=== PATIENT | female | born 1970 | race Caucasian/White ===

== ENCOUNTER 2022-04-25 06:31 | Emergency (ER) | payer MEDICAID, OTHER ==
[~2022-04-25] VITALS: Ht 149.9 cm; Wt 90.0 kg
[2022-04-25 08:48] LABS: Basophils # (auto) 0 10 ^3/uL (0-0.2); Eosinophils # (auto) 0.1 10 ^3/uL (0-0.8); Monocytes # (auto) 0.5 10 ^3/uL (0-1.3)
[2022-04-25 08:50] LABS: Basophils % (auto) 0.7 % (0.0-2.0); Eosinophils % (auto) 2.3 % (0.0-7.0); Hematocrit 44.2 % (36.0-46.0); Lymphocytes # (auto) 0.8 10 ^3/uL (0.4-5.4); Lymphocytes % (auto) 12.8 % (10.0-50.0); Mean Corpuscular Hemoglobin 25.4 pg (28.0-32.0); Mean Corpuscular Hgb Conc. 31.8 g/dL (32.0-36.0); Mean Corpuscular Volume 80.1 fL (80.0-100.0); Monocytes % (auto) 7.3 % (0.0-12.0); Neutrophils # (auto) 4.8 10 ^3/uL (1.6-8.6); Neutrophils % (auto) 76.9 % (37.0-80.0); Red Blood Cells 5.51 10^6/uL (4.0-5.20); Red Cell Distribution Width 15.6 % (11.8-14.3); White Blood Cell 6.2 10^3/uL (4.4-10.8)
[2022-04-25 09:02] LABS: Albumin 3.5 g/dL (3.4-5.0); Calcium 9.4 mg/dL (8.5-10.1); Potassium 3.8 mmol/L (3.5-5.1)
[2022-04-25 09:06] LABS: BUN/Creatinine Ratio 10.5; Bilirubin, Total 0.6 mg/dL (0.2-1.0); Total Protein 8.4 g/dL (6.4-8.2)
[2022-04-25 12:38] LABS: Urine Bacteria NONE SEEN /hpf (None Seen); Urine Blood Negative /uL (Negative); Urine Specific Gravity 1.009 (1.001-1.035); Urine WBC 4 /hpf (0 - 5)
[2022-04-25] MEDS ORDERED: AZIT1POW PO (14:40)
[2022-04-25] MEDS ORDERED: METH4PAK PO (14:40)
[2022-04-25] MEDS ORDERED: ASCO500T11 PO (14:40)
[2022-04-25 14:45] VITALS: BP 177/83
[2022-04-25] MEDS ORDERED: methylPREDNISolone SOD SUCC 125 MG/2 ML VL IM ONE (14:45)
== END 2022-04-25 15:07 | disposition home or self-care (01) ==
LOC: ER 06:31
DX: U07.1 COVID-19 (principal); J18.9 Pneumonia, unspecified organism; R06.00 Dyspnea, unspecified
CPT/HCPCS: 36415; 71045; 80053; 81001; 83880; 84484; 85025; 87426; 93005; 96372; 99285; J2930

== ENCOUNTER 2023-10-16 08:42 | Emergency (ER) | payer MEDICAID ==
[~2023-10-16] VITALS: Ht 149.9 cm; Wt 70.7 kg
[~2023-10-16 08:42] MED LIST: ASCO500T11 PO; AZIT1POW PO; METH4PAK PO
[2023-10-16 09:46] VITALS: BP 118/59; PULSE 85; RESP 18; TEMP 99.3; O2SAT 98
[2023-10-16] MEDS ORDERED: cefTRIAXone SOD 1,000 MG VL IM ONE (10:00)
[2023-10-16] MEDS ORDERED: AZIT-81 PO (10:00)
[2023-10-16] MEDS ORDERED: METH4PAK PO (10:00)
[2023-10-16] MEDS ORDERED: LIDOCAINE 1% HCL (LOCAL ANESTH.) INJ 20ML MDV IJ ONE (10:00)
== END 2023-10-16 10:16 ==
LOC: ER 08:42
DX: U07.1 COVID-19 (principal); J03.90 Acute tonsillitis, unspecified; Z79.2 Long term (current) use of antibiotics; Z79.899 Other long term (current) drug therapy
CPT/HCPCS: 96372; 99283; J0696; J2001

== ENCOUNTER 2025-03-09 13:23 | Inpatient (IN) | payer MEDICAID ==
[~2025-03-09] VITALS: Ht 149.9 cm; Wt 72.0 kg
[~2025-03-09 13:23] MED LIST changes: +AZIT-185 PO
--- NOTE | 2025-03-09 13:49 | ED.PDOC ---
History of Present Illness HPI Comments 54-year-old female came to the ER complaining of shortness a breath which started about a week ago. She does have a history of breast cancer which was initially diagnosed in 2017. She had remission until last year which she flared up. She has been followed at [facility]. She is on home oxygen. Her satur ation did go down in the low 70s when she came to the ER. Continue to monitor. Time Seen by MD: 13:34 Primary Care Provider: NONE Reviewed Notes: Nurses Notes, Medications, Allergies Allergies: Coded Allergies: Cephalexin (Verified Allergy, Unknown, 03/09/25) Latex (Verified Allergy, Unknown, 03/09/25) Uncoded Allergies: HEAT (Allergy, Unknown, 03/09/25) SUNSHINE (Allergy, Unknown, 03/09/25) Home Meds Active Scripts Methylprednisolone (Medrol Dosepak) 4 Mg Nilesh, 4 MG PO UD, #21 TAB UAD Prov:SUZI RASHID 10/16/23 Azithromycin (ZITHROMAX TABLET) 250 Mg Tb, 250 MG PO DAILY, #6 TAB Prov:SUZI RASHID 10/16/23 Ascorbic Acid (VITAMIN C TABLET) 500 Mg Tb, 1 TAB PO BID, #60 TAB Prov:VANESSA BOUDREAUX MD 04/25/22 Methylprednisolone (Medrol Dosepak) 4 Mg Nilesh, 4 MG PO UD, #21 TAB UAD Prov:VANESSA BOUDREAUX MD 04/25/22 Azithromycin (Zithromax) 1 Gm Pow, 1 PACK PO ONCE, #1 PACK Prov:VANESSA BOUDREAUX MD 04/25/22 Information Source: Patient Mode of Arrival: Wheelchair Severity: Moderate Timing: Days Duration: Since onset Past Medical History PAST MEDICAL HISTORY: Cancer Surgical History: Denies all surgeries PROPERTY INSPECTOR History: No Pertinent PROPERTY INSPECTOR History Family History Family History: Reviewed,noncontributory to illness, Family hx of DM Social History Smoker: Non-Smoker Alcohol: Denies ETOH Use Drugs: Denies Drug Use Lives In: Home Constitutional: denies: chills, diaphoresis, fatigue, fever, malaise, sweats, weakness, others EENTM: denies: blurred vision, double vision, ear bleeding, ear discharge, ear drainage, ear pain, ear ringing, eye pain, eye redness, hearing loss, mouth pain, mouth swelling, nasal discharge, nose bleeding, nose congestion, nose pain, photophobia, tearing, throat pain, throat swelling, voice changes, others Respiratory: reports: shortness of breath; denies: cough, hemoptysis, orthopnea, SOB at rest, SOB with excertion, stridor, wheezing, others Cardiovascular: reports: chest pain; denies: dizzy spells, diaphoresis, Dyspnea on exertion, edema, irregular heart beat, left arm pain, lightheadedness, palpitations, PND, syncope, others Gastrointestinal: denies: abdomen distended, abdominal pain, blood streaked bowels, constipated, diarrhea, dysphagia, difficulty swallowing, hematemesis, melena, nausea, poor appetite, poor fluid intake, rectal bleeding, rectal pain, vomiting, others Genitourinary: denies: abnormal vagina bleeding, burning, dyspareunia, dysuria, flank pain, frequency, hematuria, incontinence, pain, , vagina discharge, urgency, others Neurological: denies: dizziness, fainting, headache, left sided numbness, left sided weakness, numbness, paresthesia, pre-existing deficit, right sided numbness, right sided weakness, seizure, speech problems, tingling, tremors, weakness, others Musculoskeletal: denies: back pain, gout, joint pain, joint swelling, muscle pain, muscle stiffness, neck pain, others Integumetry: denies: bruises, change in color, change in hair/nails, dryness, laceration, lesions, lumps, rash, wounds, others Allergic/Immunocompromised: denies: Difficulty Healing, Frequent Infections, Hives, Itching, others Hematologic/Lymphatic: denies: anemia, blood clots, easy bleeding, easy bruising, swollen glands, others Endocrine: denies: excessive hunger, excessive sweating, excessive thirst, excessive urination, flushing, intolerance to cold, intolerance to heat, unexplained weight gain, unexplained weight loss, others Psychiatric: denies: anxiety, bipolar disorder, depression, hopeless, panic disorder, schizophrenia, sleepless, suicidal, others Physical Exam General Appearance: Moderate Distress HEENT: Normal ENT Inspection, Pharynx Normal, TMs Normal Neck: Full Range of Motion, Non-Tender, Normal, Normal Inspection Respiratory: Chest Non-Tender, Lungs Clear, No Accessory Muscle Use, No Respiratory Distress, Normal Breath Sounds Cardiovascular: No Edema, No JVD, No Murmur, No Gallop, Normal Peripheral Pulses, Regular Rate/Rhythm Breast Exam: Deferred Gastrointestinal: No Organomegaly, Non Tender, No Pulsatile Mass, Normal Bowel Sounds, Soft Genitalia: Deferred Pelvic: Deferred Rectal: Deferred Extremities: No calf tenderness, Normal capillary refill, Normal inspection, Normal range of motion, Non-tender, No pedal edema Musculoskeletal : Apperance: Normal Neurologic: Alert, general expeditor II-XII nml as Tested, No Motor Deficits, Normal Affect, Normal Mood, No Sensory Deficits Cerebellar Function: NOT DONE Reflexes: NOT DONE Skin: Dry, Normal Color, Warm Peripheral Pulses: 3+ Radial (R), 3+ Radial (L) Lymphatic: No Adenopathy Was a procedure done? Was a procedure done?: No Differential Dx Considerations may include: Pneumonitis Electrolyte imbalance X-Ray, Labs, Meds, VS Vital Signs Date Time Temp Pulse Resp B/P (MAP) Pulse Ox O2 Delivery O2 Flow Rate FiO2 03/09/25 14:23 24 88 Room Air* 0 21 03/09/25 14:06 98.4 95 24 119/72 (88) 88 98.4 Lab Test 03/09/25 14:03 03/09/25 13:57 Range/Units Urine Color Light-yellow Yellow Urine Clarity Clear Clear Urine pH 6.0 5.0-9.0 Urine Specific [place] > 1.050 H 1.001-1.035 Urine Protein Trace H Negative Urine Ketones Negative Negative Urine Blood Trace H Negative /uL Urine Nitrite Negative Negative Urine Bilirubin Negative Negative Urine Urobilinogen Normal Negative mg/dL Urine Leukocyte Esterase 2+ Negative /uL Urine RBC 5 0 - 4 /hpf Urine Microscopic WBC 29 H 0-5 /HPF Urine Squamous Epithelial Cells Few <5 /hpf Urine Bacteria Few H None Seen /hpf Urine Glucose Normal Normal mg/dL White Blood Count 6.6 4.4-10.8 10^3/uL Red Blood Count 4.60 4.0-5.20 10^6/uL Hemoglobin 13.6 12.2-16.2 g/dL Hematocrit 41.0 36.0-46.0 % Mean Corpuscular Volume 89.3 80.0-100.0 fL Mean Corpuscular Hemoglobin 29.5 28.0-32.0 pg Mean Corpuscular Hemoglobin Concent 33.1 32.0-36.0 g/dL Red Cell Distribution Width 18.0 H 11.8-14.3 % Platelet Count 216 140-450 10^3/uL Mean Platelet Volume 8.1 6.9-10.8 fL Neutrophils (%) (Auto) 86.6 H 37.0-80.0 % Lymphocytes (%) (Auto) 4.4 L 10.0-50.0 % Monocytes (%) (Auto) 7.6 0.0-12.0 % Eosinophils (%) (Auto) 1.0 0.0-7.0 % Basophils (%) (Auto) 0.4 0.0-2.0 % Neutrophils # (Auto) 5.7 1.6-8.6 10 ^3/uL Lymphocytes # (Auto) 0.3 L 0.4-5.4 10 ^3/uL Monocytes # (Auto) 0.5 0-1.3 10 ^3/uL Eosinophils # (Auto) 0.1 0-0.8 10 ^3/uL Basophils # (Auto) 0 0-0.2 10 ^3/uL Nucleated Red Blood Cells 0.0 % D-Dimer, Quantitative 1.61 H 0.0-0.49 mg/L FEU Sodium Level 140 136-145 mmol/L Potassium Level 3.7 3.5-5.1 mmol/L Chloride Level 104 98-107 mmol/L Carbon Dioxide Level 28 20-31 mmol/L Anion Gap 8 5-15 Blood Urea Nitrogen 11 9-23 mg/dL Creatinine 0.71 0.550-1.02 mg/dL Glomerular Filtration Rate Calc 100 >90 mL/min BUN/Creatinine Ratio 15.5 10.0-20.0 Serum Glucose 99 74-106 mg/dL Calcium Level 9.7 8.7-10.4 mg/dL Troponin I High Sensitivity 11 </=34 ng/L B-Type Natriuretic Peptide 10.15 0-100 pg/mL Current Medications Medications (Trade) Dose Ordered Sig/Mitali Route Start Time Stop Time Status Last Admin Ceftriaxone Sodium 50 ml @ 100 mls/hr ONCE ONCE IV 03/09/25 15:00 03/09/25 15:29 DC 03/09/25 16:08 Patient alert. Placed on oxygen. Complaining of shortness a breath. Answering questions. Possible pneumonitis. EKG reviewed does not show any acute changes. Reviewed her history. Explained to the patient. Continue monitoring. D-dimer elevated. Cardiac marker within normal limits. Was given Lovenox. Was given Rocephin. Was given azithromycin. Time of 1ST Reevaluation: 13:48 Reevaluation 1ST: Unchanged Patient Education/Counseling: Diagnosis, Treatment, Prognosis Family Education/Counseling: No Family Present Departure 1 Departure Time of Disposition: 13:49 Impression: Primary Impression: Pneumonitis Additional Impressions: Acute respiratory distress Elevated d-dimer Disposition: ADMITTED INPATIENT Admit to: Med Surg Condition: Guarded Critical Care Note Critical Care Time?: Yes (90 min-critical care time only) Critical care comment: Placed on oxygen Stability Stability form required: No Heart Score Heart Score: Heart Score Response (Comments) Value History Slightly Suspicious 0 EKG Normal 0 Age 45-64 1 Risk Factors >3 or Hx ASHD 2 Troponin Normal limit 0 Total 3 LESLIE PEREZ MD Mar 09, 2025 13:49
[2025-03-09 14:07] LABS: Basophils # (auto) 0 10 ^3/uL (0-0.2); Basophils % (auto) 0.4 % (0.0-2.0); Eosinophils # (auto) 0.1 10 ^3/uL (0-0.8); Hemoglobin 13.6 g/dL (12.2-16.2); Lymphocytes # (auto) 0.3 10 ^3/uL (0.4-5.4); Lymphocytes % (auto) 4.4 % (10.0-50.0); Mean Corpuscular Hemoglobin 29.5 pg (28.0-32.0); Mean Corpuscular Hgb Conc. 33.1 g/dL (32.0-36.0); Mean Corpuscular Volume 89.3 fL (80.0-100.0); Monocytes # (auto) 0.5 10 ^3/uL (0-1.3); Monocytes % (auto) 7.6 % (0.0-12.0); Neutrophils # (auto) 5.7 10 ^3/uL (1.6-8.6); Neutrophils % (auto) 86.6 % (37.0-80.0); Platelet Count (auto) 216 10^3/uL (140-450); White Blood Cell 6.6 10^3/uL (4.4-10.8)
--- NOTE | 2025-03-09 14:13 | DVH ---
INDICATION: sob TECHNIQUE: Frontal view of the chest. COMPARISON: CHEST PORTABLE on DOS: 04/25/22 FINDINGS: Cardiomegaly.. The heart and mediastinal contours are grossly unremarkable. There is no evidence of pleural disease. Increased interstitial opacities.. The bony structures of the chest are intact wi thout fracture. IMPRESSION: Cardiomegaly with CHF.
[2025-03-09 14:15] LABS: Chloride 104 mmol/L (98-107); Potassium 3.7 mmol/L (3.5-5.1); Sodium 140 mmol/L (136-145)
[2025-03-09 14:16] LABS: Anion Gap 8 (5-15); Calcium 9.7 mg/dL (8.7-10.4); Carbon Dioxide 28 mmol/L (20-31)
[2025-03-09 14:21] LABS: BUN/Creatinine Ratio 15.5 (10.0-20.0); Blood Urea Nitrogen 11 mg/dL (9-23); Glucose 99 mg/dL (74-106)
[2025-03-09 14:38] LABS: Urine Bacteria FEW /hpf (None Seen); Urine Blood TRACE /uL (Negative); Urine Clarity Clear (Clear); Urine Color Light-Yellow (Yellow); Urine Protein, UAD TRACE (Negative); Urine Squamous Epithelial Cell FEW /hpf (<5); Urine Urobilinogen Normal (Negative); Urine WBC 29 /HPF (0-5)
[2025-03-09 14:39] LABS: Urine Specific Gravity > 1.050 (1.001-1.035)
[2025-03-09] MEDS: IOHEXOL 350 MG/ML 100ML IJ ONE (15:53)
--- NOTE | 2025-03-09 15:55 | DVH ---
EXAM: CT CT ANGIO CHEST CONTRAST HISTORY: pe COMPARISON: Chest x-ray from earlier same day. PET-CT dated 01/18/2025 was not made available on the PACS system for viewing at this time. Radiation Dose: Chest: CTDI volume is 8.88 mGy. Dose-length product is 533.2 mGy*cm TECHNIQUE: Helical CT images of the chest were performed with IV contrast using pulmonary CTA protoco l. Sagittal and coronal reformatted images and 3D MIP images were obtained. This CT exam was performe d using 1 or more of the following dose reduction techniques: Automated exposure control, adjustment of the mA and/or kv according to patient size, or the use of iterative reconstruction techniques. FINDINGS: No pulmonary arterial filling defects are identified. There are moderate right and small le ft pleural effusions, with associated bilateral lower lobe atelectasis, greater on the right. There a re interstitial infiltrates throughout both lungs. There is marked peribronchial thickening. No pneum othorax. There are likely ill-defined enlarged lymph nodes in the upper mediastinum and subcarinal re gion. There is a moderate to large pericardial effusion. The heart is enlarged. The central pulmonar y arteries are ectatic. No thoracic aortic aneurysm or dissection. The left vertebral artery arises d irectly from the aortic arch. Multiple gallstones are identified. There is [id number] thoracic degenerative disc disease. There is slight thoracic dextroscoliosis. Central disc herniation causes moderate spinal canal stenosis at the T7-T8 level. IMPRESSION: 1. No evidence of pulmonary embolism. 2. Cardiomegaly, bilateral pleural effusions, diffuse bilateral interstitial infiltrates, and peribro nchial thickening suggestive of CHF exacerbation. Additionally, peribronchial thickening can be seen with reactive airways disease. 3. Moderate to large pericardial effusion. 4. Pulmonary arterial hypertension. 5. Ill-defined mediastinal lymphadenopathy was described on previous PET-CT dated 01/18/2025, althoug h those images are not available for my viewing at this time. 6. Cholelithiasis. The gallbladder is not fully imaged here. 7. T7-T8 central disc herniation causes moderate spinal canal stenosis at that level. Recommend follo w-up outpatient noncontrast thoracic spine MRI for better characterization as there may be mass effec t on the thoracic spinal cord.
[2025-03-09] MEDS: ENOXAPARIN SOD 80 MG/0.8ML SYRINGE SC ONE (16:06)
[2025-03-09] MEDS: cefTRIAXone 1GM/50ML D5W 50 ML IV ONE (16:08)
[2025-03-09 16:40] VITALS: PULSE 94; RESP 15; O2SAT 94
[2025-03-09] MEDS: AZITHROMYCIN 500MG/ 250ML 250 ML IV ONE (17:25)
[2025-03-09 19:30] VITALS: PULSE 94; RESP 20; O2SAT 94
[2025-03-09] MEDS ORDERED: ACETAMINOPHEN 325 MG TAB PO PRN (22:15)
--- NOTE | 2025-03-09 22:30 | DVHHPRES ---
History of Present Illness Resident Creating Document: BEBTEO MARQUES RESIDENT History of Present Illness This is a 54-year-old female with past medical history of stage IV breast cancer HER2 positive (currently on chemotherapy in [facility]). Patient presented to the ED with chief complaint of shortness of breaths. The patient states that his shortness of breaths started one week and a half ago and states that is worse in supine position or laying down and improves with the patient is on sitting position or leaning forward. Patient states that she does not use oxyge n at home. The patient denies chest pain, fever/chills, abdominal tenderness, lower extremity swelling or pain or any other associated symptoms at this time. Upon admission, patient was requiring 4 L of oxygen through nasal cannula. Initial chest x-ray was showing cardiomegaly with mild congestion or scarring tissue. A CT angio of the chest was performed showing no evidence of pulmonary embolism but was showing bilateral pleural effusion that was worse in the right side with diffuse bilateral interstitial infiltrates and peribronchial thickening. There was also moderate to large pericardial effusion. We will order a chest ultrasound to quantify fluid in the right lung base determine the need of right-sided thoracentesis. We will consult interventional radiologist for possible right-sided thoracentesis and pericardiocentesis. We will admit the patient for further assessment and management. Past medical history: Stage IV breast cancer HER2 positive. The patient states that was initially diagnosed in 2006 with stage III breast cancer, at that time she received six rounds of chemotherapy, surgery and radiation for one month. S he was in remission until June of 2022 where she was diagnosed again with stage IV breast cancer and has been on chemotherapy since then. Two thousand twenty-three apparently patient had metastasis and received brain radiation. Patient still on chemotherapy at this time which we will be prolonged lung live. No additional past medical history per patient. Past surgical history: Left-sided lumpectomy with removal of seven lymph nodes. Social history: Denies smoking, alcohol or drug intake. lives with her family Past Surgical History: Other (Left lumpectomy and removal of seven lymph nodes) Family History: None Smoke: No ALCOHOL: none Drugs: None Lives: with Family Domestic Violence: Neg Review of Systems Constitutional: No: Fever, Chills, Sweats, Weakness, Malaise, Other Eyes: No: Pain, Vision change, Conjunctivae inflammation, Eyelid inflammation, Other, Redness ENT: No: Ear pain, Ear discharge, Nose pain, Nose discharge, Nose congestion, Mouth pain, Mouth swelling, Throat pain, Throat swelling, Other Respiratory: Shortness of breath, SOB with excertion; No: Cough, Dry, Wheezing, Hemoptysis, Pleuritic Pain, Sputum, Wheezing, Other Cardiovascular: Orthopnea; No: Chest Pain, Palpitations, Paroxysmal Noc. Dysp nicole, Edema, Lt Headedness, Other Gastrointestinal: No: Nausea, Vomiting, Abdominal Pain, Diarrhea, Constipation, Melena, Hematochezia, Other Genitourinary: No Dysuria, No Frequency, No Incontinence, No Hematuria, No Retention, No Other Musculoskeletal: No: other, neck pain, shoulder pain, arm pain, back pain, hand pain, leg pain, foot pain Skin: No: Rash, Lesions, Jaundice, Bruising, Other Neurological: No: Weakness, Numbness, Incoordination, Change in speech, Confusion, Seizures, Other Allergies: Coded Allergies: Cephalexin (Verified Allergy, Unknown, 03/09/25) Latex (Verified Allergy, Unknown, 03/09/25) Uncoded Allergies: HEAT (Allergy, Unknown, 03/09/25) SUNSHINE (Allergy, Unknown, 03/09/25) Medications Current Medications Medications Dose Ordered Sig/Mitali Route Start Time Stop Time Status Last Admin Dose Admin Acetaminophen 650 mg Q6HP PRN PO 03/09/25 22:15 UNV Enoxaparin Sodium 40 mg DAILY SC 03/10/25 10:00 UNV Exam Vital Signs Vital Signs Date Time Temp Pulse Resp B/P (MAP) Pulse Ox O2 Delivery O2 Flow Rate FiO2 03/09/25 20:00 86 20 134/84 (101) 94 03/09/25 16:40 Nasal Cannula* 2 28 03/09/25 14:06 98.4 98.4 General Appearance: Alert, Oriented X3, Cooperative, mild distress HEENT: Atraumatic, PERRLA, EOMI, Mucous membr. moist/pink Respiratory: Normal air movement, Other (Patient is currently requiring 4 L of oxygen through nasal cannula. There are bilateral lung crackles on both castellano with decreased breath sounds in the right lung base.) Cardiovascular: Regular rate, Normal S1, Normal S2, No murmurs Abdominal: Normal bowel sounds, Soft, No tenderness, No hepatospenomegaly Extremities: No clubbing, No cyanosis, No edema, Normal pulses, No tenderness/swelling Skin: No rashes, No breakdown, No significant lesion Neuro: Normal gait, Normal speech, Strength at 5/5 X4 ext, Normal tone, Sensation intact, Cranial nerves 3-12 NL, Reflexes 2+ Psych/Mental Status: Mental status NL, Mood NL Labs/Xrays Labs Test 03/09/25 14:03 03/09/25 13:57 Range/Units Urine Color Light-yellow Yellow Urine Clarity Clear Clear Urine pH 6.0 5.0-9.0 Urine Specific [place] > 1.050 H 1.001-1.035 Urine Protein Trace H Negative Urine Ketones Negative Negative Urine Blood Trace H Negative /uL Urine Nitrite Negative Negative Urine Bilirubin Negative Negative Urine Urobilinogen Normal Negative mg/dL Urine Leukocyte Esterase 2+ Negative /uL Urine RBC 5 0 - 4 /hpf Urine Microscopic WBC 29 H 0-5 /HPF Urine Squamous Epithelial Cells Few <5 /hpf Urine Bacteria Few H None Seen /hpf Urine Glucose Normal Normal mg/dL White Blood Count 6.6 4.4-10.8 10^3/uL Red Blood Count 4.60 4.0-5.20 10^6/uL Hemoglobin 13.6 12.2-16.2 g/dL Hematocrit 41.0 36.0-46.0 % Mean Corpuscular Volume 89.3 80.0-100.0 fL Mean Corpuscular Hemoglobin 29.5 28.0-32.0 pg Mean Corpuscular Hemoglobin Concent 33.1 32.0-36.0 g/dL Red Cell Distribution Width 18.0 H 11.8-14.3 % Platelet Count 216 140-450 10^3/uL Mean Platelet Volume 8.1 6.9-10.8 fL Neutrophils (%) (Auto) 86.6 H 37.0-80.0 % Lymphocytes (%) (Auto) 4.4 L 10.0-50.0 % Monocytes (%) (Auto) 7.6 0.0-12.0 % Eosinophils (%) (Auto) 1.0 0.0-7.0 % Basophils (%) (Auto) 0.4 0.0-2.0 % Neutrophils # (Auto) 5.7 1.6-8.6 10 ^3/uL Lymphocytes # (Auto) 0.3 L 0.4-5.4 10 ^3/uL Monocytes # (Auto) 0.5 0-1.3 10 ^3/uL Eosinophils # (Auto) 0.1 0-0.8 10 ^3/uL Basophils # (Auto) 0 0-0.2 10 ^3/uL Nucleated Red Blood Cells 0.0 % D-Dimer, Quantitative 1.61 H 0.0-0.49 mg/L FEU Sodium Level 140 136-145 mmol/L Potassium Level 3.7 3.5-5.1 mmol/L Chloride Level 104 98-107 mmol/L Carbon Dioxide Level 28 20-31 mmol/L Anion Gap 8 5-15 Blood Urea Nitrogen 11 9-23 mg/dL Creatinine 0.71 0.550-1.02 mg/dL Glomerular Filtration Rate Calc 100 >90 mL/min BUN/Creatinine Ratio 15.5 10.0-20.0 Serum Glucose 99 74-106 mg/dL Calcium Level 9.7 8.7-10.4 mg/dL Troponin I High Sensitivity 11 </=34 ng/L B-Type Natriuretic Peptide 10.15 0-100 pg/mL Assessment/Plan Assessment/Plan Assessment/plan Acute hypoxic respiratory failure likely due to right-sided pleural effusion and pericardial effusion Right-sided pleural effusion likely due to malignancy Acute pericardial effusion likely due to malignancy Possible acute multifocal pneumonia Acute urinary tract infection History of breast cancer diagnosed in 2017, currently on chemotherapy ([facility]) Plan -initial chest x-ray showed cardiomegaly with congestion/possible scarring tissue -CT angio of the chest showed no evidence of pulmonary embolism but did show bilateral pleural effusion worse in the right side. There was also diffuse bilateral interstitial infiltrates and peribronchial thickening. There was also moderate to large pericardial effusion. -patient is currently requiring 4 L of oxygen through nasal cannula. Shortness of breath is worse lying down, improved in sitting position and leaning forward. -continue azithromycin and ceftriaxone for possible bilateral interstitial infiltrates. This imaging findings could also be due to scarring tissue. -start furosemide 40 mg IV daily -strict in's and out -ordered chest ultrasound to quantify right-sided pleural effusion and determine the need of right-sided thoracentesis. -ordered echocardiogram -consulted interventional radiologist for right-sided thoracentesis and possible pericardiocentesis. Goals of care discussed with the patient at bedside for >35min, FULL CODE Plan discussed with Dr. Whaley Plan discussed with: Patient My Orders Orders - BEBETO MARQUES Procedure Category Date Status Time Admit ADMIT 03/09/25 Transmitted 22:03 Code Status CODE 03/09/25 Transmitted 22:03 Vital Signs WANG 03/09/25 In Process 22:03 Review Orders With WANG 03/09/25 In Process Adm. 22:03 Encourage Activity As WANG 03/09/25 In Process Tolerate 22:03 Npo (Nothing By DIET 03/10/25 Transmitted Mouth) Diet Breakfast Acetaminophen Tablet PHA 03/09/25 Logged (Tylenol Tablet) 22:15 Notify Of Changes WANG 03/09/25 In Process From Base 22:03 Advance Directive WANG 03/09/25 In Process 22:03 Echo 2d Mode Cardiac US 03/09/25 Logged DOP 22:03 Basic Metabolic Panel LAB 03/10/25 Verified 04:00 Complete Blood Count LAB 03/10/25 Verified 04:00 Lipid Panel LAB 03/09/25 Logged 22:03 Urine Bacterial VASU 03/09/25 In Process Culture 22:03 Patient Condition ORDERS 03/09/25 Transmitted 22:03 Allergies WANG 03/09/25 In Process 22:03 Drug Screen LAB 03/09/25 In Process 22:03 Hemoglobin A1c LAB 03/09/25 Logged 22:03 Enoxaparin Sodium PHA 03/10/25 Logged (Lovenox) 10:00 Chest Ultrasound US 03/09/25 Logged 22:09 Azithromycin Tablet PHA 03/10/25 Verified (Zithromax Tablet) 10:00 Ceftriaxone Ivpb PHA 03/10/25 Verified Rocephin 10:00 Albuterol Medneb PHA 03/09/25 Verified (Ventolin Medneb) 22:15 Ipratropium Medneb PHA 03/09/25 Verified (Atrovent Medneb) 22:15 Furosemide Injection PHA 03/10/25 Verified (Lasix Injection) 10:00 Strict I & O WANG 03/09/25 Verified 22:10 * Radiologist Consult CONS 03/09/25 Verified 22:10 Date of Service: Mar 09, 2025 Billing Provider: BEBETO MARQUES Common Visit Codes: 75084-[id number] INP/OBS CARE (HIGH) Secondary Visit Codes: 82914-GGFWXLRI CARE PLAN 30 MINUTES BEBETO MARQUES RESIDENT Mar 09, 2025 22:30
--- NOTE | 2025-03-09 22:38 | DVH ---
Bilateral Chest Sonogram Date: 03/09/2025 10:13 PM Clinical history: QUANTIFY PLEURAL EFFUSION Findings/impression: Right-sided pleural effusion is identified. Left lung demonstrates no pleural e ffusion.
[2025-03-09] MEDS: IPRATROPIUM BROM 0.5 MG/2.5ML INH SOL NEB ONE (22:41)
[2025-03-09] MEDS: ALBUTEROL SULF 2.5 MG/0.5ML(0.5%) NEB SOLN NEB ONE (22:41)
[2025-03-09 22:48] LABS: LDL Cholesterol 76 mg/dL (< 100); Triglycerides 64 mg/dL (< 150)
[2025-03-09 22:50] LABS: Cholesterol 135 mg/dL (< 200); HDL Cholesterol 50 mg/dL (40-59)
[2025-03-09 22:57] LABS: Amphetamine Screen, Urine Neg (NEGATIVE); Barbiturate Scree,Urine Neg (NEGATIVE); Benzodiazephine Screen, Urine Neg (NEGATIVE); Cocaine Screen, Urine Neg (NEGATIVE); Opiate Scree,Urine Neg (NEGATIVE)
[2025-03-09 22:58] LABS: Cannabinoid Screen, Urine Neg (NEGATIVE); Phencyclidine Screen, Urine Neg (NEGATIVE)
[2025-03-10] VITALS (9 sets, daily range): BP systolic 110–138; BP diastolic 53–84; PULSE 86–99; RESP 16–18; TEMP 97.2–97.9; O2SAT 91–98
[2025-03-10 07:36] LABS: Basophils # (auto) 0 10 ^3/uL (0-0.2); Basophils % (auto) 0.4 % (0.0-2.0); Eosinophils # (auto) 0.1 10 ^3/uL (0-0.8); Eosinophils % (auto) 0.9 % (0.0-7.0); Hematocrit 39.5 % (36.0-46.0); Lymphocytes # (auto) 0.2 10 ^3/uL (0.4-5.4); Lymphocytes % (auto) 3.1 % (10.0-50.0); Mean Corpuscular Hemoglobin 29.4 pg (28.0-32.0); Mean Corpuscular Hgb Conc. 32.9 g/dL (32.0-36.0); Mean Corpuscular Volume 89.3 fL (80.0-100.0); Monocytes # (auto) 0.6 10 ^3/uL (0-1.3); Monocytes % (auto) 9.4 % (0.0-12.0); Neutrophils # (auto) 5.1 10 ^3/uL (1.6-8.6); Neutrophils % (auto) 86.2 % (37.0-80.0); Nucleated Red Blood Cells % 0.2 %; Platelet Count (auto) 195 10^3/uL (140-450); Red Blood Cells 4.42 10^6/uL (4.0-5.20); Red Cell Distribution Width 17.5 % (11.8-14.3)
[2025-03-10 07:54] LABS: Anion Gap 8 (5-15); Carbon Dioxide 26 mmol/L (20-31); Potassium 3.6 mmol/L (3.5-5.1); Sodium 142 mmol/L (136-145)
[2025-03-10 07:55] LABS: Calcium 9.9 mg/dL (8.7-10.4)
[2025-03-10 07:57] LABS: Chloride 108 mmol/L (98-107)
[2025-03-10 07:59] LABS: Glucose 76 mg/dL (74-106)
[2025-03-10 08:00] LABS: BUN/Creatinine Ratio 13.7 (10.0-20.0); Blood Urea Nitrogen 7 mg/dL (9-23)
[2025-03-10] MEDS: AZITHROMYCIN 250 MG TAB PO SCH (10:00)
--- NOTE | 2025-03-10 10:06 | DVH ---
PROCEDURE: Ultrasound-guided thoracentesis Procedural Personnel Attending physician(s): Kiko Yap Fellow physician(s): None Resident physician(s): None A dvanced practice provider(s): None Pre-procedure diagnosis: Dyspnea Post-procedure diagnosis: Same Indication: Diagnostic and therapeutic Additional clinical history: None Complications: No immediate complications. IMPRESSION: Ultrasound-guided thoracentesis with drainage of 400 mL of serous fluid. Plan: Resume care by clinical team. Fluid analysis pending. PROCEDURE SUMMARY: - Ultrasound-guided thoracentesis - Additional procedure(s): None PROCEDURE DETAILS: Pre-procedure Consent: Informed consent for the procedure including risks, benefits and alternatives was obtained and time-out was performed prior to the procedure. Preparation: The site was prepared an d draped using maximal sterile barrier technique including cutaneous antisepsis. Anesthesia/sedation level of anesthesia/sedation: No sedation Anesthesia/sedation administered by: Not applicable Total intra-service sedation time (minutes): Not applicable Limited thoracic ultrasound Limited thoracic ultrasound was performed. Left hemithorax findings: Not investigated Right hemithorax findings: Small pleural effusion Thoracentesis Local anesthesia was administered. A safe window for thoracentesis was identified with ultrasound. Th e pleural space was accessed and fluid return confirmed position. The fluid was drained. The catheter was removed and a sterile dressing was applied. Catheter size (Fr):5 Catheter valve: Yes Fluid appearance: serous Volume drained (mL): 400 Post-drainage ultrasound: No visible effusion Additional Details Additional description of procedure: None Registry event: V/3/f Device used: None Equipment details: None Specimens removed: Aspirated fluid was sent for analysis. Estimated blood loss (mL): Less than 10 Standardized report: [email or web address] Attestation Signer name: Kiko Yap I attest that I was present for the entire procedure. I reviewed the stored images and agree with the report as written.
--- NOTE | 2025-03-10 10:17 | ECG ---
[facility] Test Date: 2025-03-10 Test Time: 10:16:03 Pat Name: KRISTIN KING Department: Respiratoy Room: 0217T B Gender: F Engineering Program Manager: RAINA : 1970 Requested By: ROSE CASTORENA Order Number: [id number] Reading MD: Renny Tucker Measurements Intervals [place] Rate: 89 P: 15 ID: 160 QRS: -41 QRSD: 96 T: 19 QT: 365 QTc: 445 Interpretive Statements Sinus rhythm Inferior infarct, old Consider anterior infarct Electronically Signed On 03-10-2025 12:40:40 PDT by Renny Tucker Please click the below link to view image of tracing.
--- NOTE | 2025-03-10 10:19 | DVH ---
XY CHEST PORTABLE, HISTORY: POST THORACENTESIS COMPARISON: XY CHEST PORTABLE on DOS: 03/09/25, CHEST PORTABLE on DOS: 04/25/22 XY CHEST PORTABLE on DOS: 03/09/25, CHEST PORTABLE on DOS: 04/25/22 TECHNICAL DATA: 1 view of the chest was obtained. FINDINGS: Lines and tubes: None Cardiomediastinal silhouette: prominent Pulmonary vasculature: prominent Lung expansion: low Lung airspace: Patchy bibasilar. Lung interstitium: normal Pleura: Trace bilateral effusion. Pneumothorax: no Bones: Unremarkable Other: no IMPRESSION: No pneumothorax visualized post thoracentesis. Hypoexpanded lungs with pulmonary vascular congestion and bibasilar atelactasis.
--- NOTE | 2025-03-10 10:22 | DVHINCON2 ---
Date Seen: Mar 10, 2025 Referring Physician MD Brenda Reason for Consultation Pericardial effusion History of Present Illness This is a 54-year-old female patient who presents to the emergency room with chief complaint of worsening shortness of breath for one and a half weeks prior to emergency room arrival. The patient reports that yesterday she was being seen at an imaging center for a CT scan and was unable to lie flat. Personnel at the imaging facility noticed that the patient had increased work of breathing and that her lips were becoming discolored. She was prompted to come to the emergency room for further evaluation. CT imaging during this admission found a moderate to large pericardial effusion, bilateral pleural effusions, and cardiomegaly. Cardiology has been consulted at this point to further evaluate the moderate to large pericardial effusion. No twelve lead electrocardiogram was performed in the emergency room or during this admission. No echocardiogram done in the emergency room. The patient denies any chest pain or palpitations. 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 The patient reports that she was initially diagnosed with stage III (HER 2+) breast cancer in 2016 in which she underwent chemotherapy and was in remission in 2018. She reports her cancer came back in 2021 at stage IV and has been undergoing chemotherapy treatment at [facility] since then. Past Medical History Past medical history reviewed. No other significant than mentioned above. Past Surgical History Breast lumpectomy in 2022 Lymph node removal x 7 in 2022 Family History: Arthritis G8 MOTHER Cardiovascular disease G8 MOTHER Diabetes mellitus G8 FATHER G8 BROTHER Hypertension G8 MOTHER Family History Family history reviewed. Social History Denies the use of tobacco, alcohol or illicit drugs. Allergies: Coded Allergies: Cephalexin (Verified Allergy, Unknown, 03/09/25) Latex (Verified Allergy, Unknown, 03/09/25) Uncoded Allergies: HEAT (Allergy, Unknown, 03/09/25) SUNSHINE (Allergy, Unknown, 03/09/25) Home Meds Active Scripts Methylprednisolone (Medrol Dosepak) 4 Mg Nilesh, 4 MG PO UD, #21 TAB UAD Prov:SUZI RASHID 10/16/23 Azithromycin (ZITHROMAX TABLET) 250 Mg Tb, 250 MG PO DAILY, #6 TAB Prov:RACHIDSUZI TRUMAN 10/16/23 Ascorbic Acid (VITAMIN C TABLET) 500 Mg Tb, 1 TAB PO BID, #60 TAB Prov:VANESSA BOUDREAUX MD 04/25/22 Methylprednisolone (Medrol Dosepak) 4 Mg Nilesh, 4 MG PO UD, #21 TAB UAD Prov:VANESSA BOUDREAUX MD 04/25/22 Azithromycin (Zithromax) 1 Gm Pow, 1 PACK PO ONCE, #1 PACK Prov:VANESSA BOUDREAUX MD 04/25/22 Home Meds Home medications reviewed. Current Medications Current Medications Medications (Trade) Dose Ordered Sig/Mitali Route PRN Reason Start Time Stop Time Status Last Admin Acetaminophen (Tylenol Tablet) 650 mg Q6HP PRN PO PAIN SCALE 1-3 OR TEMP>100.4 03/09/25 22:15 Enoxaparin Sodium (Lovenox) 40 mg DAILY SC 03/10/25 10:00 Azithromycin (Zithromax Tablet) 250 mg DAILY PO 03/10/25 10:00 Ceftriaxone Sodium 50 ml @ 100 mls/hr DAILY IV 03/10/25 10:00 Furosemide (Lasix Injection) 40 mg DAILY IV 03/10/25 10:00 Review of Systems Constitutional: No symptom reported Ears, Nose, & Throat: No symptom reported Eyes: No symptom reported Neurological: No symptoms reported Pulmonary/Respiratory: Shortness of breath Cardiovascular: No symptom reported Gastrointestinal: No symptom reported Genitourinary: No symptom reported Musculoskeletal: No symptom reported Skin: No symptom reported Psychiatric: No symptom reported Endocrine: No symptom reported Hematologic/Lymphatic: No symptom reported Vital Signs Vital Signs Date Time Temp Pulse Resp B/P (MAP) Pulse Ox O2 Delivery O2 Flow Rate FiO2 03/10/25 09:00 97.4 89 17 110/53 (72) 91 97.4 03/10/25 00:05 Nasal Cannula* 4 36 Physical Exam General Appearance: Cooperative. Obese Pulmonary/Respiratory: Diminished throughout Cardiovascular/Chest: Regular rate and rhythm. Peripheral Pulses: 2+ Radial (R). 2+ Radial (L). 2+ Pedal (R). 2+ Pedal (L) Abdominal Exam: Normal bowel sounds. Ankle Exam: Negative ankle edema Lower extremities: Negative lower extremity edema Neuro/Mental Status: A/OX4, coherent. Thoughts/Psych: Normal thought pattern. Appropriate mood and affect. Good judgment and insight. Appearance: No acute distress. Skin Exam: Normal inspection. Normal color. Warm and dry. Labs/Diagnostic Data Labs Test 03/10/25 05:37 03/09/25 14:03 03/09/25 13:57 Range/Units White Blood Count 6.0 4.4-10.8 10^3/uL Red Blood Count 4.42 4.0-5.20 10^6/uL Hemoglobin 13.0 12.2-16.2 g/dL Hematocrit 39.5 36.0-46.0 % Mean Corpuscular Volume 89.3 80.0-100.0 fL Mean Corpuscular Hemoglobin 29.4 28.0-32.0 pg Mean Corpuscular Hemoglobin Concent 32.9 32.0-36.0 g/dL Red Cell Distribution Width 17.5 H 11.8-14.3 % Platelet Count 195 140-450 10^3/uL Mean Platelet Volume 8.7 6.9-10.8 fL Neutrophils (%) (Auto) 86.2 H 37.0-80.0 % Lymphocytes (%) (Auto) 3.1 L 10.0-50.0 % Monocytes (%) (Auto) 9.4 0.0-12.0 % Eosinophils (%) (Auto) 0.9 0.0-7.0 % Basophils (%) (Auto) 0.4 0.0-2.0 % Neutrophils # (Auto) 5.1 1.6-8.6 10 ^3/uL Lymphocytes # (Auto) 0.2 L 0.4-5.4 10 ^3/uL Monocytes # (Auto) 0.6 0-1.3 10 ^3/uL Eosinophils # (Auto) 0.1 0-0.8 10 ^3/uL Basophils # (Auto) 0 0-0.2 10 ^3/uL Nucleated Red Blood Cells 0.2 % Sodium Level 142 136-145 mmol/L Potassium Level 3.6 3.5-5.1 mmol/L Chloride Level 108 H 98-107 mmol/L Carbon Dioxide Level 26 20-31 mmol/L Anion Gap 8 5-15 Blood Urea Nitrogen 7 L 9-23 mg/dL Creatinine 0.51 L 0.550-1.02 mg/dL Glomerular Filtration Rate Calc 110 >90 mL/min BUN/Creatinine Ratio 13.7 10.0-20.0 Serum Glucose 76 74-106 mg/dL Calcium Level 9.9 8.7-10.4 mg/dL Urine Color Light-yellow Yellow Urine Clarity Clear Clear Urine pH 6.0 5.0-9.0 Urine Specific [place] > 1.050 H 1.001-1.035 Urine Protein Trace H Negative Urine Ketones Negative Negative Urine Blood Trace H Negative /uL Urine Nitrite Negative Negative Urine Bilirubin Negative Negative Urine Urobilinogen Normal Negative mg/dL Urine Leukocyte Esterase 2+ Negative /uL Urine RBC 5 0 - 4 /hpf Urine Microscopic WBC 29 H 0-5 /HPF Urine Squamous Epithelial Cells Few <5 /hpf Urine Bacteria Few H None Seen /hpf Urine Glucose Normal Normal mg/dL Urine Opiates Screen Neg NEGATIVE Urine Fentanyl Screen Neg NEGATIVE Urine Barbiturates Screen Neg NEGATIVE Urine Phencyclidine Screen Neg NEGATIVE Urine Amphetamines Screen Neg NEGATIVE Urine Benzodiazepines Screen Neg NEGATIVE Urine Cocaine Screen Neg NEGATIVE Urine Cannabinoids Screen Neg NEGATIVE D-Dimer, Quantitative 1.61 H 0.0-0.49 mg/L FEU Hemoglobin A1c 5.2 <5.7 % A1C Troponin I High Sensitivity 11 </=34 ng/L B-Type Natriuretic Peptide 10.15 0-100 pg/mL Triglycerides Level 64 < 150 mg/dL Cholesterol Level 135 < 200 mg/dL LDL Cholesterol 76 < 100 mg/dL HDL Cholesterol 50 40-59 mg/dL Assessment Pericardial effusion, rule out cardiac tamponade Acute hypoxic respiratory failure Right-sided pleural effusion History of stage IV breast cancer (HER 2+) Obesity Plan/Recommendation We will continue with the following plan/recommendations (Dr. Beltran): Case discussed with . A chest CT revealed a moderate to large pericardial effusion. We will proceed with obtaining a STAT echocardiogram to evaluate pericardial effusion. Clinically, the patient does not present with any signs of tamponade at the time of assessment. Continue to closely monitor vital signs and hemodynamic stability. Upgrade the patient to telemetry monitoring. Thank you for allowing us to care for this patient. Please call with any questions or concerns. Critical care time spent: 44 minutes This medical document was created using an electronic medical record system with voice recognition software and computerized dictation system. Although this document has been carefully reviewed, there might still be some phonetic and typographical errors. Occasional wrong-word or ``sound-alike substitutions may have occurred due to the inherent limitations of voice recognition software. These areas are purely typographical due to imperfections of the software programs and do not reflect any compromise in the patient's medical care. Vane long read the chart carefully and recognize, using context, where these substitutions have occurred. Plan discussed with: Patient NYHA Physical activity limitations: NA Date of Service: Mar 10, 2025 Billing Provider: SILVIO JIMÉNEZ Cardiology Common Codes: 86102-JNMLOVT INP/OBS CARE (High) Cardiology Consultation Codes: [id number] CONSULT <45MIN SILVIO JIMÉNEZ Mar 10, 2025 10:22
[2025-03-10] MEDS: FUROSEMIDE 40 MG/4 ML VIAL IV SCH (10:30)
[2025-03-10] MEDS: cefTRIAXone 1GM/50ML D5W 50 ML IV SCH (10:31)
[2025-03-10] MEDS: ENOXAPARIN SOD 40 MG/0.4 ML SYRINGE SC SCH (10:54)
[2025-03-10 12:58] LABS: Body Fluid Red Blood Cells 1886 CUMM (0-2000); Body Fluid White Blood Cells 1307 CUMM (0-200)
--- NOTE | 2025-03-10 13:30 | DVHPNRES ---
Progress Note Date Seen: Mar 10, 2025 Resident Creating Document: ROSE AGUILAR RESIDENT Has the PT tested + for MRSA If YES, has PT been informed?: No Medical Necessity Reason Pt with a Central, PICC or Fol: No Subjective Review of Systems This is a 54-year-old female with past medical history of stage IV breast cancer HER2 positive (currently on chemotherapy in [facility]). Patient presented to the ED with chief complaint of shortness of breaths. The patient states that his shortness of breaths started one week and a half ago and states that is worse in supine position or laying down and improves with the patient is on sitting position or leaning forward. Patient states that she does not use oxygen at home. The patient denies chest pain, fever/chills, abdominal tenderness, lower extremity swelling or pain or any other associated symptoms at this time. Upon admission, patient was requiring 4 L of oxygen through nasal cannula. Initial chest x-ray was showing cardiomegaly with mild congestion or scarring tissue. A CT angio of the chest was performed showing no evidence of pulmonary embolism but was showing bilateral pleural effusion that was worse in the right side with diffuse bilateral interstitial infiltrates and peribronchial thickening. There was also moderate to large pericardial effusion. We will order a chest ultrasound to quantify fluid in the right lung base determine the need of right-sided thoracentesis. We will consult interventional radiologist for possible right-sided thoracentesis and pericardiocentesis. We will admit the patient for further assessment and management. Past medical history: Stage IV breast cancer HER2 positive. The patient states that was initially diagnosed in 2006 with stage III breast cancer, at that time she received six rounds of chemotherapy, surgery and radiation for one month. She was in remission until June of 2022 where she was diagnosed again with stage IV breast cancer and has been on chemotherapy since then. Two thousand twenty-three apparently patient had metastasis and received brain radiation. Patient still on chemotherapy at this time which we will be prolonged lung live. No additional past medical history per patient. Past surgical history: Left-sided lumpectomy with removal of seven lymph nodes. Social history: Denies smoking, alcohol or drug intake. lives with her family Past Surgical History: Other (Left lumpectomy and removal of seven lymph nodes) Family History: None Smoke: No ALCOHOL: none Drugs: None Lives: with Family Domestic Violence: Neg 03/10/2025: patient had right pleural effusion, thoracentesis was done, 400 cc drained, pericardial effusion is mild in the ECHO, patient is hemodynamically stable, no need of drainage for now, continue IV treatment for possible pneumonia, case discussed with the patient, also possible lung and pleural mets, prognosis poor Objective vital signs Vital Sign Date Time Temp Pulse Resp B/P (MAP) Pulse Ox O2 Delivery O2 Flow Rate FiO2 03/10/25 10:30 116/83 03/10/25 09:00 97.4 89 17 91 97.4 03/10/25 08:00 Nasal Cannula* 4 36 Total Intake and Output 03/09/25 03/09/25 03/10/25 15:00 23:00 07:00 Intake Total 1000 ml Balance 1000 ml medications Current Medications Medications Dose Ordered Sig/Mitali Route Start Time Stop Time Status Last Admin Dose Admin Acetaminophen 650 mg Q6HP PRN PO 03/09/25 22:15 Enoxaparin Sodium 40 mg DAILY SC 03/10/25 10:00 03/10/25 10:54 40 MG Azithromycin 250 mg DAILY PO 03/10/25 10:00 Ceftriaxone Sodium 50 ml @ 100 mls/hr DAILY IV 03/10/25 10:00 03/10/25 10:31 100 MLS/HR Furosemide 40 mg DAILY IV 03/10/25 10:00 03/10/25 10:30 40 MG Examination General Appearance: Alert, Oriented X3, Cooperative, mild distress HEENT: Atraumatic, PERRLA, EOMI, Mucous membr. moist/pink Respiratory: Patient is currently requiring 4 L of oxygen through nasal cannula. There are bilateral lung crackles on both castellano Cardiovascular: Regular rate, Normal S1, Normal S2, No murmurs Abdominal: Normal bowel sounds, Soft, No tenderness, No hepatospenomegaly Extremities: No clubbing, No cyanosis, No edema, Normal pulses, No tenderness/swelling Skin: No rashes, No breakdown, No significant lesion Neuro: Normal gait, Normal speech, Strength at 5/5 X4 ext, Normal tone, Sensation intact, Cranial nerves 3-12 NL, Reflexes 2+ Psych/Mental Status: Mental status NL, Mood NL laboratory and microbiology Laboratory Tests 03/10/25 05:37 Test 03/10/25 05:37 Range/Units Serum Glucose 76 74-106 mg/dL Microbiology Date/Time Source Procedure Growth Status 03/10/25 10:20 Pleural Fluid Received Problem List/Assessment/Plan Problem List/Assessment/Plan #Acute hypoxic respiratory failure likely due to right-sided pleural effusion and pericardial effusion #Right-sided pleural effusion likely due to malignancy #Acute pericardial effusion likely due to malignancy #Possible acute multifocal pneumonia #Acute urinary tract infection #History of breast cancer diagnosed in 2017, currently on chemotherapy ([facility]) Plan -initial chest x-ray showed cardiomegaly with congestion/possible scarring tissue -CT angio of the chest showed no evidence of pulmonary embolism but did show bilateral pleural effusion worse in the right side. There was also diffuse bilateral interstitial infiltrates and peribronchial thickening. There was also moderate to large pericardial effusion. -breathing pattern improved after thoracentesis -continue azithromycin and ceftriaxone for possible bilateral interstitial infiltrates. This imaging findings could also be due to scarring tissue. - furosemide 40 mg IV daily -strict in's and out -thoracentesis: 400 cc drained -pending official echocardiogram report Goals of care discussed with the patient at bedside for >35min, FULL CODE Plan discussed with Dr. Montero 03/10/2025: patient had right pleural effusion, thoracentesis was done, 400 cc drained, pericardial effusion is mild in the ECHO, patient is hemodynamically stable, no need of drainage for now, continue IV treatment for possible pneumonia, case discussed with the patient, also possible lung and pleural mets, prognosis poor Plan discussed with: Patient, Other My Orders My Orders Orders - ROSE AGUILAR Procedure Category Date Status Time Electrocardigram EKG 03/10/25 Resulted 07:01 Respiratory Culture VASU 03/10/25 Uncollected W/ Gs 12:23 Communication Order ORDERS 03/10/25 Transmitted 12:23 Date of Service: Mar 10, 2025 Billing Provider: KYLEIGH MONTERO MD Common Visit Codes: [id number] INP/OBS CARE(HIGH) ROSE AGUILAR RESIDENT Mar 10, 2025 13:30 KYLEIGH OMNTERO MD Mar 10, 2025 20:15
--- NOTE | 2025-03-10 20:26 | DVHSR ---
APPROVED REPORT EXAM: Two-dimensional and M-mode echocardiogram with Doppler and color Doppler. Blood Pressure: 121/79 mmHg INDICATION Pericardial Effusion RISK FACTORS Height: 4'11", Weight: 165 DIMENSIONS LVDd4.7 (3.8-5.7cm)LA (2D)2.9 (1.9-4.0cm)Aortic Root2.9 (2.0-3.7cm) LVDs2.4 (2.5-4.0cm)LA (MM) (1.9-4.0cm)Aortic Cusp Exc1.7 (1.5-2.0cm) EF (%) 79.0 (55-70%)Rt. Atrium3.1 (1.9-4.0cm)Asc. Aorta2.9 cm IVSd1.0 (0.7-1.1cm)RV (D)3.1 (1.8-2.4cm) PWd0.9 (0.7-1.1cm) Mitral Valve MitralMitral Stenosis E wave0.63m/sMV Mean GR.mmHg A wave0.65m/sMV Peak GR.mmHg E/A ratio1.02D MVAcm2 DECEL [id number] 1/2 Timems Aortic Valve Aortic ValveAortic Stenosis V11.30m/Leyla Mean GR.4mmHg V21.42m/Leyla Peak GR.8mmHg LVOT Diameter1.9 (1.8-2.4cm)Doppler AVA2.59cm2 Pulmonic Valve V20.96m/s Tricuspid Valve TR Velocity2.12m/s [id number] Other Information Quality : Technically LimitedRhythm : Technically limited study due to body habitus. Conclusion LV EF IS 75% MILD LVH AND MILD LV DIASTOLIC DYSFUNCTION MILD ANTERIOR PERICARDIAL EFFUSION,ABOUT 05 CM MODERATE DEGREE PERICARDIAL EFFUSION ON ANTERIOR LATERAL SIDE OF LV,ABOUT 1.5 CM NO EVIDENCE OF PERICARDIAL EFFUSION NO LARGE PERICARDIAL EFFUSION NORMAL VALVES NORMAL RV FUNCTION
[2025-03-11] VITALS (8 sets, daily range): BP systolic 102–123; BP diastolic 65–79; PULSE 65–107; RESP 17–20; TEMP 96–97.7; O2SAT 90–94
--- NOTE | 2025-03-11 | DVHINCON2 ---
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 Patient reports that yesterday she was being seen at an imaging center for a CT scan and was unable to lie flat. Personnel at the imaging facility noticed that the patient had increased work of breathing and that her lips were becoming discolored. Patient was prompted to come to the emergency room for further evaluation. CT imaging during this admission found a moderate to large pericardial effusion, bilateral pleural effusions, and cardiomegaly. Cardiology has been consulted at this point to further evaluate the moderate to large pericardial effusion. No twelve lead electrocardiogram was performed in the emergency room or during this admission. No echocardiogram done in the emergency room. The patient denies any chest pain or palpitations. The patient reports that she was initially diagnosed with stage III (HER 2+) breast cancer in 2017 in which she underwent chemotherapy and was in remission in 2019. She reports her cancer came back in 2021 at stage IV and has been undergoing chemotherapy treatment at [facility] since then. Chest x-ray shows cardiomegaly with CHF. Past Medical History Past medical history reviewed. No other significant than mentioned above. Past Surgical History Breast lumpectomy in 2022 Lymph node removal x 7 in 2022 Family History: Arthritis G8 MOTHER Cardiovascular disease G8 MOTHER Diabetes mellitus G8 FATHER G8 BROTHER Hypertension G8 MOTHER Allergies: Coded Allergies: Cephalexin (Verified Allergy, Unknown, 03/09/25) Latex (Verified Allergy, Unknown, 03/09/25) Uncoded Allergies: HEAT (Allergy, Unknown, 03/09/25) SUNSHINE (Allergy, Unknown, 03/09/25) Home Meds Active Scripts Methylprednisolone (Medrol Dosepak) 4 Mg Nilesh, 4 MG PO UD, #21 TAB UAD Prov:SUZI RASHID 10/16/23 Azithromycin (ZITHROMAX TABLET) 250 Mg Tb, 250 MG PO DAILY, #6 TAB Prov:SUZI RASHID 10/16/23 Ascorbic Acid (VITAMIN C TABLET) 500 Mg Tb, 1 TAB PO BID, #60 TAB Prov:VANESSA BOUDREAUX MD 04/25/22 Methylprednisolone (Medrol Dosepak) 4 Mg Nilesh, 4 MG PO UD, #21 TAB UAD Prov:VANESSA BOUDREAUX MD 04/25/22 Azithromycin (Zithromax) 1 Gm Pow, 1 PACK PO ONCE, #1 PACK Prov:VANESSA BOUDREAUX MD 04/25/22 Current Medications Current Medications Medications (Trade) Dose Ordered Sig/Mitali Route PRN Reason Start Time Stop Time Status Last Admin Acetaminophen (Tylenol Tablet) 650 mg Q6HP PRN PO PAIN SCALE 1-3 OR TEMP>100.4 03/09/25 22:15 Enoxaparin Sodium (Lovenox) 40 mg DAILY SC 03/10/25 10:00 03/10/25 10:54 Azithromycin (Zithromax Tablet) 250 mg DAILY PO 03/10/25 10:00 Ceftriaxone Sodium 50 ml @ 100 mls/hr DAILY IV 03/10/25 10:00 03/10/25 10:31 Furosemide (Lasix Injection) 40 mg DAILY IV 03/10/25 10:00 03/10/25 10:30 Review of Systems Constitutional: No symptom reported Ears, Nose, & Throat: No symptom reported Eyes: No symptom reported Neurological: No symptoms reported Pulmonary/Respiratory: Shortness of breath Cardiovascular: No symptom reported Gastrointestinal: No symptom reported Genitourinary: No symptom reported Musculoskeletal: No symptom reported Skin: No symptom reported Psychiatric: No symptom reported Endocrine: No symptom reported Hematologic/Lymphatic: No symptom reported Vital Signs Vital Signs Date Time Temp Pulse Resp B/P (MAP) Pulse Ox O2 Delivery O2 Flow Rate FiO2 03/10/25 16:46 97.9 99 17 124/82 (96) 91 97.9 03/10/25 08:00 Nasal Cannula* 4 36 Physical Exam GENERAL: Alert and oriented x 3. No acute distress. Obese. EYES: PERRL, EOMI. Anicteric. HENT: Moist mucous membranes. LUNGS: Diminished breath sounds. CARDIOVASCULAR: Regular rate and rhythm. ABDOMEN: Soft, nontender and nondistended. EXTREMITIES: No edema. NEUROLOGIC: No focal neurological deficits. SKIN: Warm, dry. Labs/Diagnostic Data Labs Test 03/10/25 10:20 03/10/25 05:37 03/09/25 14:03 03/09/25 13:57 Range/Units Body Fluid Source Pleural fluid Body Fluid pH 8.0 Body Fluid WBC (Manual) 1307 H 0-200 CUMM Body Fluid RBC (Manual) 1886 0-2000 CUMM Body Fluid Mononuclear Cells 95 % Body Fluid Polymorphonuclear Cells 5 0-25 % White Blood Count 6.0 4.4-10.8 10^3/uL Red Blood Count 4.42 4.0-5.20 10^6/uL Hemoglobin 13.0 12.2-16.2 g/dL Hematocrit 39.5 36.0-46.0 % Mean Corpuscular Volume 89.3 80.0-100.0 fL Mean Corpuscular Hemoglobin 29.4 28.0-32.0 pg Mean Corpuscular Hemoglobin Concent 32.9 32.0-36.0 g/dL Red Cell Distribution Width 17.5 H 11.8-14.3 % Platelet Count 195 140-450 10^3/uL Mean Platelet Volume 8.7 6.9-10.8 fL Neutrophils (%) (Auto) 86.2 H 37.0-80.0 % Lymphocytes (%) (Auto) 3.1 L 10.0-50.0 % Monocytes (%) (Auto) 9.4 0.0-12.0 % Eosinophils (%) (Auto) 0.9 0.0-7.0 % Basophils (%) (Auto) 0.4 0.0-2.0 % Neutrophils # (Auto) 5.1 1.6-8.6 10 ^3/uL Lymphocytes # (Auto) 0.2 L 0.4-5.4 10 ^3/uL Monocytes # (Auto) 0.6 0-1.3 10 ^3/uL Eosinophils # (Auto) 0.1 0-0.8 10 ^3/uL Basophils # (Auto) 0 0-0.2 10 ^3/uL Nucleated Red Blood Cells 0.2 % Sodium Level 142 136-145 mmol/L Potassium Level 3.6 3.5-5.1 mmol/L Chloride Level 108 H 98-107 mmol/L Carbon Dioxide Level 26 20-31 mmol/L Anion Gap 8 5-15 Blood Urea Nitrogen 7 L 9-23 mg/dL Creatinine 0.51 L 0.550-1.02 mg/dL Glomerular Filtration Rate Calc 110 >90 mL/min BUN/Creatinine Ratio 13.7 10.0-20.0 Serum Glucose 76 74-106 mg/dL Calcium Level 9.9 8.7-10.4 mg/dL Urine Color Light-yellow Yellow Urine Clarity Clear Clear Urine pH 6.0 5.0-9.0 Urine Specific [place] > 1.050 H 1.001-1.035 Urine Protein Trace H Negative Urine Ketones Negative Negative Urine Blood Trace H Negative /uL Urine Nitrite Negative Negative Urine Bilirubin Negative Negative Urine Urobilinogen Normal Negative mg/dL Urine Leukocyte Esterase 2+ Negative /uL Urine RBC 5 0 - 4 /hpf Urine Microscopic WBC 29 H 0-5 /HPF Urine Squamous Epithelial Cells Few <5 /hpf Urine Bacteria Few H None Seen /hpf Urine Glucose Normal Normal mg/dL Urine Opiates Screen Neg NEGATIVE Urine Fentanyl Screen Neg NEGATIVE Urine Barbiturates Screen Neg NEGATIVE Urine Phencyclidine Screen Neg NEGATIVE Urine Amphetamines Screen Neg NEGATIVE Urine Benzodiazepines Screen Neg NEGATIVE Urine Cocaine Screen Neg NEGATIVE Urine Cannabinoids Screen Neg NEGATIVE D-Dimer, Quantitative 1.61 H 0.0-0.49 mg/L FEU Hemoglobin A1c 5.2 <5.7 % A1C Troponin I High Sensitivity 11 </=34 ng/L B-Type Natriuretic Peptide 10.15 0-100 pg/mL Triglycerides Level 64 < 150 mg/dL Cholesterol Level 135 < 200 mg/dL LDL Cholesterol 76 < 100 mg/dL HDL Cholesterol 50 40-59 mg/dL Microbiology Date/Time Source Procedure Growth Status 03/10/25 10:20 Pleural Fluid Received Assessment Pericardial effusion, rule out cardiac tamponade. Acute hypoxic respiratory failure. Right-sided pleural effusion. History of stage IV breast cancer (HER 2+). Obesity. Plan/Recommendation I agree with your ongoing assessment and care of plan. Patient has been seen by Patricia Gorman NP on my behalf, her and I discussed the plan with the patient. A chest CT revealed a moderate to large pericardial effusion. We will proceed with obtaining a STAT echocardiogram to evaluate pericardial effusion. Clinically, the patient does not present with any signs of tamponade at the time of assessment. Continue to closely monitor vital signs and hemodynamic stability. Upgrade the patient to telemetry monitoring. Additional plan as per the hospital course. Plan discussed with: Patient NYHA Physical activity limitations: NA Date of Service: Mar 11, 2025 Billing Provider: DWAYNE LINCOLN MD Cardiology Common Codes: [id number] INP/OBS CARE (High) Cardiology Consultation Codes: [id number] CONSULT <45MIN DWAYNE LINCOLN MD Mar 10, 2025 20:42
[2025-03-11 13:07] LABS: Protein, Body Fluid 2.8 g/dL (.)
--- NOTE | 2025-03-11 14:20 | DVHPN2 ---
Reviewed: Care Plan, H&P, Labs, Medications, Previous Orders, Radiology Changes from previous H/P or p: No Changes Eyes: No Pain, No Vision change, No Conjunctivae inflammation, No Eyelid inflammation, No Other, No Redness ENT: No Ear pain, No Ear discharge, No Nose pain, No Nose discharge, No Nose congestion, No Mouth pain, No Mouth swelling, No Throat pain, No Throat swelling, No Other Cardiovascular: No Chest Pain, No Palpitations; Orthopnea; No Paroxysmal Noc. Dyspnea, No Edema, No Lt Headedness, No Other Respiratory: No Cough, No Dry; Shortness of breath, SOB with excertion; No Wheezing, No Hemoptysis, No Pleuritic Pain, No Sputum, No Other Gastrointestinal: No Nausea, No Vomiting, No Abdominal Pain, No Diarrhea, No Constipation, No Melena, No Hematochezia, No Other Genitourinary: No Dysuria, No Frequency, No Incontinence, No Hematuria, No Retention, No Other Musculoskeletal: No other, No neck pain, No shoulder pain, No arm pain, No back pain, No hand pain, No leg pain, No foot pain Skin: No Rash, No Lesions, No Jaundice, No Bruising, No Other Objective Vitals Vital Signs Date Time Temp Pulse Resp B/P (MAP) Pulse Ox O2 Delivery O2 Flow Rate FiO2 03/11/25 12:48 96.6 101 18 117/79 (92) 94 96.6 03/10/25 20:00 Nasal Cannula* 4 36 Intake/Output Intake and Output 03/11/25 07:00 Intake Total 250 ml Output Total 1200 ml Balance -950 ml Intake Oral 200 ml IV Total 50 ml Output Urine Total 1200 ml # Voids 1 # Bowel Movements 2 Medications Current Medications Medications Dose Ordered Sig/Mitali Route Start Time Stop Time Status Last Admin Dose Admin Acetaminophen 650 mg Q6HP PRN PO 03/09/25 22:15 Enoxaparin Sodium 40 mg DAILY SC 03/10/25 10:00 03/11/25 09:53 40 MG Azithromycin 250 mg DAILY PO 03/10/25 10:00 03/11/25 09:52 250 MG Ceftriaxone Sodium 50 ml @ 100 mls/hr DAILY IV 03/10/25 10:00 03/11/25 09:52 100 MLS/HR Furosemide 40 mg DAILY IV 03/10/25 10:00 03/11/25 09:53 40 MG Laboratory Results Laboratory Tests 03/10/25 05:37 Urinalysis Test 03/09/25 14:03 Urine Color Light-yellow (Yellow) Urine Clarity Clear (Clear) Urine pH 6.0 (5.0-9.0) Urine Specific [place] > 1.050 (1.001-1.035) Urine Protein Trace (Negative) H Urine Ketones Negative (Negative) Urine Blood Trace /uL (Negative) H Urine Nitrite Negative (Negative) Urine Bilirubin Negative (Negative) Urine Urobilinogen Normal mg/dL (Negative) Urine Leukocyte Esterase 2+ /uL (Negative) Urine RBC 5 /hpf (0 - 4) Urine Microscopic WBC 29 /HPF (0-5) H Urine Squamous Epithelial Cells Few /hpf (<5) Urine Bacteria Few /hpf (None Seen) H Urine Glucose Normal mg/dL (Normal) Microbiology Microbiology Date/Time Source Procedure Growth Status 03/10/25 10:20 Pleural Fluid Gram Stain Pending Resulted 03/10/25 10:20 Pleural Fluid Body Fluid Culture - Preliminary Resulted 03/09/25 14:03 Voided Urine Urine Culture - Preliminary Resulted Labs and/or images reviewed: Labs reviewed by me, Image(s) reviewed by me Assessment/Plan Assessment/Plan Covering for resident physician #Acute hypoxic respiratory failure likely due to right-sided pleural effusion and pericardial effusion: Cardiology consult appreciated #Right-sided pleural effusion likely due to malignancy #Acute pericardial effusion likely due to malignancy #Possible acute multifocal pneumonia: Rocephin azithromycin #Acute urinary tract infection #History of breast cancer diagnosed in 2017, currently on chemotherapy ([facility]) Plan discussed with: Patient Date of Service: Mar 11, 2025 Billing Provider: ZACH GARCIA MD Common Visit Codes: [id number] INP/OBS CARE(HIGH) ZACH GARCIA MD Mar 11, 2025 14:20
[2025-03-12] VITALS (12 sets, daily range): BP systolic 113–137; BP diastolic 70–87; PULSE 81–104; RESP 15–20; TEMP 97.6–98.2; O2SAT 90–97
--- NOTE | 2025-03-12 00:24 | DVHPN2 ---
Progress Note - Dictate Date Seen: Mar 11, 2025 Has the PT tested + for MRSA If YES, has PT been informed?: No Medical Necessity Reason Pt with a Central, PICC or Fol: No Subjective Patient was seen and evaluated in follow up. Patient is complaining of generalized pain. Echocardiogram shows an EF of 75%, mild anterior pericardial effusion, moderate degree pericardial effusion n anterior lateral side of LV. Prelim urine culture growing approximately 60,000 CFU/mL Mixed Gram Positive Gloria >3 [place] Types. Telemetry reviewed. vital signs Vital Sign Date Time Temp Pulse Resp B/P (MAP) Pulse Ox O2 Delivery O2 Flow Rate FiO2 03/11/25 16:56 96.8 91 18 120/75 (90) 92 96.8 03/11/25 08:00 Nasal Cannula* 4 36 Total Intake and Output 03/10/25 03/10/25 03/11/25 15:00 23:00 07:00 Intake Total 50 ml 0 ml 200 ml Output Total 1200 ml Balance 50 ml -1200 ml 200 ml medications Current Medications Medications Dose Ordered Sig/Mitali Route Start Time Stop Time Status Last Admin Dose Admin Acetaminophen 650 mg Q6HP PRN PO 03/09/25 22:15 Enoxaparin Sodium 40 mg DAILY SC 03/10/25 10:00 03/11/25 09:53 40 MG Azithromycin 250 mg DAILY PO 03/10/25 10:00 03/11/25 09:52 250 MG Ceftriaxone Sodium 50 ml @ 100 mls/hr DAILY IV 03/10/25 10:00 03/11/25 09:52 100 MLS/HR Furosemide 40 mg DAILY IV 03/10/25 10:00 03/11/25 09:53 40 MG objective GENERAL: Alert and oriented x 3. No acute distress. Obese. EYES: PERRL, EOMI. Anicteric. HENT: Moist mucous membranes. LUNGS: Diminished breath sounds. CARDIOVASCULAR: Regular rate and rhythm. ABDOMEN: Soft, nontender and nondistended. EXTREMITIES: No edema. NEUROLOGIC: No focal neurological deficits. SKIN: Warm, dry. laboratory and microbiology Laboratory Tests 03/10/25 05:37 Test 03/10/25 05:37 Range/Units Serum Glucose 76 74-106 mg/dL Problem List Pericardial effusion, rule out cardiac tamponade. Acute hypoxic respiratory failure. Right-sided pleural effusion. History of stage IV breast cancer (HER 2+). Obesity. Assessment/Plan Continued all current supportive medical care. IV antibiotics as ordered. DVT prophylactics. Diuretics with Lasix. Additional plan as per the hospital course. Plan discussed with: Patient DWAYNE LINCOLN MD Mar 11, 2025 21:36
[2025-03-12 08:58] LABS: Base Excess 4.8 mmol/L (-2.0-3.0)
--- NOTE | 2025-03-12 10:40 | DVH ---
CLINICAL INFORMATION: 54 years old, Female; THORACENTESIS FOLLOW UP. TECHNIQUE: Single AP portable chest radiograph was obtained. COMPARISON: XY CHEST PORTABLE on DOS: 03/10/25, XY CHEST PORTABLE on DOS: 03/09/25, CHEST PORTABLE on DOS : 04/25/22 FINDINGS: No pneumothorax visualized. Small residual right pleural effusion with overlying atelectasis and/or c onsolidation visualized status post thoracentesis. Unchanged small left pleural effusion with overlyi ng atelectasis and consolidation. No other significant interval change. IMPRESSION: 1. No pneumothorax visualized status post thoracentesis. 2. Additional findings as described above.
--- NOTE | 2025-03-12 11:50 | DVHPNRES ---
Progress Note Date Seen: Mar 12, 2025 Resident Creating Document: ROSE AGUILAR RESIDENT Has the PT tested + for MRSA If YES, has PT been informed?: No Medical Necessity Reason Pt with a Central, PICC or Fol: No Subjective Review of Systems This is a 54-year-old female with past medical history of stage IV breast cancer HER2 positive (currently on chemotherapy in [facility]). Patient presented to the ED with chief complaint of shortness of breaths. The patient states that his shortness of breaths started one week and a half ago and states that is worse in supine position or laying down and improves with the patient is on sitting position or leaning forward. Patient states that she does not use oxygen at home. The patient denies chest pain, fever/chills, abdominal tenderness, lower extremity swelling or pain or any other associated symptoms at this time. Upon admission, patient was requiring 4 L of oxygen through nasal cannula. Initial chest x-ray was showing cardiomegaly with mild congestion or scarring tissue. A CT angio of the chest was performed showing no evidence of pulmonary embolism but was showing bilateral pleural effusion that was worse in the right side with diffuse bilateral interstitial infiltrates and peribronchial thickening. There was also moderate to large pericardial effusion. We will order a chest ultrasound to quantify fluid in the right lung base determine the need of right-sided thoracentesis. We will consult interventional radiologist for possible right-sided thoracentesis and pericardiocentesis. We will admit the patient for further assessment and management. Past medical history: Stage IV breast cancer HER2 positive. The patient states that was initially diagnosed in 2006 with stage III breast cancer, at that time she received six rounds of chemotherapy, surgery and radiation for one month. She was in remission until June of 2022 where she was diagnosed again with stage IV breast cancer and has been on chemotherapy since then. Two thousand twenty-three apparently patient had metastasis and received brain radiation. Patient still on chemotherapy at this time which we will be prolonged lung live. No additional past medical history per patient. Past surgical history: Left-sided lumpectomy with removal of seven lymph nodes. Social history: Denies smoking, alcohol or drug intake. lives with her family Past Surgical History: Other (Left lumpectomy and removal of seven lymph nodes) Family History: None Smoke: No ALCOHOL: none Drugs: None Lives: with Family Domestic Violence: Neg 03/10/2025: patient had right pleural effusion, thoracentesis was done, 400 cc drained, pericardial effusion is mild in the ECHO, patient is hemodynamically stable, no need of drainage for now, continue IV treatment for possible pneumonia, case discussed with the patient, also possible lung and pleural mets, prognosis poor 03/12/2025: patient still requires O2: ABG po2 47, order for home o2 placed, new chest US rule out pleural effusion, breathing treatments and lasix were adjusted, to try to downgrade o2 requirements to 2-3 LT Objective vital signs Vital Sign Date Time Temp Pulse Resp B/P (MAP) Pulse Ox O2 Delivery O2 Flow Rate FiO2 03/12/25 10:16 137/80 03/12/25 09:00 97.6 102 18 90 97.6 03/12/25 08:00 Nasal Cannula* 4 36 Total Intake and Output 03/11/25 03/11/25 03/12/25 15:00 23:00 07:00 Intake Total 50 ml 1320 ml 750 ml Output Total 1550 ml 200 ml Balance 50 ml -230 ml 550 ml medications Current Medications Medications Dose Ordered Sig/Mitali Route Start Time Stop Time Status Last Admin Dose Admin Acetaminophen 650 mg Q6HP PRN PO 03/09/25 22:15 Enoxaparin Sodium 40 mg DAILY SC 03/10/25 10:00 03/12/25 10:17 40 MG Azithromycin 250 mg DAILY PO 03/10/25 10:00 03/12/25 10:16 250 MG Ceftriaxone Sodium 50 ml @ 100 mls/hr DAILY IV 03/10/25 10:00 03/12/25 10:16 100 MLS/HR Furosemide 40 mg DAILY IV 03/10/25 10:00 03/12/25 10:16 40 MG Examination General Appearance: Alert, Oriented X3, Cooperative, mild distress HEENT: Atraumatic, PERRLA, EOMI, Mucous membr. moist/pink Respiratory: Patient is currently requiring 4 L of oxygen through nasal cannula. There are bilateral lung crackles on both cast[place] Cardiovascular: Regular rate, Normal S1, Normal S2, No murmurs Abdominal: Normal bowel sounds, Soft, No tenderness, No hepatospenomegaly Extremities: No clubbing, No cyanosis, No edema, Normal pulses, No tenderness/swelling Skin: No rashes, No breakdown, No significant lesion Neuro: Normal gait, Normal speech, Strength at 5/5 X4 ext, Normal tone, Sensation intact, Cranial nerves 3-12 NL, Reflexes 2+ Psych/Mental Status: Mental status NL, Mood NL laboratory and microbiology Laboratory Tests 03/10/25 05:37 Test 03/10/25 05:37 Range/Units Serum Glucose 76 74-106 mg/dL Microbiology Date/Time Source Procedure Growth Status 03/10/25 10:20 Pleural Fluid Gram Stain - Final Resulted 03/10/25 10:20 Pleural Fluid Body Fluid Culture - Preliminary Resulted 03/09/25 14:03 Voided Urine Urine Culture - Final Complete Problem List/Assessment/Plan Problem List/Assessment/Plan #Acute hypoxic respiratory failure likely due to right-sided pleural effusion and pericardial effusion #Right-sided pleural effusion likely due to malignancy #Acute pericardial effusion likely due to malignancy #Possible acute multifocal pneumonia #Acute urinary tract infection #History of breast cancer diagnosed in 2016, currently on chemotherapy ([facility]) Plan -initial chest x-ray showed cardiomegaly with congestion/possible scarring tissue -CT angio of the chest showed no evidence of pulmonary embolism but did show bilateral pleural effusion worse in the right side. There was also diffuse bilateral interstitial infiltrates and peribronchial thickening. There was also moderate to large pericardial effusion. -breathing pattern improved after thoracentesis -continue azithromycin and ceftriaxone for possible bilateral interstitial infiltrates. This imaging findings could also be due to scarring tissue. - furosemide 40 mg IV BID -breathing treatments q8h -order for home 2 placed -strict in's and out -thoracentesis: 400 cc drained - echocardiogram report: MILD ANTERIOR PERICARDIAL EFFUSION,ABOUT 05 CM MODERATE DEGREE PERICARDIAL EFFUSION ON ANTERIOR LATERAL SIDE OF LV,ABOUT 1.5 CM -Cardiology still on board for f/u, no need of drainage for now Goals of care discussed with the patient at bedside for >35min, FULL CODE Plan discussed with Dr. Rice Plan discussed with: Patient, Other My Orders My Orders Orders - ROSE AGUILAR RESIDENT Procedure Category Date Status Time Chest Ultrasound US 03/12/25 Taken 08:21 Abg W/ Co-Ox RT 03/12/25 Logged 08:21 * Entry Level Assistant Manager CONS 03/12/25 Transmitted Consult *Consult CONS 03/12/25 Transmitted / 11:39 Date of Service: Mar 12, 2025 Billing Provider: WALLY RICE MD Common Visit Codes: [id number] INP/OBS CARE(HIGH) ROSE AGUILAR RESIDENT Mar 12, 2025 11:50 WALLY RICE MD Mar 13, 2025 22:36
--- NOTE | 2025-03-12 11:55 | DVH ---
Bilateral Chest Sonogram Date: 03/12/2025 09:05 AM Clinical history: left side pleural efussion Technique: Limited ultrasound of the right and left chest were obtained. Finding/Impression: There is a small right pleural effusion. No left pleural effusion.
[2025-03-12] MEDS: ALBUTEROL SULF 2.5 MG/0.5ML(0.5%) NEB SOLN NEB SCH (14:22)
[2025-03-12] MEDS: FUROSEMIDE 40 MG/4 ML VIAL IV SCH (15:25)
[2025-03-12] MEDS: IPRATROPIUM BROM 0.5 MG/2.5ML INH SOL NEB PRN (22:34)
--- NOTE | 2025-03-12 23:26 | DVHPN2 ---
Progress Note - Dictate Date Seen: Mar 12, 2025 Has the PT tested + for MRSA If YES, has PT been informed?: No Medical Necessity Reason Pt with a Central, PICC or Fol: No Subjective Patient was seen and evaluated in follow up. No overnight events. Patient is complaining of generalized pain. Chest x-ray shows no pneumothorax visualized status post thoracentesis. Chest US demonstrated a small right pleural effusion. No left pleural effusion. Telemetry reviewed. vital signs Vital Sign Date Time Temp Pulse Resp B/P (MAP) Pulse Ox O2 Delivery O2 Flow Rate FiO2 03/12/25 10:16 137/80 03/12/25 09:00 97.6 102 18 90 97.6 03/12/25 08:00 Nasal Cannula* 4 36 Total Intake and Output 03/11/25 03/11/25 03/12/25 15:00 23:00 07:00 Intake Total 50 ml 1320 ml 750 ml Output Total 1550 ml 200 ml Balance 50 ml -230 ml 550 ml medications Current Medications Medications Dose Ordered Sig/Mitali Route Start Time Stop Time Status Last Admin Dose Admin Acetaminophen 650 mg Q6HP PRN PO 03/09/25 22:15 Enoxaparin Sodium 40 mg DAILY SC 03/10/25 10:00 03/12/25 10:17 40 MG Azithromycin 250 mg DAILY PO 03/10/25 10:00 03/12/25 10:16 250 MG Ceftriaxone Sodium 50 ml @ 100 mls/hr DAILY IV 03/10/25 10:00 03/12/25 10:16 100 MLS/HR Furosemide 40 mg BID IV 03/12/25 15:00 Albuterol 2.5 mg Q8HR NEB 03/12/25 14:00 Ipratropium [place] 0.5 mg Q8HPRN PRN NEB 03/12/25 14:00 objective GENERAL: Alert and oriented x 3. No acute distress. Obese. EYES: PERRL, EOMI. Anicteric. HENT: Moist mucous membranes. LUNGS: Diminished breath sounds. CARDIOVASCULAR: Regular rate and rhythm. ABDOMEN: Soft, nontender and nondistended. EXTREMITIES: No edema. NEUROLOGIC: No focal neurological deficits. SKIN: Warm, dry. laboratory and microbiology Laboratory Tests 03/10/25 05:37 Test 03/10/25 05:37 Range/Units Serum Glucose 76 74-106 mg/dL Problem List Pericardial effusion, rule out cardiac tamponade. Acute hypoxic respiratory failure. Right-sided pleural effusion. History of stage IV breast cancer (HER 2+). Obesity. Assessment/Plan Continued all current supportive medical care. IV antibiotics as ordered. DVT prophylactics. Diuretics with Lasix. Additional plan as per the hospital course. Plan discussed with: Patient DWAYNE LINCOLN MD Mar 12, 2025 13:10
[2025-03-13] VITALS (11 sets, daily range): BP systolic 108–121; BP diastolic 50–78; PULSE 91–114; RESP 17–18; TEMP 36.9; O2SAT 91–94
[2025-03-13 07:45] LABS: Basophils # (auto) 0 10 ^3/uL (0-0.2); Basophils % (auto) 0.5 % (0.0-2.0); Eosinophils # (auto) 0.1 10 ^3/uL (0-0.8); Eosinophils % (auto) 1.6 % (0.0-7.0); Hematocrit 43.2 % (36.0-46.0); Hemoglobin 14.5 g/dL (12.2-16.2); Lymphocytes # (auto) 0.3 10 ^3/uL (0.4-5.4); Lymphocytes % (auto) 6.2 % (10.0-50.0); Mean Corpuscular Hemoglobin 29.7 pg (28.0-32.0); Mean Corpuscular Hgb Conc. 33.7 g/dL (32.0-36.0); Mean Corpuscular Volume 88.2 fL (80.0-100.0); Monocytes # (auto) 0.7 10 ^3/uL (0-1.3); Monocytes % (auto) 14.2 % (0.0-12.0); Neutrophils # (auto) 3.9 10 ^3/uL (1.6-8.6); Neutrophils % (auto) 77.5 % (37.0-80.0); Nucleated Red Blood Cells % 0.3 %; Platelet Count (auto) 254 10^3/uL (140-450); Red Blood Cells 4.89 10^6/uL (4.0-5.20)
[2025-03-13 08:09] LABS: Anion Gap 11 (5-15); BUN/Creatinine Ratio 15.1 (10.0-20.0); Blood Urea Nitrogen 11 mg/dL (9-23); Calcium 9.9 mg/dL (8.7-10.4); Carbon Dioxide 30 mmol/L (20-31); Glucose 78 mg/dL (74-106); Sodium 138 mmol/L (136-145); Total Protein 6.9 g/dL (5.7-8.2)
[2025-03-13 08:10] LABS: Albumin 4.2 g/dL (3.2-4.8); Bilirubin, Total 0.8 mg/dL (0.2-1.0)
[2025-03-13 08:14] LABS: Alanine Aminotransferase 48 U/L (7-40); Alkaline Phosphatase 267 U/L (46-116); Aspartate Aminotransferase 78 U/L (13-40); Chloride 97 mmol/L (98-107)
[2025-03-13] MEDS: MAGIC MOUTHWASH 55 ML SUSP MT SCH (11:18)
[2025-03-13] MEDS: POTASSIUM CHLORIDE 40 MEQ, LIDOCAINE 1% (LOCAL ANESTH.) 4 ML in SODIUM CHL 0.9% 250 ML IV ONE (11:19)
--- NOTE | 2025-03-13 12:32 | DVHPNRES ---
Progress Note Has the PT tested + for MRSA If YES, has PT been informed?: No Medical Necessity Reason Pt with a Central, PICC or Fol: No Objective vital signs Vital Sign Date Time Temp Pulse Resp B/P (MAP) Pulse Ox O2 Delivery O2 Flow Rate FiO2 03/13/25 10:00 92 Nasal Cannula 4.0 03/13/25 10:00 36 03/13/25 10:00 121/78 03/13/25 09:00 97.5 109 18 97.5 Total Intake and Output 03/12/25 03/12/25 03/13/25 15:00 23:00 07:00 Intake Total 50 ml 1590 ml 450 ml Output Total 1700 ml 850 ml Balance 50 ml -110 ml -400 ml medications Current Medications Medications Dose Ordered Sig/Mitali Route Start Time Stop Time Status Last Admin Dose Admin Acetaminophen 650 mg Q6HP PRN PO 03/09/25 22:15 Enoxaparin Sodium 40 mg DAILY SC 03/10/25 10:00 03/13/25 10:37 40 MG Azithromycin 250 mg DAILY PO 03/10/25 10:00 03/13/25 10:37 250 MG Ceftriaxone Sodium 50 ml @ 100 mls/hr DAILY IV 03/10/25 10:00 03/13/25 10:36 100 MLS/HR Furosemide 40 mg BID IV 03/12/25 15:00 03/13/25 10:00 40 MG Albuterol 2.5 mg Q8HR NEB 03/12/25 14:00 03/13/25 05:46 2.5 MG Ipratropium [place] 0.5 mg Q8HPRN PRN NEB 03/12/25 14:00 03/12/25 22:34 0.5 MG Al Hydrox/Mg Hydrox/Simethicone 5 ml QID MT 03/13/25 08:15 03/13/25 11:18 5 ML laboratory and microbiology Laboratory Tests 03/13/25 05:55 Test 03/13/25 05:55 Range/Units Serum Glucose 78 74-106 mg/dL Microbiology Date/Time Source Procedure Growth Status 03/10/25 10:20 Pleural Fluid Gram Stain - Final Resulted 03/10/25 10:20 Pleural Fluid Body Fluid Culture - Preliminary Resulted 03/09/25 14:03 Voided Urine Urine Culture - Final Complete Problem List/Assessment/Plan Problem List/Assessment/Plan #Acute hypoxic respiratory failure likely due to right-sided pleural effusion and pericardial effusion #Right-sided pleural effusion likely due to malignancy #Acute pericardial effusion likely due to malignancy #Possible acute multifocal pneumonia #Acute urinary tract infection #History of breast cancer diagnosed in 2017, currently on chemotherapy ([facility]) Plan -initial chest x-ray showed cardiomegaly with congestion/possible scarring tissue -CT angio of the chest showed no evidence of pulmonary embolism but did show bilateral pleural effusion worse in the right side. There was also diffuse bilateral interstitial infiltrates and peribronchial thickening. There was also moderate to large pericardial effusion. -breathing pattern improved after thoracentesis -continue azithromycin and ceftriaxone for possible bilateral interstitial infiltrates. This imaging findings could also be due to scarring tissue. - furosemide 40 mg IV BID -breathing treatments q8h -order for home 2 placed -strict in's and out -thoracentesis: 400 cc drained - echocardiogram report: MILD ANTERIOR PERICARDIAL EFFUSION,ABOUT 05 CM MODERATE DEGREE PERICARDIAL EFFUSION ON ANTERIOR LATERAL SIDE OF LV,ABOUT 1.5 CM -Cardiology still on board for f/u, no need of drainage for now Goals of care discussed with the patient at bedside for >35min, FULL CODE Plan discussed with Dr. Rice My Orders My Orders Orders - ROSE AGUILAR RESIDENT Procedure Category Date Status Time Furosemide Injection PHA 03/12/25 In Process (Lasix Injection) 15:00 Albuterol Medneb PHA 03/12/25 In Process (Ventolin Medneb) 14:00 Ipratropium Medneb PHA 03/12/25 In Process (Atrovent Medneb) 14:00 Magic Mouthwash PHA 03/13/25 In Process Suspension (Majic 08:15 Potassium Chloride PHA 03/13/25 In Process (Potassium Chloride). 09:15 Dietary Evaluation Review Comments: 1) Encourage optimal PO intake. Current PO intake meets increased protein needs 2) Refer to outpatient RD for weight management 3) Follow-up with oncology 4) Continue to monitor I&O, labs, and skin integrity Expected Outcomes/Goals: 1) appetite and labs to improve 2) f/u in 3-5 days ROSE AGUILAR RESIDENT Mar 13, 2025 12:31
[2025-03-13] MEDS ORDERED: [UNRECOGNIZED DRUG - CODE] (14:40)
[2025-03-13] MEDS ORDERED: LEVO750T40 PO (14:40)
[2025-03-13] MEDS ORDERED: ACET-1079 PO (14:40)
--- NOTE | 2025-03-13 17:05 | DVHDSRES ---
Discharge Summary Date of Admission Resident Creating Document: ROSE AGUILAR RESIDENT Mar 09, 2025 at 22:03 Date of Discharge: Mar 13, 2025 Admitting Diagnosis #Acute hypoxic respiratory failure likely due to right-sided pleural effusion and pericardial effusion Labs/Diagnostic Data: Laboratory Results Test 03/13/25 14:01 03/13/25 05:55 03/12/25 08:45 03/10/25 10:20 POC Glucose 160 mg/dl (70-106) White Blood Count 5.0 10^3/uL (4.4-10.8) Red Blood Count 4.89 10^6/uL (4.0-5.20) Hemoglobin 14.5 g/dL (12.2-16.2) Hematocrit 43.2 % (36.0-46.0) Mean Corpuscular Volume 88.2 fL (80.0-100.0) Mean Corpuscular Hemoglobin 29.7 pg (28.0-32.0) Mean Corpuscular Hemoglobin Concent 33.7 g/dL (32.0-36.0) Red Cell Distribution Width 18.0 % (11.8-14.3) Platelet Count 254 10^3/uL (140-450) Mean Platelet Volume 8.1 fL (6.9-10.8) Neutrophils (%) (Auto) 77.5 % (37.0-80.0) Lymphocytes (%) (Auto) 6.2 % (10.0-50.0) Monocytes (%) (Auto) 14.2 % (0.0-12.0) Eosinophils (%) (Auto) 1.6 % (0.0-7.0) Basophils (%) (Auto) 0.5 % (0.0-2.0) Neutrophils # (Auto) 3.9 10 ^3/uL (1.6-8.6) Lymphocytes # (Auto) 0.3 10 ^3/uL (0.4-5.4) Monocytes # (Auto) 0.7 10 ^3/uL (0-1.3) Eosinophils # (Auto) 0.1 10 ^3/uL (0-0.8) Basophils # (Auto) 0 10 ^3/uL (0-0.2) Nucleated Red Blood Cells 0.3 % Sodium Level 138 mmol/L (136-145) Potassium Level 3.0 mmol/L (3.5-5.1) Chloride Level 97 mmol/L (98-107) Carbon Dioxide Level 30 mmol/L (20-31) Anion Gap 11 (5-15) Blood Urea Nitrogen 11 mg/dL (9-23) Creatinine 0.73 mg/dL (0.550-1.02) Glomerular Filtration Rate Calc 97 mL/min (>90) BUN/Creatinine Ratio 15.1 (10.0-20.0) Serum Glucose 78 mg/dL (74-106) Calcium Level 9.9 mg/dL (8.7-10.4) Total Bilirubin 0.8 mg/dL (0.2-1.0) Aspartate Amino Transferase (AST) 78 U/L (13-40) Alanine Aminotransferase (ALT) 48 U/L (7-40) Alkaline Phosphatase 267 U/L (46-116) Total Protein 6.9 g/dL (5.7-8.2) Albumin 4.2 g/dL (3.2-4.8) Blood Gas Specimen Type Arterial Blood Gas Sample Site Right radial Blood Gas Patient Temperature 37.0 Arterial Blood Date Drawn [id number] Arterial Blood pH 7.513 (7.350-7.450) Arterial Blood Partial Pressure CO2 35.1 mmHg (32.0-45.0) Arterial Blood Partial Pressure O2 47.3 mmHg (83.0-108.0) Arterial Blood HCO3 27.6 mmol/L (21.0-28.0) Arterial Blood Oxygen Saturation 85.5 % (94.0-98.0) Arterial Blood Base Excess 4.8 mmol/L (-2.0-3.0) Arterial Blood Oxyhemoglobin 84.1 % (94.0-98.0) Arterial Blood Carboxyhemoglobin 1.4 % (0.5-1.5) Arterial Blood Methemoglobin 0.2 % (0.0-1.5) Joe Test Modified Blood Gas Total Hemoglobin 15.10 g/dL (12.0-16.0) Blood Gas Modality Room air FiO2 % 21.0 Blood Gas Critical Value Read Back Yes Blood Gas Notified Whom guerrero Lezama md Blood Gas Notified Time [id number] Blood Gas Notified By Airam guerra rrt Body Fluid Source Pleural fluid Body Fluid pH 8.0 Body Fluid WBC (Manual) 1307 CUMM (0-200) Body Fluid RBC (Manual) 1886 CUMM (0-2000) Body Fluid Mononuclear Cells 95 % Body Fluid Polymorphonuclear Cells 5 % (0-25) Body Fluid Glucose 88 mg/dL (.) Body Fluid Total Protein 2.8 g/dL (.) Body Fluid Lactate Dehydrogenase 219 IU/L (.) Test 03/09/25 14:03 03/09/25 13:57 Urine Color Light-yellow (Yellow) Urine Clarity Clear (Clear) Urine pH 6.0 (5.0-9.0) Urine Specific [place] > 1.050 (1.001-1.035) Urine Protein Trace (Negative) Urine Ketones Negative (Negative) Urine Blood Trace /uL (Negative) Urine Nitrite Negative (Negative) Urine Bilirubin Negative (Negative) Urine Urobilinogen Normal mg/dL (Negative) Urine Leukocyte Esterase 2+ /uL (Negative) Urine RBC 5 /hpf (0 - 4) Urine Microscopic WBC 29 /HPF (0-5) Urine Squamous Epithelial Cells Few /hpf (<5) Urine Bacteria Few /hpf (None Seen) Urine Glucose Normal mg/dL (Normal) Urine Opiates Screen Neg (NEGATIVE) Urine Fentanyl Screen Neg (NEGATIVE) Urine Barbiturates Screen Neg (NEGATIVE) Urine Phencyclidine Screen Neg (NEGATIVE) Urine Amphetamines Screen Neg (NEGATIVE) Urine Benzodiazepines Screen Neg (NEGATIVE) Urine Cocaine Screen Neg (NEGATIVE) Urine Cannabinoids Screen Neg (NEGATIVE) D-Dimer, Quantitative 1.61 mg/L FEU (0.0-0.49) Hemoglobin A1c 5.2 % A1C (<5.7) Troponin I High Sensitivity 11 ng/L (</=34) B-Type Natriuretic Peptide 10.15 pg/mL (0-100) Triglycerides Level 64 mg/dL (< 150) Cholesterol Level 135 mg/dL (< 200) LDL Cholesterol 76 mg/dL (< 100) HDL Cholesterol 50 mg/dL (40-59) Other Laboratory Tests 03/13/25 05:55 Brief Hx & Hospital Course: A 62-year-old female with a history of stage IV HER2+ breast cancer (on chemotherapy at [facility]) was admitted with shortness of breath ongoing for one and a half weeks, worse when supine, better when upright. She denied fever, chills, cough, or sputum production. CT chest showed bilateral interstitial infiltrates, peribronchial thickening, moderate to large right-sided pleural effusion, and moderate pericardial effusion. Thoracentesis was performed with 400 cc fluid removed. No evidence of PE was found. Echocardiogram confirmed mild anterior pericardial effusion (~0.5 cm) and moderate pericardial effusion (~1.5 cm) anterior-lateral to the LV. Cardiology recommended conservative management with no drainage at this time. During hospitalization, patient was treated empirically for pneumonia with ceftriaxone and azithromycin, and furosemide was administered for diuresis. Breathing improved post-thoracentesis. O2 requirement was adjusted to nasal cannula at 23 L/min, patient was DC with home O2. ABG showed pO2 47 initially. UTI was also suspected and treated. Patient remained hemodynamically stable, continued chemotherapy as outpatient, and had [id number] discussion at bedside (patient remains full code). Discharge Medications: Levofloxacin 750 mg PO daily Nasal spray Continue chemotherapy sessions Case discussed with Dr Francis Full code Operations or Procedures PROCEDURE: Ultrasound-guided thoracentesis Procedural Personnel Attending physician(s): Kiko Yap Fellow physician(s): None Resident physician(s): None A dvanced practice provider(s): None Pre-procedure diagnosis: Dyspnea Post-procedure diagnosis: Same Indication: Diagnostic and therapeutic Additional clinical history: None Complications: No immediate complications. IMPRESSION: Ultrasound-guided thoracentesis with drainage of 400 mL of serous fluid. Plan: Resume care by clinical team. Fluid analysis pending. PROCEDURE SUMMARY: - Ultrasound-guided thoracentesis - Additional procedure(s): None PROCEDURE DETAILS: Pre-procedure Consent: Informed consent for the procedure including risks, benefits and alternatives was obtained and time-out was performed prior to the procedure. Preparation: The site was prepared and draped using maximal sterile barrier technique including cutaneous antisepsis. Anesthesia/sedation level of anesthesia/sedation: No sedation Anesthesia/sedation administered by: Not applicable Total intra-service sedation time (minutes): Not applicable Limited thoracic ultrasound Limited thoracic ultrasound was performed. Left hemithorax findings: Not investigated Right hemithorax findings: Small pleural effusion Thoracentesis Local anesthesia was administered. A safe window for thoracentesis was identified with ultrasound. The pleural space was accessed and fluid return confirmed position. The fluid was drained. The catheter was removed and a sterile dressing was applied. Catheter size (Fr):5 Catheter valve: Yes Fluid appearance: serous Volume drained (mL): 400 Post-drainage ultrasound: No visible effusion Additional Details Additional description of procedure: None Registry event: V/3/f Device used: None Equipment details: None Specimens removed: Aspirated fluid was sent for analysis. Estimated blood loss (mL): Less than 10 Standardized report: [email or web address] Attestation Signer name: Kiko Yap I attest that I was present for the entire procedure. I reviewed the stored images and agree with the report as written. Condition at Discharge: Stable Final Diagnosis/Problems List #Acute hypoxic respiratory failure likely due to right-sided pleural effusion and pericardial effusion #Right-sided pleural effusion likely due to malignancy #Acute pericardial effusion likely due to malignancy #Possible acute multifocal pneumonia #pneumonia gram+/gram- #Acute urinary tract infection #History of breast cancer diagnosed in 2017, currently on chemotherapy ([facility]) Discharge Disposition: Home Discharge Instruct/Medications Diet: Cardiac 2g Na,low cholest Activity: Light activity Follow Up/Referral: please fu in [facility] for results of cytology, please fu with [facility] Medications: see prescription Discharge Statement: "Patient was advised to return to the ER or call 911 if any headaches, dizziness, shortness of breath, chest pain, abdominal pain, bleeding, fevers, or worsening of medical condition. Patient was counseled about treatment plan, medications, possible side effects, patientverbalized understanding. All questions were answered to the best of my ability. This discharge took greater then 30 minutes in planning, reviewing documentation, counseling the patient, and discussing with other team members." ASSESSMENT ASSESSMENT Assessment pneumonia acute respiratory failure possible lung mets Date of Service: Mar 13, 2025 Billing Provider: KYLEIGH FRANCIS MD Common Visit Codes: 81438-POI/OBS DISCH DAY >30min ROES AGUILAR RESIDENT Mar 13, 2025 17:05 KYLEIGH FRANCIS MD Mar 16, 2025 11:52
--- NOTE | 2025-03-14 00:26 | DVHPN2 ---
Progress Note - Dictate Date Seen: Mar 13, 2025 Has the PT tested + for MRSA If YES, has PT been informed?: No Medical Necessity Reason Pt with a Central, PICC or Fol: No Subjective Patient was seen and evaluated in follow up. Patient has no new complaints at this time. Patient denies any cardiac symptoms. Patient is cardiac stable for discharge. Telemetry reviewed. vital signs Vital Sign Date Time Temp Pulse Resp B/P (MAP) Pulse Ox O2 Delivery O2 Flow Rate FiO2 03/13/25 15:10 36.9 03/13/25 13:21 105 18 94 03/13/25 13:10 Nasal Cannula 2.0 03/13/25 13:10 28 03/13/25 13:00 121/70 (87) Total Intake and Output 03/13/25 03/13/25 03/14/25 15:00 23:00 07:00 Intake Total 50 ml Balance 50 ml objective GENERAL: Alert and oriented x 3. No acute distress. Obese. EYES: PERRL, EOMI. Anicteric. HENT: Moist mucous membranes. LUNGS: Diminished breath sounds. CARDIOVASCULAR: Regular rate and rhythm. ABDOMEN: Soft, nontender and nondistended. EXTREMITIES: No edema. NEUROLOGIC: No focal neurological deficits. SKIN: Warm, dry. laboratory and microbiology Laboratory Tests 03/13/25 05:55 Test 03/13/25 05:55 Range/Units Serum Glucose 78 74-106 mg/dL Problem List Pericardial effusion, rule out cardiac tamponade. Acute hypoxic respiratory failure. Right-sided pleural effusion. History of stage IV breast cancer (HER 2+). Obesity. Assessment/Plan Continued all current supportive medical care. IV antibiotics as ordered. DVT prophylactics. Diuretics with Lasix. Additional plan as per the hospital course. Dietary Evaluation Review Comments: 1) Encourage optimal PO intake. Current PO intake meets increased protein needs 2) Refer to outpatient RD for weight management 3) Follow-up with oncology 4) Continue to monitor I&O, labs, and skin integrity Expected Outcomes/Goals: 1) appetite and labs to improve 2) f/u in 3-5 days Plan discussed with: Patient DWAYNE LINCOLN MD Mar 14, 2025 00:26
== END 2025-03-13 16:45 | disposition home or self-care (01) | DRG 136 ==
LOC: ER 13:23 → OVERFLOW 22:03 → CENTRAL 23:41 → TELE-CENTR 03-10 10:03
PROVIDERS: ADMIT Student in an Organized Health Care Education/Training Program; ATTEND Emergency Medicine
PROC: 0W993ZZ Drainage of Right Pleural Cavity, Percutaneous Approach (ICD-10-PCS; principal; 2025-03-10)
DX: C78.01 Secondary malignant neoplasm of right lung (principal); J96.01 Acute respiratory failure with hypoxia; J15.69 Pneumonia due to other Gram-negative bacteria; I30.9 Acute pericarditis, unspecified; J15.9 Unspecified bacterial pneumonia; I50.9 Heart failure, unspecified; J91.0 Malignant pleural effusion; C50.912 Malignant neoplasm of unspecified site of left female breast; Z68.33 Body mass index [BMI] 33.0-33.9, adult; E66.9 Obesity, unspecified; N39.0 Urinary tract infection, site not specified; J98.4 Other disorders of lung; Z88.8 Allergy status to other drugs, medicaments and biological substances; Z92.3 Personal history of irradiation; Z83.3 Family history of diabetes mellitus; Z82.49 Family history of ischemic heart disease and other diseases of the circulatory system; Z17.31 Human epidermal growth factor receptor 2 positive status; Z82.61 Family history of arthritis
CPT/HCPCS: 32555; 36415; 36600; 71045; 71275; 76604; 76942; 80048; 80053; 80061; 80307; 81001; 82805; 82962; 83036; 83880; 83986; 84484; 85025; 85379; 87086; 87205; 89051; 93005; 93306; 94640; 96365; 99291; 99292; G0378; J2003

== ENCOUNTER 2025-04-08 19:13 | Inpatient (IN) | payer OTHER, MEDICAID ==
[~2025-04-08] VITALS: Ht 149.9 cm; Wt 83.2 kg
[2025-04-08] MEDS: VANCOMYCIN 1GM/200ML PM 200 ML IV ONE (00:26)
[~2025-04-08 19:13] MED LIST changes: +ACET-1079 PO; -ASCO500T11 PO; -AZIT-185 PO; -AZIT1POW PO; +LEVO750T40 PO; -METH4PAK PO; +[UNRECOGNIZED DRUG - CODE]
--- NOTE | 2025-04-08 19:26 | ECG ---
[facility] Test Date: 2025-04-08 Test Time: 19:24:31 Pat Name: KRISTIN KING Department: ED Room: Gender: F Rewriter: EBER : 1970 Requested By: FLORI MERCEDES Order Number: [id number] Reading MD: Measurements Intervals Council Rate: 139 P: 0 [place]: 0 QRS: 184 QRSD: 102 T: 14 QT: 298 QTc: 453 Interpretive Statements Junctional tachycardia Right axis deviation Low voltage, precordial leads Baseline wander in lead(s) I,III,aVL Please click the below link to view image of tracing.
[2025-04-08] MEDS: NITROGLYCERIN 2% OINT 1GM PKG TD ONE (19:30)
--- NOTE | 2025-04-08 19:34 | ED.PDOC ---
SOB-HPI HPI Comments 54 year old female history of stage IV breast cancer with lung mets, pleural and pericardial effusions brought in by EMS from home complaining of shortness of breath that started today while she was undergoing a CT scan. Patient states she could not lie flat for the scan. Patient also notes worsening leg edema over the past week, orthopnea and dyspnea on exertion. Patient is on 2 L nasal cannula oxygen at baseline, and was found by EMS to be hypoxic on 2 L. She is currently saturating 94% on 5 L nasal cannula. She denies fever, cough or chest pain. Patient was discharged from our facility March 13 with diagnoses of #Acute hypoxic respiratory failure likely due to right-sided pleural effusion and pericardial effusion, #Right-sided pleural effusion likely due to malignancy, #Acute pericardial effusion likely due to malignancy, #Possible acute multifocal pneumonia, #pneumonia gram+/gram-, #Acute urinary tract infection, #History of breast cancer diagnosed in 2017, currently on chemotherapy ([facility]). Patient underwent thoracentesis. Cardiology recommended conservative management of the pericardial effusion. Chief Complaint: Shortness of Breath Time Seen by MD: 19:31 Primary Care Provider: ZACK Bernal notes: Delivery Truck Driver Notes Information Source: Patient, Emergency Med Personnel Mode of Arrival: EMS Severity: Moderate Timing: Hours Duration: Since onset Context: At Rest, With Light Exertion History of: Other (Breast cancer) Prehospital treatment: Oxygen Associated Signs and Symptoms: Leg Swelling Past Medical History PAST MEDICAL HISTORY: Cancer (Stage IV breast cancer with lung metastases, pleural and pericardial effusions), UTI'S Surgical History (Other): Thoracentesis MUSEUM HOST/HOSTESS History: No Pertinent MUSEUM HOST/HOSTESS History Family History Family History: Reviewed,noncontributory to illness, Family hx of DM Social History Smoker: Non-Smoker Alcohol: Denies ETOH Use Drugs: Denies Drug Use Lives In: Home Constitutional: reports: weakness; denies: chills, diaphoresis, fatigue, fever, malaise, sweats, others EENTM: denies: blurred vision, double vision, ear bleeding, ear discharge, ear drainage, ear pain, ear ringing, eye pain, eye redness, hearing loss, mouth pain, mouth swelling, nasal discharge, nose bleeding, nose congestion, nose pain, photophobia, tearing, throat pain, throat swelling, voice changes, others Respiratory: reports: orthopnea, SOB at rest, shortness of breath, SOB with excertion; denies: cough, hemoptysis, stridor, wheezing, others Cardiovascular: reports: edema; denies: chest pain, dizzy spells, diaphoresis, Dyspnea on exertion, irregular heart beat, left arm pain, lightheadedness, palpitations, PND, syncope, others Gastrointestinal: denies: abdomen distended, abdominal pain, blood streaked bowels, constipated, diarrhea, dysphagia, difficulty swallowing, hematemesis, melena, nausea, poor appetite, poor fluid intake, rectal bleeding, rectal pain, vomiting, others Genitourinary: denies: abnormal vagina bleeding, burning, dyspareunia, dysuria, flank pain, frequency, hematuria, incontinence, pain, , vagina discharge, urgency, others Neurological: denies: dizziness, fainting, headache, left sided numbness, left sided weakness, numbness, paresthesia, pre-existing deficit, right sided numbness, right sided weakness, seizure, speech problems, tingling, tremors, weakness, others Musculoskeletal: denies: back pain, gout, joint pain, joint swelling, muscle pain, muscle stiffness, neck pain, others Integumetry: denies: bruises, change in color, change in hair/nails, dryness, laceration, lesions, lumps, rash, wounds, others Allergic/Immunocompromised: denies: Difficulty Healing, Frequent Infections, Hives, Itching, others Hematologic/Lymphatic: denies: anemia, blood clots, easy bleeding, easy bruisin g, swollen glands, others Endocrine: denies: excessive hunger, excessive sweating, excessive thirst, excessive urination, flushing, intolerance to cold, intolerance to heat, unexplained weight gain, unexplained weight loss, others Psychiatric: denies: anxiety, bipolar disorder, depression, hopeless, panic disorder, schizophrenia, sleepless, suicidal, others Physical Exam General Appearance: No Apparent Distress HEENT: Other (Pupils and face symmetric. Moist mucous membranes.) Neck: Full Range of Motion, Normal Inspection Respiratory: Decreased Breath Sounds, No Accessory Muscle Use, Other (Tachypneic, mild respiratory distress, speaks full sentences) Cardiovascular: No JVD, Tachycardia Breast Exam: Deferred Gastrointestinal: Non Tender, Soft Genitalia: Deferred Pelvic: Deferred Rectal: Deferred Extremities: Leg edema, Normal range of motion, Pedal edema Neurologic: Alert (Oriented x4), Normal Affect, Normal Mood Cerebellar Function: NOT DONE Reflexes: NOT DONE Skin: Dry, Pallor, Warm Lymphatic: NOT DONE EKG EKG : Comments Wide complex tachycardia, rate 139, normal QRS and QTC intervals, right axis deviation, nonspecific T change Was a procedure done? Was a procedure done?: Yes Sedation Sedation?: No Central Line Recorder of insertion practice: Environmental Sustainability Manager Occupation of wind technician: Attending Physician Indication: Hypotension Room prepared for procedure: Yes Environmental Sustainability Manager performed hand hygien: Yes Maximal sterile barrier precau: Sterile gown, Sterlie gloves, Large sterlie drape Skin Preparation: Providine iodine Skin preparation completely dr: Yes Insertion site: Right, Internal jugular Central line catheter type: [id number] dialysis Number of lumens: 3 Central line exchanged over a: Yes Antiseptic ointment applied to: No Post Assessment: Chest X-Ray, Proper placement Informed consent obtained: Yes Risks/benefits/alt described: Yes Intubation Indication: Respiratory Insufficiency Prep: Preoxygenation Pretreated with: Sedation Medicated with: Succinylcholine, Other (Etomidate) Intubation Approach: Orotracheal Intubation size: cm (8.0, 24cm at the lip) Informed consent obtained: Yes Risks/benefits/alt described: Yes Differential Dx Differential Diagnosis: Asthma, Bronchitis, CHF, COPD, Pneumonia, Respiratory Distress, URI, Other (Worsening pleural and/or pericardial effusions, among others) X-Ray, Labs, Meds, VS Vital Signs Date Time Temp Pulse Resp B/P (MAP) Pulse Ox O2 Delivery O2 Flow Rate FiO2 04/08/25 20:45 138/83 04/08/25 20:16 32 90 Simple Mask* 10 99 04/08/25 19:35 99.2 136 26 140/105 (117) 94 99.2 04/08/25 19:30 38 95 Nasal Cannula* 4 36 04/08/25 19:24 139 Lab Test 04/08/25 21:38 04/08/25 21:12 04/08/25 20:15 04/08/25 19:42 Range/Units White Blood Count 14.1 H 4.4-10.8 10^3/uL Red Blood Count 5.66 H 4.0-5.20 10^6/uL Hemoglobin 16.8 H 12.2-16.2 g/dL Hematocrit 51.0 H 36.0-46.0 % Mean Corpuscular Volume 90.1 80.0-100.0 fL Mean Corpuscular Hemoglobin 29.8 28.0-32.0 pg Mean Corpuscular Hemoglobin Concent 33.1 32.0-36.0 g/dL Red Cell Distribution Width 19.4 H 11.8-14.3 % Platelet Count 103 L 140-450 10^3/uL Mean Platelet Volume 8.3 6.9-10.8 fL Neutrophils (%) (Auto) 37.0-80.0 % Lymphocytes (%) (Auto) 10.0-50.0 % Monocytes (%) (Auto) 0.0-12.0 % Basophils (%) (Auto) 0.0-2.0 % Neutrophils # (Auto) 1.6-8.6 10 ^3/uL Lymphocytes # (Auto) 0.4-5.4 10 ^3/uL Monocytes # (Auto) 0-1.3 10 ^3/uL Differential Total Cells Counted 100.0 100 Neutrophils % (Manual) 88 H 37.0-80.0 Band Neutrophils % (Manual) 2 Lymphocytes % (Manual) 2 L 10.0-50.0 Monocytes % (Manual) 8 0-12 Eosinophils % (Manual) 0 0-7 Basophils % (Manual) 0 0.0-2.0 Metamyelocytes % (manual) 0 Myelocytes % (Manual) 0 Promyelocytes % (Manual) 0 Blast Cells % (Manual) 0 Reactive Lymphocytes 0 Platelet Estimate Decreased Anisocytosis (manual) Moderate [place] Cells Moderate Lactic Acid Level 3.4 *H 3.8 *H 0.4-2.0 mmol/L Troponin I High Sensitivity 253 *H 133 *H </=34 ng/L Urine Color Dark-yellow Yellow Urine Clarity Turbid H Clear Urine pH 5.0 5.0-9.0 Urine Specific [place] 1.017 1.001-1.035 Urine Protein 1+ H Negative Urine Ketones Trace Negative Urine Blood Negative Negative /uL Urine Nitrite Negative Negative Urine Bilirubin 1+ H Negative Urine Urobilinogen 2 H Negative mg/dL Urine Leukocyte Esterase Negative Negative /uL Urine RBC 2 0 - 4 /hpf Urine Microscopic WBC 3 0-5 /HPF Urine Squamous Epithelial Cells Few <5 /hpf Urine Amorphous Crystals Few None Seen /hpf Urine Bacteria None seen None Seen /hpf Urine Hyaline Casts Mod 0 - 2 /lpf Urine Mucus Few None Seen Urine Glucose Trace Normal mg/dL Blood Gas Specimen Type Arterial Blood Gas Sample Site Left radial Blood Gas Patient Temperature 37.0 Arterial Blood Date Drawn [id number] Arterial Blood pH 7.398 7.350-7.450 Arterial Blood Partial Pressure CO2 34.6 32.0-45.0 mmHg Arterial Blood Partial Pressure O2 58.9 L 83.0-108.0 mmHg Arterial Blood HCO3 20.9 L 21.0-28.0 mmol/L Arterial Blood Oxygen Saturation 88.0 L 94.0-98.0 % Arterial Blood Base Excess -3.0 L -2.0-3.0 mmol/L Arterial Blood Oxyhemoglobin 86.5 L 94.0-98.0 % Arterial Blood Carboxyhemoglobin 1.0 0.5-1.5 % Arterial Blood Methemoglobin 0.7 0.0-1.5 % Joe Test Modified Blood Gas Total Hemoglobin 18.20 *H 12.0-16.0 g/dL Blood Gas Liter Flow 4.00 Blood Gas Modality Nasal cannula FiO2 % 36.0 Blood Gas Critical Value Read Back Yes Blood Gas Notified Whom catie Curry Blood Gas Notified Time [id number] Blood Gas Notified By elizabeth Cast Sodium Level 123 L 136-145 mmol/L Potassium Level 7.0 *H 3.5-5.1 mmol/L Chloride Level 87 L 98-107 mmol/L Carbon Dioxide Level 23 20-31 mmol/L Anion Gap 13 5-15 Blood Urea Nitrogen 93 *H 9-23 mg/dL Creatinine 2.47 H 0.550-1.02 mg/dL Glomerular Filtration Rate Calc 22 >90 mL/min BUN/Creatinine Ratio 37.7 H 10.0-20.0 Serum Glucose 116 H 74-106 mg/dL Calcium Level 10.7 H 8.7-10.4 mg/dL B-Type Natriuretic Peptide 392.97 0-100 pg/mL Current Medications Medications (Trade) Dose Ordered Sig/Mitali Route Start Time Stop Time Status Last Admin Ipratropium [place] (Atrovent Medneb) 0.5 mg ONCE ONCE NEB 04/08/25 19:30 04/08/25 19:31 DC 04/08/25 20:22 Furosemide (Lasix Injection) 40 mg ONCE ONCE IV 7/5/25 19:30 04/08/25 19:31 DC 04/08/25 20:45 Zirconium Oxide (Lokelma) 10 gm ONCE ONCE PO 04/08/25 20:15 04/08/25 20:17 DC 04/08/25 20:15 Insulin Human Regular (InsuLIN R) 10 units ONCE ONCE IV 04/08/25 20:15 04/08/25 20:17 DC 04/08/25 20:42 Dextrose 50 ml ONCE ONCE IV 04/08/25 20:15 04/08/25 20:17 DC 04/08/25 20:42 Sodium Bicarbonate 50 ml ONCE ONCE IV 04/08/25 20:15 04/08/25 20:17 DC 04/08/25 20:42 Calcium Gluconate/ Sodium Chloride 50 ml @ 100 mls/hr ONCE ONCE IV 04/08/25 20:15 04/08/25 20:44 DC 04/08/25 20:45 Albuterol (Ventolin Medneb) 20 mg ONCE ONCE NEB 04/08/25 20:15 04/08/25 20:17 DC 04/08/25 20:23 PROCEDURE(s): CXRP - CHEST PORTABLE REASON: sob ORDER NUMBER(s): [id number], ACCESSION NUMBER(s): [id number] EXAM: XY CHEST PORTABLE CLINICAL HISTORY: sob TECHNIQUE: Single AP view of the chest WID: COMPARISON: XY CHEST PORTABLE on DOS: 03/12/25 FINDINGS: Lines and tubes: None Chest: Mild cardiomegaly and pulmonary vascular congestion. Limited depth of inspiration with bilateral small pleural effusions. No pneumothorax. The osseous structures are grossly intact. IMPRESSION: Limited depth of inspiration. Mild cardiomegaly, pulmonary vascular congestion, and small bilateral pleural effusions. X-Ray, Labs, Meds, VS Comment 54 year old female history of stage IV breast cancer with lung mets, pleural and pericardial effusions brought in by EMS with shortness of breath Vitals remarkable for heart rate 139, respiratory rate 38, oxygen saturation 95% on 4 L nasal cannula Exam remarkable for diminished breath sounds, tachypnea and lower extremity edema Rhythm strip independently interpreted by me: Wide complex tachycardia, rate 139, no ectopy. Chest x-ray IMPRESSION: Limited depth of inspiration. Mild cardiomegaly, pulmonary vascular congestion, and small bilateral pleural effusions. CT chest without contrast: Pending CBC, BNP remarkable for sodium 123, potassium 7, chloride 87, BUN 93, creatinine 2.47, calcium 10.7, lactate 3.8, troponin 133, BNP 392.97 Patient treated with the following in the ED: Xopenex 1.25 mg/Atrovent 0.5 mg nebulized, Lasix 40 mg IV, placed on a Levophed infusion for hypotension, regular insulin 10 units IV, D50 50 mL IV, Lokelma 10 g p.o., sodium bicarb 50 mEq IV, calcium gluconate 1 g IV, albuterol 20 mg nebulized A right internal jugular central venous catheter was inserted. Please see procedure note for details. Was placed on BiPAP, as she was desaturating to the high 80s on non-rebreather mask. Patient could not tolerate the BiPAP. Decision was made to intubate. Patient was intubated via video laryngoscopy. Please see procedure note for details. On re-evaluation, heart rate is 154, oxygen saturation is 95% % on ventilator, blood pressure is 121/74 on Levophed infusion. Patient will require ICU admission, pulmonology, Cardiology and nephrology evaluation. Time of 1ST Reevaluation: 19:32 Reevaluation 1ST: Unchanged Patient Education/Counseling: Diagnosis, Treatment Family Education/Counseling: No Family Present SEPSIS Sepsis Screen Date sepsis recognized/suspect: Apr 08, 2025 Time Sepsis recognized/suspect: 21:21 SEPSIS EXCLUSION NOTE: Sepsis reassessment focused exam completed. Date: 04/08/25 Time 21:22 30 cc/kilogram IV fluid bolus was not administered due to the patient's findings of lower extremity edema, elevated BNP and evidence of fluid overload on chest x-ray. Aggressive fluid hydration could cause harm. Physician Orders Chest Portable (04/08/25 19:21) Blood Culture (04/08/25 19:21) Troponin-I Hs (04/08/25 22:21) Levalbuterol Hcl (Xopenex Medneb) (04/09/25 00:00) Norepinephrine 8 Mg/250ml Kit (Levophed) (04/08/25 20:15) Ct Ab Pel Wo Con-No Oral Or Iv (04/08/25 20:16) Abg W/ Co-Ox (04/08/25 20:24) BIPAP (04/08/25 20:47) Chest Xray 1 View (04/08/25 20:51) Vancomycin 1gm/200ml Pm (04/08/25 21:15) Notify Md If Map <65 Or Bp<90 (04/08/25 21:14) If Map<65 Start Vasopressor (04/08/25 21:14) Famotidine Injection (Pepcid Injection) (04/08/25 22:00) Vancomycin Per Pharmacy (04/08/25 22:00) *Dr. Hines [facility] (04/08/25 21:57) *Consult / (04/08/25 21:57) * Hematology/Oncology Consult (04/08/25 21:57) * Cardiology Consult (04/08/25 21:57) Ceftriaxone 1gm/50ml D5w (Rocephin) (04/09/25 09:00) Lorazepam 2mg/Ml Inj (Ativan Inj) (04/08/25 22:00) Furosemide Injection (Lasix Injection) (04/09/25 10:00) Allergies (04/08/25 21:57) Code Status (04/08/25 21:57) Oxygen Per Hour (04/08/25 21:57) Ondansetron Hcl (Zofran) (04/08/25 22:00) Fall Risk Precautions In Place QSHIFT (04/08/25 21:57) Complete Blood Count (04/09/25 04:00) Comprehensive Metabolic Panel (04/09/25 04:00) Npo (Nothing By Mouth) Diet (04/09/25 Breakfast) Condition: Serious (04/08/25 21:57) Maintain Bed Rest (04/08/25 21:57) Acetaminophen Suppository (Tylenol Suppo (04/08/25 22:15) Vital Signs Date Time Temp Pulse Resp B/P (MAP) Pulse Ox O2 Delivery O2 Flow Rate FiO2 04/08/25 20:45 138/83 04/08/25 20:16 32 90 Simple Mask* 10 99 04/08/25 19:35 99.2 136 26 140/105 (117) 94 99.2 7/5/25 19:30 38 95 Nasal Cannula* 4 36 04/08/25 19:24 139 Laboratory Tests Test 04/08/25 19:42 04/08/25 21:38 Lactic Acid Level 3.8 mmol/L (0.4-2.0) *H 3.4 mmol/L (0.4-2.0) *H White Blood Count 14.1 10^3/uL (4.4-10.8) H Medications Medications Dose Ordered Sig/Mitali Route Start Time Stop Time Status Last Admin Dose Admin Albuterol 20 mg ONCE ONCE NEB 04/08/25 20:15 04/08/25 20:17 DC 04/08/25 20:23 Calcium Gluconate/ Sodium Chloride 50 ml @ 100 mls/hr ONCE ONCE IV 04/08/25 20:15 04/08/25 20:44 DC 04/08/25 20:45 Dextrose 50 ml ONCE ONCE IV 04/08/25 20:15 04/08/25 20:17 DC 04/08/25 20:42 Furosemide 40 mg ONCE ONCE IV 04/08/25 19:30 04/08/25 19:31 DC 04/08/25 20:45 Insulin Human Regular 10 units ONCE ONCE IV 04/08/25 20:15 04/08/25 20:17 DC 04/08/25 20:42 Ipratropium [place] 0.5 mg ONCE ONCE NEB 04/08/25 19:30 04/08/25 19:31 DC 04/08/25 20:22 Sodium Bicarbonate 50 ml ONCE ONCE IV 04/08/25 20:15 04/08/25 20:17 DC 04/08/25 20:42 Zirconium Oxide 10 gm ONCE ONCE PO 04/08/25 20:15 04/08/25 20:17 DC 04/08/25 20:15 Reassessment Post Fluid SEPSIS FOCUS EXAM(REASSESSMENT Sepsis reassessment focused exam completed. Date: 04/08/25 Time 21:23 Departure 1 Departure Time of Disposition: 21:23 Impression: Primary Impression: Acute respiratory failure Additional Impressions: Pleural effusion Sepsis Acute renal failure Hyperkalemia Electrolyte imbalance Elevated troponin Cardiac arrhythmia Disposition: ADMITTED INPATIENT Admit to: ICU Condition: Critical Critical Care Note Critical Care Time?: Yes (90 min-critical care time only) Critical care comment: Critical care time including multiple bedside re-evaluations, review of lab and imaging studies, and discussion of the case with the admitting provider. Patient is high risk for respiratory, hemodynamic and/or metabolic decompensation. Stability Stability form required: No Heart Score Heart Score: Heart Score Response (Comments) Value History N/A 0 EKG N/A 0 Age N/A 0 Risk Factors N/A 0 Troponin N/A 0 Total 0 I personally scribed for FLORI SURESH MD ([email or web address]) on 04/08/25 at 19:34. Electronically submitted by Chauncey Wheeler ([facility]). I personally scribed for FLORI SURESH MD ([email or web address]) on 04/08/25 at 20:18. Electronically submitted by Chauncey Wheeler ([facility]). I personally scribed for FLORI SURESH MD ([email or web address]) on 04/08/25 at 21:00. Electronically submitted by Chauncey Wheeler ([facility]). I personally scribed for FLORI SUREHS MD ([email or web address]) on 04/08/25 at 22:38. Electronically submitted by Chauncey Wheeler ([facility]). FLORI SURESH MD Apr 08, 2025 19:34
--- NOTE | 2025-04-08 20:01 | DVH ---
EXAM: XY CHEST PORTABLE CLINICAL HISTORY: sob TECHNIQUE: Single AP view of the chest WID: COMPARISON: XY CHEST PORTABLE on DOS: 03/12/25 FINDINGS: Lines and tubes: None Chest: Mild cardiomegaly and pulmonary vascular congestion. Limited depth of inspiration with bilateral small pleural effusions. No pneumothorax. The osseous structures are grossly intact. IMPRESSION: Limited depth of inspiration. Mild cardiomegaly, pulmonary vascular congestion, and small bilateral pleural effusions.
[2025-04-08 20:07] LABS: Anion Gap 13 (5-15); Carbon Dioxide 23 mmol/L (20-31)
[2025-04-08 20:08] LABS: Calcium 10.7 mg/dL (8.7-10.4); Chloride 87 mmol/L (98-107); Sodium 123 mmol/L (136-145)
[2025-04-08 20:10] VITALS: PULSE 139; RESP 29; O2SAT 88
[2025-04-08] MEDS: NOREPINEPHRINE 8 MG/250ML KIT 250 ML IV ONE (20:10)
[2025-04-08 20:12] LABS: BUN/Creatinine Ratio 37.7 (10.0-20.0)
[2025-04-08 20:13] LABS: Glucose 116 mg/dL (74-106)
[2025-04-08 20:15] LABS: Blood Urea Nitrogen 93 mg/dL (9-23)
[2025-04-08] MEDS: SODIUM ZIRCONIUM CYCL 10 GM PAK PO ONE (20:15)
[2025-04-08] MEDS: NOREPINEPHRINE 8 MG/250ML KIT 250 ML IV SCH (20:15)
[2025-04-08] MEDS: IPRATROPIUM BROM 0.5 MG/2.5ML INH SOL NEB ONE (20:22)
[2025-04-08] MEDS: LEVALBUTEROL HCL 1.25 MG/3 ML NEB NEB SCH (20:23)
[2025-04-08] MEDS: ALBUTEROL SULF 2.5 MG/0.5ML(0.5%) NEB SOLN NEB ONE (20:23)
[2025-04-08 20:32] LABS: Lactic Acid w/Reflex 3.8 mmol/L (0.4-2.0)
[2025-04-08] MEDS: DEXTROSE (50%) 50ML SYRG IV ONE (20:42)
[2025-04-08] MEDS: InsuLIN REG 1unit/0.01ml Soln (100units/ml) IV ONE (20:42)
[2025-04-08] MEDS: SODIUM BICARB 8.4% 50Meq/50ml SYR Vial IV ONE (20:42)
[2025-04-08] MEDS: FUROSEMIDE 40 MG/4 ML VIAL IV ONE (20:45)
[2025-04-08] MEDS: CALCIUM GLUC 1,000mg/50ml-NS 50 ML IV ONE (20:45)
[2025-04-08 20:50] LABS: Base Excess -3.0 mmol/L (-2.0-3.0)
[2025-04-08] MEDS ORDERED: VANCOMYCIN 1GM/200ML PM 200 ML IV ONE (21:15)
[2025-04-08 21:42] LABS: Urine Amorphous Crystal FEW /hpf (None Seen); Urine Protein, UAD 1+ (Negative)
[2025-04-08 21:46] LABS: Hematocrit 51.0 % (36.0-46.0); Hemoglobin 16.8 g/dL (12.2-16.2); Mean Corpuscular Hemoglobin 29.8 pg (28.0-32.0); Mean Corpuscular Volume 90.1 fL (80.0-100.0)
[2025-04-08] MEDS ORDERED: LORazepam 2MG/ML-1ML VIAL IV PRN (22:00)
[2025-04-08] MEDS ORDERED: VANCOMYCIN PER PHARMACY 0 MG IV SCH (22:00)
[2025-04-08] MEDS ORDERED: ONDANSETRON HCL 4 MG/2 ML VIAL IV PRN (22:00)
[2025-04-08] MEDS: LORazepam 2MG/ML-1ML VIAL IV ONE (22:10)
[2025-04-08 22:11] LABS: Total Cells Counted 100.0 (100)
[2025-04-08 22:12] LABS: Anisocytosis Moderate
[2025-04-08] MEDS ORDERED: ACETAMINOPHEN 650 MG RECT SUPP PR PRN (22:15)
[2025-04-08] MEDS: SUCCINYLCHOLINE CHLORIDE 20 MG/ML 10ML VIAL IV ONE ×2 (22:21→22:28)
[2025-04-08] MEDS: ETOMIDATE (2MG/ML) 20ML VIAL IV ONE ×2 (22:21→22:28)
[2025-04-08 22:30] VITALS: BP 83/44; PULSE 159; RESP 20; O2SAT 98
[2025-04-08] MEDS ORDERED: MORPHINE SULFATE INJ 2 MG/ml SYRG IV PRN (22:30)
[2025-04-08] MEDS: MIDAZOLAM DRIP 50 mg/50mL 50 ML IV SCH (22:30)
[2025-04-08] MEDS ORDERED: NITROGLYCERIN 0.4 MG SL TAB SL PRN (22:30)
--- NOTE | 2025-04-08 22:48 | DVHHP2 ---
History of Present Illness Reason for Visit: Hypotension History of Present Illness The patient is a 54-year-old female with past medical history of stage IV breast cancer with Mets to the lungs, UTIs, pleural and pericardial effusions presented to [facility] ED with complaint of shortness of breaths. Patient reports symptoms started while she was undergoing a CT scan, unable to lie flat to the scan, notes worsening leg swelling over the past week, orthopnea, dyspnea on exertion, increased work of breathing, getting worse that prompted this visit. Patient currently on chemotherapy ([facility]), underwent thoracentesis, cardiology recommended conservative management of the pericardial effusion. Patient was discharged from our facility March 13 with similar symptoms. Patient was seen and evaluated in the ED, laboratory data shows WBC 14.1, hemoglobin 16.8, hematocrit 51.0, platelets 103, sodium 123, potassium 7.0, BUN 93, creatinine 2.47, glucose 116, calcium 10.7, troponin 133, lactic acid 3.8, blood pressure 83/49, heart rate 148, temperature 99.2 F, O2 saturation 90% on simple mask. Chest x-ray revealing mild cardiomegaly, pulmonary vascular congest ion, and small bilateral pleural effusions. Patient was started on IV Levophed, given IV antibiotic regimen vancomycin, please see medication orders section in the computer. On my assessment, sister at bedside, patient denied chest pain, no headache, no diaphoresis, currently on oxygen, no diarrhea, no nausea, no vomiting, no fever, no chills. Patient was admitted for further evaluation and medical management. Past Medical History Cancer (Stage IV breast cancer with lung metastases, pleural and pericardial effusions), UTI'S Past Surgical History Thoracentesis Family History Reviewed, noncontributory to the management of this case. Past Social History The patient lives at home, denies smoking, alcohol or illicit drugs abuse. Review of Systems Constitutional: Yes: Weakness, Other (Fatigue); No: Fever, Chills, Sweats, Malaise Eyes: No: Pain, Vision change, Conjunctivae inflammation, Eyelid inflammation, Other, Redness ENT: No: Ear pain, Ear discharge, Nose pain, Nose discharge, Nose congestion, Mouth pain, Mouth swelling, Throat pain, Throat swelling, Other Respiratory: Shortness of breath (Orthopnea), SOB with excertion, Other (SOB at rest); No: Cough, Dry, Wheezing, Hemoptysis, Pleuritic Pain, Sputum, Wheezing Cardiovascular: Edema; No: Chest Pain, Palpitations, Orthopnea, Paroxysmal Noc. Dyspnea, Lt Headedness, Other Gastrointestinal: No: Nausea, Vomiting, Abdominal Pain, Diarrhea, Constipation, Melena, Hematochezia, Other Genitourinary: No Dysuria, No Frequency, No Incontinence, No Hematuria, No Retention; Other (Kim catheter in place) Musculoskeletal: other (Bilateral lower extremity swelling); No: neck pain, shoulder pain, arm pain, back pain, hand pain, leg pain, foot pain Skin: No: Rash, Lesions, Jaundice, Bruising, Other Neurological: Weakness; No: Numbness, Incoordination, Change in speech, Confusion, Seizures, Other Allergies: Coded Allergies: Cephalexin (Verified Allergy, Unknown, 03/09/25) Latex (Verified Allergy, Unknown, 03/09/25) Uncoded Allergies: HEAT (Allergy, Unknown, 03/09/25) SUNSHINE (Allergy, Unknown, 03/09/25) Medications Current Medications Medications Dose Ordered Sig/Mitali Route Start Time Stop Time Status Last Admin Dose Admin Levalbuterol HCl 1.25 mg Q6HR NEB 04/09/25 00:00 04/08/25 20:23 1.25 MG Norepinephrine Bitartrate 250 ml @ 3.75 mls/hr Q24H IV 04/08/25 20:15 Famotidine 10 mg Q12HR IV 04/08/25 22:00 Vancomycin HCl 0 ml @ 0 mls/hr UD IV 04/08/25 22:00 UNV Ceftriaxone Sodium 50 ml @ 100 mls/hr DAILY@09 IV 04/09/25 09:00 UNV Lorazepam 1 mg Q6HP PRN IV 04/08/25 22:00 Furosemide 40 mg DAILY IV 04/09/25 10:00 Ondansetron HCl 4 mg Q4HP PRN IV 04/08/25 22:00 Acetaminophen 650 mg Q6HP PRN PA 04/08/25 22:15 Exam Vital Signs Vital Signs Date Time Temp Pulse Resp B/P (MAP) Pulse Ox O2 Delivery O2 Flow Rate FiO2 04/08/25 20:45 138/83 04/08/25 20:16 32 90 Simple Mask* 10 99 04/08/25 19:35 99.2 136 99.2 General Appearance: Alert, Oriented X3, Cooperative, No acute distress HEENT: Atraumatic, PERRLA, EOMI, Mucous membr. moist/pink Respiratory: Normal air movement, Other (Shortness of breaths) Cardiovascular: Regular rate, Normal S1, Normal S2, No murmurs Abdominal: Normal bowel sounds, Soft, No tenderness, No hepatospenomegaly, No masses Extremities: No clubbing, No cyanosis, Normal pulses, Other (Lower extremity swelling) Skin: No rashes, No significant lesion Neuro: Normal speech, Normal tone, Sensation intact, Cranial nerves 3-12 NL, Reflexes 2+, Other (Generalized weakness) Psych/Mental Status: Mental status NL, Mood NL Labs/Xrays Labs Test 04/08/25 21:38 04/08/25 21:12 04/08/25 20:15 04/08/25 19:42 Range/Units White Blood Count 14.1 H 4.4-10.8 10^3/uL Red Blood Count 5.66 H 4.0-5.20 10^6/uL Hemoglobin 16.8 H 12.2-16.2 g/dL Hematocrit 51.0 H 36.0-46.0 % Mean Corpuscular Volume 90.1 80.0-100.0 fL Mean Corpuscular Hemoglobin 29.8 28.0-32.0 pg Mean Corpuscular Hemoglobin Concent 33.1 32.0-36.0 g/dL Red Cell Distribution Width 19.4 H 11.8-14.3 % Platelet Count 103 L 140-450 10^3/uL Mean Platelet Volume 8.3 6.9-10.8 fL Neutrophils (%) (Auto) 37.0-80.0 % Lymphocytes (%) (Auto) 10.0-50.0 % Monocytes (%) (Auto) 0.0-12.0 % Basophils (%) (Auto) 0.0-2.0 % Neutrophils # (Auto) 1.6-8.6 10 ^3/uL Lymphocytes # (Auto) 0.4-5.4 10 ^3/uL Monocytes # (Auto) 0-1.3 10 ^3/uL Differential Total Cells Counted 100.0 100 Neutrophils % (Manual) 88 H 37.0-80.0 Band Neutrophils % (Manual) 2 Lymphocytes % (Manual) 2 L 10.0-50.0 Monocytes % (Manual) 8 0-12 Eosinophils % (Manual) 0 0-7 Basophils % (Manual) 0 0.0-2.0 Metamyelocytes % (manual) 0 Myelocytes % (Manual) 0 Promyelocytes % (Manual) 0 Blast Cells % (Manual) 0 Reactive Lymphocytes 0 Platelet Estimate Decreased Anisocytosis (manual) Moderate [place] Cells Moderate Lactic Acid Level 3.4 *H 0.4-2.0 mmol/L Troponin I High Sensitivity 253 *H </=34 ng/L Urine Color Dark-yellow Yellow Urine Clarity Turbid H Clear Urine pH 5.0 5.0-9.0 Urine Specific [place] 1.017 1.001-1.035 Urine Protein 1+ H Negative Urine Ketones Trace Negative Urine Blood Negative Negative /uL Urine Nitrite Negative Negative Urine Bilirubin 1+ H Negative Urine Urobilinogen 2 H Negative mg/dL Urine Leukocyte Esterase Negative Negative /uL Urine RBC 2 0 - 4 /hpf Urine Microscopic WBC 3 0-5 /HPF Urine Squamous Epithelial Cells Few <5 /hpf Urine Amorphous Crystals Few None Seen /hpf Urine Bacteria None seen None Seen /hpf Urine Hyaline Casts Mod 0 - 2 /lpf Urine Mucus Few None Seen Urine Glucose Trace Normal mg/dL Blood Gas Specimen Type Arterial Blood Gas Sample Site Left radial Blood Gas Patient Temperature 37.0 Arterial Blood Date Drawn [id number] Arterial Blood pH 7.398 7.350-7.450 Arterial Blood Partial Pressure CO2 34.6 32.0-45.0 mmHg Arterial Blood Partial Pressure O2 58.9 L 83.0-108.0 mmHg Arterial Blood HCO3 20.9 L 21.0-28.0 mmol/L Arterial Blood Oxygen Saturation 88.0 L 94.0-98.0 % Arterial Blood Base Excess -3.0 L -2.0-3.0 mmol/L Arterial Blood Oxyhemoglobin 86.5 L 94.0-98.0 % Arterial Blood Carboxyhemoglobin 1.0 0.5-1.5 % Arterial Blood Methemoglobin 0.7 0.0-1.5 % Joe Test Modified Blood Gas Total Hemoglobin 18.20 *H 12.0-16.0 g/dL Blood Gas Liter Flow 4.00 Blood Gas Modality Nasal cannula FiO2 % 36.0 Blood Gas Critical Value Read Back Yes Blood Gas Notified Whom catie Curry Blood Gas Notified Time [id number] Blood Gas Notified By Rt, elizabeth harry Sodium Level 123 L 136-145 mmol/L Potassium Level 7.0 *H 3.5-5.1 mmol/L Chloride Level 87 L 98-107 mmol/L Carbon Dioxide Level 23 20-31 mmol/L Anion Gap 13 5-15 Blood Urea Nitrogen 93 *H 9-23 mg/dL Creatinine 2.47 H 0.550-1.02 mg/dL Glomerular Filtration Rate Calc 22 >90 mL/min BUN/Creatinine Ratio 37.7 H 10.0-20.0 Serum Glucose 116 H 74-106 mg/dL Calcium Level 10.7 H 8.7-10.4 mg/dL B-Type Natriuretic Peptide 392.97 0-100 pg/mL PATIENT: KRISTIN KING ACCT: [id number] UNIT: [id number] : 1970 LOC: ER ROOM / BED: / AGE / SEX: 54 / F ADM STATUS: REG ER SERVICE 20 ORDERING PHYSICIAN: FLROI SURESH MD PROCEDURE(s): CXRP - CHEST PORTABLE REASON: sob ORDER NUMBER(s): [id number], ACCESSION NUMBER(s): [id number] EXAM: XY CHEST PORTABLE CLINICAL HISTORY: sob TECHNIQUE: Single AP view of the chest WID: COMPARISON: XY CHEST PORTABLE on DOS: 03/12/25 FINDINGS: Lines and tubes: None Chest: Mild cardiomegaly and pulmonary vascular congestion. Limited depth of inspiration with bilateral small pleural effusions. No pneumothorax. The osseous structures are grossly intact. IMPRESSION: Limited depth of inspiration. Mild cardiomegaly, pulmonary vascular congestion, and small bilateral pleural effusions. Assessment/Plan Assessment/Plan Acute respiratory failure Elevated troponin Cardiac arrhythmia Pleural effusion Sepsis, unspecified organisms Acute renal failure Hyperkalemia Electrolyte imbalance Generalized weakness Plan 1. Admit to intensive care unit 2. Breathing treatment 3. Pain control management 4. IV antibiotic management 5. Management of fluids and electrolytes 6. Consultation for Cardiology/hospitalist 7. Diagnostic test chest x-ray 8. DVT prophylaxis-on aspirin 9. Repeat labs CBC, CMP in a.m. 10. Home medication reviewed and reconciled 11. Continue with current medical management 12. Treatment plan discussed with patient and RN. Patient verbalized understanding. Plan discussed with: Patient, Other (RN) My Orders Orders - ELENA RHOADES DNP Procedure Category Date Status Time Famotidine Injection PHA 04/08/25 Logged (Pepcid Injection) 22:00 Vancomycin Per PHA 04/08/25 Logged Pharmacy 22:00 *Dr. Donny Crane CONS 04/08/25 Transmitted [place] 21:57 *Consult CONS 04/08/25 Transmitted / 21:57 * Hematology/Oncology CONS 04/08/25 Transmitted Consult 21:57 * Cardiology Consult CONS 04/08/25 Transmitted 21:57 Ceftriaxone 1gm/50ml PHA 04/09/25 Pending D5w (Rocephin) 09:00 Lorazepam 2mg/Ml Inj PHA 04/08/25 In Process (Ativan Inj) 22:00 Furosemide Injection PHA 04/09/25 In Process (Lasix Injection) 10:00 Allergies WANG 04/08/25 In Process 21:57 Code Status CODE 04/08/25 Transmitted 21:57 Oxygen Per Hour RT 04/08/25 Transmitted 21:57 Ondansetron Hcl PHA 04/08/25 In Process (Zofran) 22:00 Fall Risk Precautions WANG 04/08/[address] 21:57 Complete Blood Count LAB 04/09/25 Verified 04:00 Comprehensive LAB 04/09/25 Verified Metabolic Panel 04:00 Npo (Nothing By DIET 04/09/25 Transmitted Mouth) Diet Breakfast Condition: Serious WANG 04/08/25 In Process 21:57 Maintain Bed Rest WANG 04/08/25 In Process 21:57 Acetaminophen PHA 04/08/25 In Process Suppository (Tylenol 22:15 Admit ADMIT 04/08/25 Verified 22:17 Nitroglycerin PHA 04/08/25 Verified Sublingual (Ntrostat 22:30 Morphine Sulfate PHA 04/08/25 Verified Injection 22:30 Stat Ekg For Chest WANG 04/08/25 Verified Pain 22:17 Notify Md Of Changes WANG 04/08/25 Verified From Base 22:17 Warehousing Technician For [facility] 04/08/25 Verified 24 Hours 22:17 Emergency Dysrhythmia WANG 04/08/25 Verified Protocol 22:17 Rhythm Strips Once WANG 04/08/25 Verified Every Shift 22:17 Oxygen By Nasal RT 04/08/25 Verified Cannula 22:17 Problem List: (1) Acute respiratory failure (2) Elevated troponin (3) Electrolyte imbalance (4) Pleural effusion (5) Sepsis, unspecified organism (6) Cardiac arrhythmia (7) Acute renal failure (8) Hyperkalemia (9) Generalized weakness Date of Service: Apr 08, 2025 Billing Provider: ELENA RHOADES DNP Common Visit Codes: 58688-RTNPXPW INP/OBS CARE (HIGH) ELENA RHOADES DNP Apr 08, 2025 22:48
--- NOTE | 2025-04-08 22:56 | DVH ---
EXAM: XY CHEST XRAY 1 VIEW CLINICAL HISTORY: PLACEMENT TECHNIQUE: Single AP view of the chest WID: COMPARISON: XY CHEST PORTABLE on DOS: 04/08/25 FINDINGS: Lines and tubes: Right IJ central venous catheter which projects over the right atrium. Chest: Mild cardiomegaly and pulmonary vascular congestion. Limited depth of inspiration. Small bilateral pleural effusions. No pneumothorax. The osseous structures are grossly intact. IMPRESSION: Placement of right IJ central venous catheter with the tip projecting over the right atrium. Cardiomegaly, pulmonary vascular congestion, and bilateral pleural effusions. Limited depth of inspi ration.
[2025-04-08 23:23] VITALS: BP 121/69; PULSE 166; RESP 20; TEMP 98; O2SAT 98
[2025-04-08 23:45] VITALS: BP 115/71; PULSE 134; RESP 20; O2SAT 98
[2025-04-08 23:47] LABS: Base Excess -3.8 mmol/L (-2.0-3.0)
[2025-04-09] VITALS (102 sets, daily range): BP systolic 76–133; BP diastolic 16–96; PULSE 91–197; RESP 16–27; TEMP 97.1–99.3; O2SAT 89–99
[2025-04-09] MEDS: PHENYLEPHRINE IV 250 ML IV SCH (00:06)
[2025-04-09] MEDS: FAMOTIDINE (10MG/ML) 2ML VL IV SCH (00:26)
--- NOTE | 2025-04-09 00:42 | DVH ---
EXAM: XY CHEST XRAY 1 VIEW CLINICAL HISTORY: post intubation TECHNIQUE: Single AP view of the chest WID: COMPARISON: XY CHEST XRAY 1 VIEW on DOS: 04/08/25 FINDINGS: Lines and tubes: Endotracheal tube projects 1.2 cm above the kavya. Right IJ central venous catheter with the tip projecting over the right atrium. Gastric tube descends beneath the level of the diaphr agm tip not visualized in field of view. Chest: Cardiomegaly and pulmonary vascular congestion. Limited depth of inspiration. Linear perihilar and bibasilar opacities. Small bilateral pleural eff usions. No pneumothorax. The osseous structures are grossly intact. IMPRESSION: Endotracheal tube placement with the tip projecting 1.2 cm above the kavya. Right IJ central venous catheter and gastric tube in place. Cardiomegaly, pulmonary vascular congestion, perihilar opacities and small bilateral pleural effusion s.
[2025-04-09 02:40] LABS: Hematocrit 47.4 % (36.0-46.0); Hemoglobin 16.0 g/dL (12.2-16.2); Mean Corpuscular Hemoglobin 29.8 pg (28.0-32.0); Mean Corpuscular Volume 88.2 fL (80.0-100.0); Nucleated Red Blood Cells % 2.1 %
[2025-04-09 02:43] LABS: Anion Gap 12 (5-15); BUN/Creatinine Ratio 44.4 (10.0-20.0); Calcium 8.8 mg/dL (8.7-10.4); Carbon Dioxide 23 mmol/L (20-31)
[2025-04-09 02:46] LABS: Alanine Aminotransferase 290 U/L (7-40); Albumin 3.0 g/dL (3.2-4.8); Alkaline Phosphatase 736 U/L (46-116); Bilirubin, Total 6.0 mg/dL (0.2-1.0); Chloride 91 mmol/L (98-107); Glucose 118 mg/dL (74-106); Sodium 126 mmol/L (136-145); Total Protein 5.3 g/dL (5.7-8.2)
[2025-04-09 02:48] LABS: Potassium 5.9 mmol/L (3.5-5.1)
[2025-04-09 02:49] LABS: Blood Urea Nitrogen 100 mg/dL (9-23)
[2025-04-09 02:55] LABS: INR 1.49 (0.9-1.15); Partial Thromboplastin Time 31.5 SEC (24.5-34.5); Prothrombin Time 15.2 sec (9.3-11.8)
[2025-04-09] MEDS: DEXTROSE (50%) 50ML SYRG IV ONE (05:26)
[2025-04-09] MEDS: SODIUM BICARB 8.4% 50Meq/50ml SYR INJ IV ONE (05:26)
[2025-04-09] MEDS: FUROSEMIDE 20 MG/2 ML VIAL IV ONE (05:27)
[2025-04-09] MEDS: SODIUM ZIRCONIUM CYCL 10 GM PAK PO ONE (05:28)
[2025-04-09] MEDS: InsuLIN REG 1unit/0.01ml Soln (100units/ml) IV ONE (05:28)
[2025-04-09] MEDS: CALCIUM GLUC 1,000mg/50ml-NS 50 ML IV ONE (05:37)
--- NOTE | 2025-04-09 05:49 | DVH ---
EXAM: CT HEAD WITHOUT CONTRAST INDICATION: pupils pinpoint and non-reactive TECHNIQUE: CT of the head without intravenous contrast. Radiation Dose Information: CT Dose: CTDI volume is 25 mGy. Dose-length product is 250 mGy*cm The dose indicators for CT are the volume Computed Tomography (CT) Dose Index (CTDIvol) and the Dose Length Product (DLP), and are measured in units of mGy and mGy-cm, respectively. These indicators are not patient dose, but values generated from the CT scanner acquisition factors. The report includes radiation exposure data for exposures received during this examination. COMPARISON: None FINDINGS: There is no evidence of acute intracranial hemorrhage, extra-axial collection, mass effect, midline s hift, herniation or hydrocephalus. The ventricles, sulci and cisterns are age appropriate. The weiss-white differentiation is intact. Patchy periventricular and subcortical white matter hypoattenuation is nonspecific but may be related to small vessel ischemic disease. The visualized paranasal sinuses and mastoid air cells are clear. The surrounding soft tissues and osseous structures are unremarkable. IMPRESSION: No acute intracranial abnormality.
--- NOTE | 2025-04-09 05:58 | DVH ---
EXAM: CT CT AB PEL WO CON-NO ORAL OR IV HISTORY: sob COMPARISON: CT scan of the chest dated 03/09/2025. TECHNIQUE: Helical CT images of the abdomen and pelvis were performed without IV contrast. Sagittal a nd coronal reformatted images were obtained. This CT exam was performed using one or more of the foll owing dose reduction techniques: Automated exposure control, adjustment of the mA and/or kv according to patient size, or the use of iterative reconstruction techniques. Radiation Dose: Abdomen/Pelvis: CTDIvol 12.58 mGy, DLP 788.67 mGy*cm. FINDINGS: CT abdomen: There are patchy and interstitial opacities in the lung bases. There are moderate right and small left pleural effusions. The heart is enlarged. There is a moderate to large pericardial ef fusion. NG tube is present with its tip in the gastric antral region. There is diffuse heterogeneous attenuation of the liver likely due to diffuse metastatic disease. Hepatic margins are nodular. Th e liver measures 20 cm longitudinal. Multiple gallstones are identified in the gallbladder. There is low volume free fluid in the upper abdomen. The noncontrast spleen, pancreas, kidneys, and adrenal g lands are unremarkable. No abdominal aortic aneurysm. CT pelvis: No abnormal bowel dilatation or free air. There is low volume free fluid in the pelvis. Th e appendix is not dilated. Kim catheter is present in the urinary bladder. There is mild Lumbar de generative disc disease. There is bilateral femoral head avascular necrosis without collapse of the a rticular surface at this time. IMPRESSION: 1. Bilateral lung base infiltrates and pleural effusions which may be due to CHF and/or pneumonia. Th janae have increased compared with CT scan of the chest dated 03/09/2025. 2. Cardiomegaly and moderate to large pericardial effusion, similar to that seen on the previous CT s can of the chest. 3. Hepatomegaly with nodular hepatic margins and diffuse heterogeneous attenuation of the liver. Thi s appearance is likely due to widespread metastatic disease, less likely cirrhosis with regenerative nodules. Does the patient have a known malignancy 4. Cholelithiasis. 5. Low volume free fluid in the abdomen and pelvis. 6. Bilateral femoral head avascular necrosis. Recommend follow-up outpatient MRI of the bilateral hi ps and nonemergent orthopedic surgery consultation. 7. No evidence of bowel obstruction, acute appendicitis, or other acute process in the abdomen or pel vis.
[2025-04-09 07:17] LABS: Base Excess 0.3 mmol/L (-2.0-3.0)
[2025-04-09 08:25] LABS: Albumin 3.2 g/dL (3.2-4.8); Anion Gap 13 (5-15); BUN/Creatinine Ratio 45.7 (10.0-20.0); Calcium 9.8 mg/dL (8.7-10.4); Carbon Dioxide 25 mmol/L (20-31)
[2025-04-09 08:31] LABS: Alanine Aminotransferase 307 U/L (7-40); Alkaline Phosphatase 829 U/L (46-116); Bilirubin, Total 6.5 mg/dL (0.2-1.0); Chloride 92 mmol/L (98-107); Glucose 121 mg/dL (74-106); Sodium 130 mmol/L (136-145); Total Protein 5.2 g/dL (5.7-8.2)
[2025-04-09 08:32] LABS: Blood Urea Nitrogen 105 mg/dL (9-23); Potassium 5.7 mmol/L (3.5-5.1)
[2025-04-09 08:36] LABS: Potassium 7.0 mmol/L (3.5-5.1)
[2025-04-09] MEDS: VASOPRESSIN 20 UNITS in SODIUM CHL 0.9% 99 ML IV SCH (08:45)
--- NOTE | 2025-04-09 09:50 | DVHINCON2 ---
SILVIO JIMÉNEZ [facility] 04/09/25 0950: Date Seen: Apr 09, 2025 Referring Physician DONAL Adan Reason for Consultation Hypotension History of Present Illness This is a 54-year-old female patient who presents to emergency room with chief complaint of worsening shortness of breath and generalized edema for one week prior to emergency room arrival. At the time of assessment, the patient is chemically sedated and mechanically ventilated. History obtained from medical records and patient's brother who was at bedside. According to the patient's brother, the patient has been experiencing generalized edema for approximately one week. She went to see her primary care physician who prescribed her Lasix and potassium replacement. He states that the patient was also complaining of shortness of breath which was becoming progressively worse. The patient was intubated in the emergency room for airway protection. Cardiology has been consulted at this time for hypotension. Initial twelve lead electrocardiogram reveals an atrial tachycardia with right axis deviation.. At the time of assessment, the patient is in sinus tachycardia on cardiac care nurse. Initial troponin level of 133ng/L with current peak level at 416ng/L. 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 The patient reports that she was initially diagnosed with stage III (HER 2+) breast cancer in 2016 in which she underwent chemotherapy and was in remission in 2019. According to reports, her cancer came back in 2021 at stage IV and has been undergoing chemotherapy treatment at [facility] since then. Past Medical History Past medical history reviewed. No other significant than mentioned above. Past Surgical History Breast lumpectomy in 2022 Lymph node removal x 7 in 2022 Family History: Arthritis G8 MOTHER Cardiovascular disease G8 MOTHER Diabetes mellitus G8 FATHER G8 BROTHER Hypertension G8 MOTHER Family History Family history reviewed. Social History Denies the use of tobacco, alcohol or illicit drugs. Allergies: Coded Allergies: Cephalexin (Verified Allergy, Unknown, 03/09/25) Latex (Verified Allergy, Unknown, 03/09/25) Uncoded Allergies: HEAT (Allergy, Unknown, 03/09/25) SUNSHINE (Allergy, Unknown, 03/09/25) Home Meds Active Scripts Oxymetazoline Hcl (Nasal Dennis Extra Moistur) 0.05 % Spr, 0.05 % NA TID for 30 Days, #2 SPRAY Prov:ROSE AGUILAR RESIDENT 03/13/25 Acetaminophen (Tylenol) 325 Mg Tb, 325 MG PO TID for 5 Days, #15 TAB Prov:ROSE AGUILAR RESIDENT 03/13/25 Levofloxacin Hemihydrate (LEVOFLOXACIN) 750 Mg Tab, 750 MG PO DAILY for 10 Days, #10 TAB Prov:ROSE AGUILAR RESIDENT 03/13/25 Home Meds Home medications reviewed. Current Medications Current Medications Medications (Trade) Dose Ordered Sig/Mitali Route PRN Reason Start Time Stop Time Status Last Admin Levalbuterol HCl (Xopenex Medneb) 1.25 mg Q6HR NEB 04/09/25 00:00 04/09/25 07:03 Norepinephrine Bitartrate 250 ml @ 3.75 mls/hr Q24H IV 04/08/25 20:15 04/09/25 07:01 Famotidine (Pepcid Injection) 10 mg Q12HR IV 04/08/25 22:00 04/09/25 00:26 Vancomycin HCl 0 ml @ 0 mls/hr UD IV 04/08/25 22:00 Ceftriaxone Sodium 50 ml @ 100 mls/hr DAILY@09 IV 04/09/25 09:00 UNV Lorazepam (Ativan Inj) 1 mg Q6HP PRN IV ANXIETY 04/08/25 22:00 Furosemide (Lasix Injection) 40 mg DAILY IV 04/09/25 10:00 Ondansetron HCl (Zofran) 4 mg Q4HP PRN IV NAUSEA / VOMITING 04/08/25 22:00 Acetaminophen (Tylenol Suppository) 650 mg Q6HP PRN MI PAIN SCALE 1-3 OR TEMP>100.4 04/08/25 22:15 Nitroglycerin (Ntrostat Sublingual) 0.4 mg Q5MINP PRN SL FOR CHEST PAIN 04/08/25 22:30 Morphine Sulfate 2 mg Q30M PRN IV FOR CHEST PAIN 04/08/25 22:30 Phenylephrine HCl 250 ml @ 30 mls/hr Q8H20M IV 04/08/25 22:30 04/09/25 05:42 Midazolam HCl 50 ml @ 1 mls/hr Q24H IV 04/08/25 22:30 04/09/25 03:28 Vasopressin 20 units/Sodium Chloride 100 ml @ 9 mls/hr Q11H7M IV 04/09/25 08:45 Review of Systems Constitutional: No symptom reported Ears, Nose, & Throat: No symptom reported Eyes: No symptom reported Neurological: No symptoms reported Pulmonary/Respiratory: Shortness of breath Cardiovascular: Generalized edema Gastrointestinal: No symptom reported Genitourinary: No symptom reported Musculoskeletal: No symptom reported Skin: No symptom reported Psychiatric: No symptom reported Endocrine: No symptom reported Hematologic/Lymphatic: No symptom reported Vital Signs Vital Signs Date Time Temp Pulse Resp B/P (MAP) Pulse Ox O2 Delivery O2 Flow Rate FiO2 04/09/25 09:17 118 20 83/57 (66) 97 55 04/09/25 08:16 98.6 98.6 04/09/25 08:00 Mechanical Ventilator+ 04/08/25 20:16 10 Physical Exam General Appearance: Calm, relaxed Pulmonary/Respiratory: Mechanically ventilated Cardiovascular/Chest: Regular rate and rhythm. Peripheral Pulses: 2+ Radial (R). 2+ Radial (L). 2+ Pedal (R). 2+ Pedal (L) Abdominal Exam: Normal bowel sounds. Ankle Exam: 4+ pitting edema Lower extremities: 4+ pitting edema Neuro/Mental Status: Chemically sedated Thoughts/Psych: Deferred Appearance: No acute distress. Skin Exam: Normal inspection. Normal color. Warm and dry. Labs/Diagnostic Data Labs Test 04/09/25 07:47 04/09/25 07:11 04/09/25 05:27 04/09/25 02:12 Range/Units Sodium Level 130 L 136-145 mmol/L Potassium Level 5.7 *H 3.5-5.1 mmol/L Chloride Level 92 L 98-107 mmol/L Carbon Dioxide Level 25 20-31 mmol/L Anion Gap 13 5-15 Blood Urea Nitrogen 105 *H 9-23 mg/dL Creatinine 2.30 H 0.550-1.02 mg/dL Glomerular Filtration Rate Calc 24 >90 mL/min BUN/Creatinine Ratio 45.7 H 10.0-20.0 Serum Glucose 121 H 74-106 mg/dL Calcium Level 9.8 8.7-10.4 mg/dL Total Bilirubin 6.5 H 0.2-1.0 mg/dL Aspartate Amino Transferase (AST) 438 H 13-40 U/L Alanine Aminotransferase (ALT) 307 H 7-40 U/L Alkaline Phosphatase 829 H 46-116 U/L Total Protein 5.2 L 5.7-8.2 g/dL Albumin 3.2 3.2-4.8 g/dL Blood Gas Specimen Type Arterial Blood Gas Sample Site Left radial Blood Gas Patient Temperature 37.0 Arterial Blood Date Drawn [id number] Arterial Blood pH 7.482 H 7.350-7.450 Arterial Blood Partial Pressure CO2 31.0 L 32.0-45.0 mmHg Arterial Blood Partial Pressure O2 109.4 H 83.0-108.0 mmHg Arterial Blood HCO3 22.7 21.0-28.0 mmol/L Arterial Blood Oxygen Saturation 98.8 H 94.0-98.0 % Arterial Blood Base Excess 0.3 -2.0-3.0 mmol/L Arterial Blood Oxyhemoglobin 96.6 94.0-98.0 % Arterial Blood Carboxyhemoglobin 1.6 H 0.5-1.5 % Arterial Blood Methemoglobin 0.6 0.0-1.5 % Joe Test Modified Blood Gas Total Hemoglobin 16.30 H 12.0-16.0 g/dL Blood Gas Set Respiration Rate 20.0 Blood Gas Modality Vent - ac FiO2 % 55.0 Blood Gas Tidal Volume 450.0 Blood Gas PEEP or CPAP 5.0 POC Glucose 116 H 70-106 mg/dl White Blood Count 14.4 H 4.4-10.8 10^3/uL Red Blood Count 5.37 H 4.0-5.20 10^6/uL Hemoglobin 16.0 12.2-16.2 g/dL Hematocrit 47.4 H 36.0-46.0 % Mean Corpuscular Volume 88.2 80.0-100.0 fL Mean Corpuscular Hemoglobin 29.8 28.0-32.0 pg Mean Corpuscular Hemoglobin Concent 33.8 32.0-36.0 g/dL Red Cell Distribution Width 19.3 H 11.8-14.3 % Platelet Count 102 L 140-450 10^3/uL Mean Platelet Volume 8.7 6.9-10.8 fL Neutrophils (%) (Auto) 92.6 H 37.0-80.0 % Lymphocytes (%) (Auto) 1.5 L 10.0-50.0 % Monocytes (%) (Auto) 5.6 0.0-12.0 % Eosinophils (%) (Auto) 0.0 0.0-7.0 % Basophils (%) (Auto) 0.3 0.0-2.0 % Neutrophils # (Auto) 13.3 H 1.6-8.6 10 ^3/uL Lymphocytes # (Auto) 0.2 L 0.4-5.4 10 ^3/uL Monocytes # (Auto) 0.8 0-1.3 10 ^3/uL Eosinophils # (Auto) 0 0-0.8 10 ^3/uL Basophils # (Auto) 0 0-0.2 10 ^3/uL Nucleated Red Blood Cells 2.1 % Prothrombin Time 15.2 H 9.3-11.8 sec Prothrombin Time INR 1.49 H 0.9-1.15 Activated Partial Thromboplast Time 31.5 24.5-34.5 SEC D-Dimer, Quantitative 14.67 H 0.0-0.49 mg/L FEU Test 04/08/25 23:38 04/08/25 23:20 04/08/25 21:38 04/08/25 21:12 Range/Units Blood Gas Spontaneous Rate 20 Blood Gas Spontaneous Tidal Volume 471 Blood Gas Inspiratory Pressure 27.0 Bl Gas Inspiratory/Expiratory Ratio 1:2 Troponin I High Sensitivity 416 *H </=34 ng/L Differential Total Cells Counted 100.0 100 Neutrophils % (Manual) 88 H 37.0-80.0 Band Neutrophils % (Manual) 2 Lymphocytes % (Manual) 2 L 10.0-50.0 Monocytes % (Manual) 8 0-12 Eosinophils % (Manual) 0 0-7 Basophils % (Manual) 0 0.0-2.0 Metamyelocytes % (manual) 0 Myelocytes % (Manual) 0 Promyelocytes % (Manual) 0 Blast Cells % (Manual) 0 Reactive Lymphocytes 0 Platelet Estimate Decreased Anisocytosis (manual) Moderate [place] Cells Moderate Lactic Acid Level 3.4 *H 0.4-2.0 mmol/L Urine Color Dark-yellow Yellow Urine Clarity Turbid H Clear Urine pH 5.0 5.0-9.0 Urine Specific [place] 1.017 1.001-1.035 Urine Protein 1+ H Negative Urine Ketones Trace Negative Urine Blood Negative Negative /uL Urine Nitrite Negative Negative Urine Bilirubin 1+ H Negative Urine Urobilinogen 2 H Negative mg/dL Urine Leukocyte Esterase Negative Negative /uL Urine RBC 2 0 - 4 /hpf Urine Microscopic WBC 3 0-5 /HPF Urine Squamous Epithelial Cells Few <5 /hpf Urine Amorphous Crystals Few None Seen /hpf Urine Bacteria None seen None Seen /hpf Urine Hyaline Casts Mod 0 - 2 /lpf Urine Mucus Few None Seen Urine Glucose Trace Normal mg/dL Test 04/08/25 20:15 04/08/25 19:42 Range/Units Blood Gas Liter Flow 4.00 Blood Gas Critical Value Read Back Yes Blood Gas Notified Whom catie Curry Blood Gas Notified Time [id number] Blood Gas Notified By elizabeth Cast B-Type Natriuretic Peptide 392.97 0-100 pg/mL Assessment Hypotension in the setting of septic shock Pericardial effusion, rule out cardiac tamponade NSTEMI, type 2 secondary to above Acute hypoxic respiratory failure Acute kidney injury Hyperkalemia History of stage IV breast cancer (HER 2+) Metastatic disease Transaminitis Obesity Plan/Recommendation We will continue with the following plan/recommendations (): Case discussed with Dr. Cardoso. We will obtain a transthoracic echocardiogram to evaluate cardiac function and reassess pericardial effusion. Closely monitor for signs and symptoms of tamponade. In the meantime, continue vasopressors for hemodynamic support with quad strength concentration. The patient is in septic shock with severe multiorgan failure. Continue with close cardiac surveillance. Prognosis likely poor. Consider goals of care with family. Further recommendations per clinical course and progression. Thank you for allowing us to care for this patient. Please call with any questions or concerns. Critical care time spent:44 minutes This medical document was created using an electronic medical record system with voice recognition software and computerized dictation system. Although this document has been carefully reviewed, there might still be some phonetic and typographical errors. Occasional wrong-word or ``sound-alike substitutions may have occurred due to the inherent limitations of voice recognition software. These areas are purely typographical due to imperfections of the software prog kanwal and do not reflect any compromise in the patient's medical care. Please read the chart carefully and recognize, using context, where these substitutions have occurred. Plan discussed with: Other (Bedside RN and patient's brother) NYHA Physical activity limitations: NA Date of Service: Apr 09, 2025 Billing Provider: SILVIO JIMÉNEZ Cardiology Common Codes: 96205-TBOZZRE INP/OBS CARE (High) Cardiology Consultation Codes: 74635-[id number] CONSULT <45MIN TERESO CARDOSO MD 04/09/25 1251: Family History: Arthritis G8 MOTHER Cardiovascular disease G8 MOTHER Diabetes mellitus G8 FATHER G8 BROTHER Hypertension G8 MOTHER Allergies: Coded Allergies: Cephalexin (Verified Allergy, Unknown, 03/09/25) Latex (Verified Allergy, Unknown, 03/09/25) Uncoded Allergies: HEAT (Allergy, Unknown, 03/09/25) SUNSHINE (Allergy, Unknown, 03/09/25) Home Meds Active Scripts Oxymetazoline Hcl (Nasal Dennis Extra Moistur) 0.05 % Spr, 0.05 % NA TID for 30 Days, #2 SPRAY Prov:ROSE AGUILAR [facility] 03/13/25 Acetaminophen (Tylenol) 325 Mg Tb, 325 MG PO TID for 5 Days, #15 TAB Prov:ROSE AGUILAR [facility] 03/13/25 Levofloxacin Hemihydrate (LEVOFLOXACIN) 750 Mg Tab, 750 MG PO DAILY for 10 Days, #10 TAB Prov:ROSE AGUILAR [facility] 03/13/25 Plan/Recommendation CRITICALLY ILL PATIENT, SEEN WITH CV TEAM, AND RN AND DISCUSSED WITH DR MONTERO PT HAS SIGNIFICANT PERICARDIAL EFFUSION WITH LOT OF FIBRINOUS MATERIAL STAGE IV CANCER, SURPRISINGLY HER ONC AT [facility] WAS DISCUSSING NEW C HEMO REGIMENS THIS WEEK GIVEN HER CLINICAL STATUS PT IS IN MULTIORGAN FAILURE GRIM PROGNOSIS, SPOKE TO SON CONSIDER TX TO [facility] FOR POSSIBLE PERICARDIAL WINDOW IF PT QUALIFIES, PT IS AT HIGH RISK FOR DECOMPENSATION AND , SHES COAGULOPATHIC D DIMER VERY HIGH, AT RISK FOR VTE? EXTENSIVE METS THROUGHOUT FAMILY WILL NOT ACCEPT BLOOD PRODUCTS EXCEEDINGLY HIGH RISK PT AT THIS HOSPITAL, unsure feasibility of any transfer on multiple pressors 90 mins critical care time spent Plan discussed with: Other (rn, MD attending, brother ) SILVIO JIMÉNEZ Apr 09, 2025 09:50 TERESO CARDOSO MD Apr 09, 2025 12:51
[2025-04-09] MEDS: cefTRIAXone 1GM/50ML D5W 50 ML IV SCH (10:33)
[2025-04-09] MEDS: SODIUM CHLORIDE 0.9% 1,000 ML IV ONE ×3 (10:33→14:30)
--- NOTE | 2025-04-09 10:35 | DVHPN2 ---
Assessment/Plan Assessment/Plan ICU note 54 F w breast cancer (HER2+) s/p lumpectomy and LND on chemo in [facility], with brain mets s/p rad, intubated and mechanically ventilated for airway protection. seen today, titrate down phenyl and increase levo to maintain MAP. POCUS done, mass seen around the pericardial space, likely mets. give IVF. admit to ICU physical exam intubated, sedated on mechanical vent PERRLA mechanical breath sounds, coarse crackles distant heart sound abdomen soft no LE edema labs ekg imaging reviewed POCUS done, hyperdynamic LV, plethoric IVC, moderate pericardial effusion, mass seen around pericardial space, RV and RA movements during the cardiac cycle difficult to observe iso tachy and device limitation, tamponade suspicion mod to high assessment and plan acute hypoxic RF req mech vent septic vs obstructive shock hyperkalemia SHELIA likely ATN transaminitis likely shock liver type 2 HI demand ischemia HFpEF? pericardial eff, cannot r/o tamponade PLEF breast cancer s/p lumpectomy, LND, chemorad likely liver, lung and pericardial mets pneumonia gp vs gn c/w levophed, maintain MAP >65 IV boluses c/w mechanical vent c/w empiric ceft and azithro follow cultures trend cr, lft strict i/o stat cardio consult plan for a line diet hold dvt ppx hold gi ppx pepcid full code condition critical prognosis grim 90 minutes critical care time rendered Plan discussed with: Patient Date of Service: Apr 09, 2025 Billing Provider: KYLEIGH MONTERO MD Common Visit Codes: 78285-[id number] CARE 30-74 MIN, 93717-[id number] CARE-EACH +30MIN KYLEIGH MONTERO MD Apr 09, 2025 10:35
[2025-04-09] MEDS: FUROSEMIDE 40 MG/4 ML VIAL IV SCH (10:39)
--- NOTE | 2025-04-09 10:58 | DVHINCON2 ---
Date of service: Apr 09, 2025 Referring Physician Markus Adan NP Reason for Consultation SHELIA History of Present Illness Mrs. Kim is a 54-year-old female with known history of stage IV breast cancer with metastatic disease to the lungs who presented for further evaluation and management of weakness and altered mental status. Her evaluation was notable for profound hypotension, tachycardia requiring vasopressor support, she required intubation mechanical ventilatory support. Imaging notable for bilateral pleural effusion than [id number] pericardial effusion. She is seen in the emergency department all the history was obtained through the chart. Lab data initially notable for hyperkalemia and significant azotemia. Serum creatinine was normal proximally one month ago. She has received medical management of her hyperkalemia and volume expansion. Past Medical History Stage IV breast cancer with metastatic disease to the lungs Allergies: Coded Allergies: Cephalexin (Verified Allergy, Unknown, 03/09/25) Latex (Verified Allergy, Unknown, 03/09/25) Uncoded Allergies: HEAT (Allergy, Unknown, 03/09/25) SUNSHINE (Allergy, Unknown, 03/09/25) Home Meds Active Scripts Oxymetazoline Hcl (Nasal [place] Extra Moistur) 0.05 % Spr, 0.05 % NA TID for 30 Days, #2 SPRAY Prov:ROSE AGUILAR 03/13/25 Acetaminophen (Tylenol) 325 Mg Tb, 325 MG PO TID for 5 Days, #15 TAB Prov:ROSE AGUILAR 03/13/25 Levofloxacin Hemihydrate (LEVOFLOXACIN) 750 Mg Tab, 750 MG PO DAILY for 10 Days, #10 TAB Prov:ROSE AGUILAR [facility] 03/13/25 Current Medications Current Medications Medications (Trade) Dose Ordered Sig/Mitali Route PRN Reason Start Time Stop Time Status Last Admin Levalbuterol HCl (Xopenex Medneb) 1.25 mg Q6HR NEB 04/09/25 00:00 04/09/25 07:03 Norepinephrine Bitartrate 250 ml @ 3.75 mls/hr Q24H IV 04/08/25 20:15 04/09/25 07:01 Famotidine (Pepcid Injection) 10 mg Q12HR IV 04/08/25 22:00 04/09/25 10:39 Vancomycin HCl 0 ml @ 0 mls/hr UD IV 04/08/25 22:00 Ceftriaxone Sodium 50 ml @ 100 mls/hr DAILY@09 IV 04/09/25 09:00 04/09/25 10:33 Lorazepam (Ativan Inj) 1 mg Q6HP PRN IV ANXIETY 04/08/25 22:00 Furosemide (Lasix Injection) 40 mg DAILY IV 04/09/25 10:00 04/09/25 10:39 Ondansetron HCl (Zofran) 4 mg Q4HP PRN IV NAUSEA / VOMITING 04/08/25 22:00 Acetaminophen (Tylenol Suppository) 650 mg Q6HP PRN RI PAIN SCALE 1-3 OR TEMP>100.4 04/08/25 22:15 Nitroglycerin (Ntrostat Sublingual) 0.4 mg Q5MINP PRN SL FOR CHEST PAIN 04/08/25 22:30 Morphine Sulfate 2 mg Q30M PRN IV FOR CHEST PAIN 04/08/25 22:30 Phenylephrine HCl 250 ml @ 30 mls/hr Q8H20M IV 04/08/25 22:30 04/09/25 05:42 Midazolam HCl 50 ml @ 1 mls/hr Q24H IV 04/08/25 22:30 04/09/25 03:28 Vasopressin 20 units/Sodium Chloride 100 ml @ 9 mls/hr Q11H7M IV 04/09/25 08:45 Phenylephrine HCl 80 mg/Sodium Chloride 250 ml @ 7.5 mls/hr Q24H IV 04/09/25 10:15 Norepinephrine Bitartrate 32 mg/ Sodium Chloride 250 ml @ 0.938 mls/ hr Q24H IV 04/09/25 10:15 Family History: Arthritis G8 MOTHER Cardiovascular disease G8 MOTHER Diabetes mellitus G8 FATHER G8 BROTHER Hypertension G8 MOTHER Review of Systems Unable to be obtained due to patient's critical status H&P Exam Vital Signs/I&O Vital Sign Date Time Temp Pulse Resp B/P (MAP) Pulse Ox O2 Delivery O2 Flow Rate FiO2 04/09/25 10:39 97/71 04/09/25 09:17 118 20 97 55 04/09/25 08:16 98.6 98.6 04/09/25 08:00 Mechanical Ventilator+ 04/08/25 20:16 10 Intake and Output 04/08/25 04/09/25 19:00 07:00 Intake Total 418.35 ml Output Total 350 ml Balance 68.35 ml Intake IV Total 418.35 ml Output Urine Total 350 ml Physical Exam Gen: Intubated, chronically ill-appearing heent: + ET tube lungs: Coarse breath sounds cvs: Tachycardic abd: soft, bowel sounds audible ext: + edema skin: no rash neuro: Sedated Labs/Diagnostic Data Labs/Diagnostic Data Laboratory Tests Test 04/09/25 07:47 04/09/25 07:11 04/09/25 05:27 04/09/25 02:12 Range/Units Sodium Level 130 L 126 L 136-145 mmol/L Potassium Level 5.7 *H 5.9 *H 3.5-5.1 mmol/L Chloride Level 92 L 91 L 98-107 mmol/L Carbon Dioxide Level 25 23 20-31 mmol/L Anion Gap 13 12 5-15 Blood Urea Nitrogen 105 *H 100 *H 9-23 mg/dL Creatinine 2.30 H 2.25 H 0.550-1.02 mg/dL Glomerular Filtration Rate Calc 24 25 >90 mL/min BUN/Creatinine Ratio 45.7 H 44.4 H 10.0-20.0 Serum Glucose 121 H 118 H 74-106 mg/dL Calcium Level 9.8 8.8 8.7-10.4 mg/dL Total Bilirubin 6.5 H 6.0 H 0.2-1.0 mg/dL Aspartate Amino Transferase (AST) 438 H 403 H 13-40 U/L Alanine Aminotransferase (ALT) 307 H 290 H 7-40 U/L Alkaline Phosphatase 829 H 736 H 46-116 U/L Total Protein 5.2 L 5.3 L 5.7-8.2 g/dL Albumin 3.2 3.0 L 3.2-4.8 g/dL Blood Gas Specimen Type Arterial Blood Gas Sample Site Left radial Blood Gas Patient Temperature 37.0 Arterial Blood Date Drawn [id number] Arterial Blood pH 7.482 H 7.350-7.450 Arterial Blood Partial Pressure CO2 31.0 L 32.0-45.0 mmHg Arterial Blood Partial Pressure O2 109.4 H 83.0-108.0 mmHg Arterial Blood HCO3 22.7 21.0-28.0 mmol/L Arterial Blood Oxygen Saturation 98.8 H 94.0-98.0 % Arterial Blood Base Excess 0.3 -2.0-3.0 mmol/L Arterial Blood Oxyhemoglobin 96.6 94.0-98.0 % Arterial Blood Carboxyhemoglobin 1.6 H 0.5-1.5 % Arterial Blood Methemoglobin 0.6 0.0-1.5 % Joe Test Modified Blood Gas Total Hemoglobin 16.30 H 12.0-16.0 g/dL Blood Gas Set Respiration Rate 20.0 Blood Gas Modality Vent - ac FiO2 % 55.0 Blood Gas Tidal Volume 450.0 Blood Gas PEEP or CPAP 5.0 POC Glucose 116 H 70-106 mg/dl White Blood Count 14.4 H 4.4-10.8 10^3/uL Red Blood Count 5.37 H 4.0-5.20 10^6/uL Hemoglobin 16.0 12.2-16.2 g/dL Hematocrit 47.4 H 36.0-46.0 % Mean Corpuscular Volume 88.2 80.0-100.0 fL Mean Corpuscular Hemoglobin 29.8 28.0-32.0 pg Mean Corpuscular Hemoglobin Concent 33.8 32.0-36.0 g/dL Red Cell Distribution Width 19.3 H 11.8-14.3 % Platelet Count 102 L 140-450 10^3/uL Mean Platelet Volume 8.7 6.9-10.8 fL Neutrophils (%) (Auto) 92.6 H 37.0-80.0 % Lymphocytes (%) (Auto) 1.5 L 10.0-50.0 % Monocytes (%) (Auto) 5.6 0.0-12.0 % Eosinophils (%) (Auto) 0.0 0.0-7.0 % Basophils (%) (Auto) 0.3 0.0-2.0 % Neutrophils # (Auto) 13.3 H 1.6-8.6 10 ^3/uL Lymphocytes # (Auto) 0.2 L 0.4-5.4 10 ^3/uL Monocytes # (Auto) 0.8 0-1.3 10 ^3/uL Eosinophils # (Auto) 0 0-0.8 10 ^3/uL Basophils # (Auto) 0 0-0.2 10 ^3/uL Nucleated Red Blood Cells 2.1 % Prothrombin Time 15.2 H 9.3-11.8 sec Prothrombin Time INR 1.49 H 0.9-1.15 Activated Partial Thromboplast Time 31.5 24.5-34.5 SEC D-Dimer, Quantitative 14.67 H 0.0-0.49 mg/L FEU Test 04/08/25 23:38 04/08/25 23:20 04/08/25 21:38 04/08/25 21:12 Range/Units Blood Gas Specimen Type Arterial Blood Gas Sample Site Left radial Blood Gas Patient Temperature 37.0 Arterial Blood Date Drawn [id number] Arterial Blood pH 7.379 7.350-7.450 Arterial Blood Partial Pressure CO2 35.5 32.0-45.0 mmHg Arterial Blood Partial Pressure O2 294.8 H 83.0-108.0 mmHg Arterial Blood HCO3 20.5 L 21.0-28.0 mmol/L Arterial Blood Oxygen Saturation 99.7 H 94.0-98.0 % Arterial Blood Base Excess -3.8 L -2.0-3.0 mmol/L Arterial Blood Oxyhemoglobin 97.7 94.0-98.0 % Arterial Blood Carboxyhemoglobin 1.1 0.5-1.5 % Arterial Blood Methemoglobin 0.9 0.0-1.5 % Joe Test Modified Blood Gas Total Hemoglobin 17.70 H 12.0-16.0 g/dL Blood Gas Set Respiration Rate 20.0 Blood Gas Modality Vent - ac Blood Gas Spontaneous Rate 20 FiO2 % 100.0 Blood Gas Tidal Volume 450.0 Blood Gas Spontaneous Tidal Volume 471 Blood Gas Inspiratory Pressure 27.0 Blood Gas PEEP or CPAP 5.0 Bl Gas Inspiratory/Expiratory Ratio 1:2 Troponin I High Sensitivity 416 *H 253 *H </=34 ng/L White Blood Count 14.1 H 4.4-10.8 10^3/uL Red Blood Count 5.66 H 4.0-5.20 10^6/uL Hemoglobin 16.8 H 12.2-16.2 g/dL Hematocrit 51.0 H 36.0-46.0 % Mean Corpuscular Volume 90.1 80.0-100.0 fL Mean Corpuscular Hemoglobin 29.8 28.0-32.0 pg Mean Corpuscular Hemoglobin Concent 33.1 32.0-36.0 g/dL Red Cell Distribution Width 19.4 H 11.8-14.3 % Platelet Count 103 L 140-450 10^3/uL Mean Platelet Volume 8.3 6.9-10.8 fL Neutrophils (%) (Auto) 37.0-80.0 % Lymphocytes (%) (Auto) 10.0-50.0 % Monocytes (%) (Auto) 0.0-12.0 % Basophils (%) (Auto) 0.0-2.0 % Neutrophils # (Auto) 1.6-8.6 10 ^3/uL Lymphocytes # (Auto) 0.4-5.4 10 ^3/uL Monocytes # (Auto) 0-1.3 10 ^3/uL Differential Total Cells Counted 100.0 100 Neutrophils % (Manual) 88 H 37.0-80.0 Band Neutrophils % (Manual) 2 Lymphocytes % (Manual) 2 L 10.0-50.0 Monocytes % (Manual) 8 0-12 Eosinophils % (Manual) 0 0-7 Basophils % (Manual) 0 0.0-2.0 Metamyelocytes % (manual) 0 Myelocytes % (Manual) 0 Promyelocytes % (Manual) 0 Blast Cells % (Manual) 0 Reactive Lymphocytes 0 Platelet Estimate Decreased Anisocytosis (manual) Moderate Sallis Cells Moderate Lactic Acid Level 3.4 *H 0.4-2.0 mmol/L Urine Color Dark-yellow Yellow Urine Clarity Turbid H Clear Urine pH 5.0 5.0-9.0 Urine Specific [place] 1.017 1.001-1.035 Urine Protein 1+ H Negative Urine Ketones Trace Negative Urine Blood Negative Negative /uL Urine Nitrite Negative Negative Urine Bilirubin 1+ H Negative Urine Urobilinogen 2 H Negative mg/dL Urine Leukocyte Esterase Negative Negative /uL Urine RBC 2 0 - 4 /hpf Urine Microscopic WBC 3 0-5 /HPF Urine Squamous Epithelial Cells Few <5 /hpf Urine Amorphous Crystals Few None Seen /hpf Urine Bacteria None seen None Seen /hpf Urine Hyaline Casts Mod 0 - 2 /lpf Urine Mucus Few None Seen Urine Creatinine 179.41 H 30.0-125.0 mg/dL Urine Sodium < 10 L 40-220 mmol/L Urine Glucose Trace Normal mg/dL Test 04/08/25 20:15 04/08/25 19:42 Range/Units Blood Gas Specimen Type Arterial Blood Gas Sample Site Left radial Blood Gas Patient Temperature 37.0 Arterial Blood Date Drawn [id number] Arterial Blood pH 7.398 7.350-7.450 Arterial Blood Partial Pressure CO2 34.6 32.0-45.0 mmHg Arterial Blood Partial Pressure O2 58.9 L 83.0-108.0 mmHg Arterial Blood HCO3 20.9 L 21.0-28.0 mmol/L Arterial Blood Oxygen Saturation 88.0 L 94.0-98.0 % Arterial Blood Base Excess -3.0 L -2.0-3.0 mmol/L Arterial Blood Oxyhemoglobin 86.5 L 94.0-98.0 % Arterial Blood Carboxyhemoglobin 1.0 0.5-1.5 % Arterial Blood Methemoglobin 0.7 0.0-1.5 % Joe Test Modified Blood Gas Total Hemoglobin 18.20 *H 12.0-16.0 g/dL Blood Gas Liter Flow 4.00 Blood Gas Modality Nasal cannula FiO2 % 36.0 Blood Gas Critical Value Read Back Yes Blood Gas Notified Whom catie Curry Blood Gas Notified Time [id number] Blood Gas Notified By Rtelizabeth Sodium Level 123 L 136-145 mmol/L Potassium Level 7.0 *H 3.5-5.1 mmol/L Chloride Level 87 L 98-107 mmol/L Carbon Dioxide Level 23 20-31 mmol/L Anion Gap 13 5-15 Blood Urea Nitrogen 93 *H 9-23 mg/dL Creatinine 2.47 H 0.550-1.02 mg/dL Glomerular Filtration Rate Calc 22 >90 mL/min BUN/Creatinine Ratio 37.7 H 10.0-20.0 Serum Glucose 116 H 74-106 mg/dL Lactic Acid Level 3.8 *H 0.4-2.0 mmol/L Calcium Level 10.7 H 8.7-10.4 mg/dL Troponin I High Sensitivity 133 *H </=34 ng/L B-Type Natriuretic Peptide 392.97 0-100 pg/mL Plan/Recommendation IMP: 1) Hemodynamically mediated SHELIA/VMN in setting of shock with multiorgan involvement. 2) CKD stage II, serum creatinine less than one approximately four weeks ago 3) stage IV breast cancer with metastatic disease to the lungs 4) hyperkalemia 5) acute hypoxemic respiratory failure 6) moderate to large pericardial effusion by CT imaging REC: - transthoracic echo to evaluate for any potential tamponade physiology - limited continued efforts at volume expansion - serial basic chemistry panels - continued medical management of hyperkalemia. - we will continue to follow closely with you. Thank you for the consultation Plan discussed with: HÉCTOR Galvin MD Apr 09, 2025 10:58
[2025-04-09] MEDS: NOREPINEPHRINE BITARTRATE 32 MG in SODIUM CHL 0.9% 218 ML IV SCH (11:30)
[2025-04-09] MEDS: PHENYLEPHRINE INJ 80 MG in SODIUM CHL 0.9% 242 ML IV SCH (11:30)
--- NOTE | 2025-04-09 12:18 | DVHSR ---
APPROVED REPORT EXAM: LIMITED Two-dimensional echocardiogram. Blood Pressure: 95/32 mmHg INDICATION Reassess Pericardial Effusion RISK FACTORS Obesity: Height: 4' 11", Weight: 170 DIMENSIONS LVDd3.7 (3.8-5.7cm)LA (2D)4.3 (1.9-4.0cm)Aortic Root (2.0-3.7cm) LVDs2.7 (2.5-4.0cm)LA (MM) (1.9-4.0cm)Aortic Cusp Exc (1.5-2.0cm) EF (%) 70.0 (55-70%)Rt. Atrium3.5 (1.9-4.0cm)Asc. Aorta cm IVSd0.8 (0.7-1.1cm)RV (D) (1.8-2.4cm) PWd1.0 (0.7-1.1cm) Mitral Valve MitralMitral Stenosis E/A ratio0.02D MVAcm2 Other Information Quality : Technically LimitedRhythm : Technically limited study due to body habitus, patient position and on vent. Conclusion lvef 60% moderate to large pericardail effusion that is circumferential, there is a lot of fibrinous material measuring almost 1 cm in thickness, there is no resp variation suggestive of tamponade , there is a bounce of the entire heart the fibrinous material makes a percutaneous attempt at drainage much more difficult,metastatic effusi on
[2025-04-09] MEDS: phytonadione 10 MG in SODIUM CHL 0.9% 50 ML IV ONE (14:38)
[2025-04-09] MEDS: phytonadione 5 MG in SODIUM CHL 0.9% 50 ML IV ONE (15:15)
[2025-04-09] MEDS: ROCURONIUM 10MG/ML 10ML VIAL IV ONE ×2 (15:47→15:49)
[2025-04-09] MEDS: EPINEPHrine HCL 1 MG/10 ML SYRG ONE (16:08)
[2025-04-09] MEDS: ATROPINE SULF 1 MG/10ml SYR ONE (16:08)
[2025-04-09] MEDS: LIDOCAINE 2%HCL (LOCAL ANESTH.) INJ 20ML MDV ONE (16:09)
--- NOTE | 2025-04-09 17:53 | DVHOP ---
DATE OF SURGERY: 04/09/2025 PREOPERATIVE DIAGNOSES: Tamponade physiology, large pericardial effusion, shock. POSTOPERATIVE DIAGNOSES: Tamponade physiology, large pericardial effusion, shock. PROCEDURES PERFORMED: Ultrasound-guided pericardiocentesis and implantation of pericardial drain with fluid removal and sedation. PROCEDURE IN DETAIL: The patient's family signed informed consent, understanding risks, benefits, and alternatives of procedure. The patient is at the highest possible risk for cardiovascular complications. The patient is in shock, on multiple pressors, was severely hypotensive, refused transfer via helicopter to outside facility. The patient is coagulopathic. Family refuses any blood products at this point. High risk for cardiovascular collapse and . Following the procedure, the patient likely will get into worsening shock. Family wishes to proceed. The patient was brought urgently via labor utilization superintendent and prepped in sterile fashion. The patient was in about a 20-30 degree angulation for the procedure. I administered 8 mL of 2% lidocaine to the subcostal region in the chest wall. With ultrasound-guided access, I initially performed an ultrasound identifying the pericardial fluid. There is a lot of thrombus noted as well within that fluid. With an 18-gauge Cook needle, I successfully entered the pericardial space with only 1 needle stick and was able to wire successfully. I confirmed my wire location in the pericardial space with ultrasound guidance as well as fluoroscopically. At this point, I placed a pericardial drain which comes from a pericardiocentesis kit into the pericardial space and approximately 600 mL of serosanguineous fluid was removed successfully. At this point, the drain was sutured in place and placed with the bag on it to gravity. After successfully suturing it in place, a repeat ultrasound was done with our electronics technology instructor, Cheryl, showing near complete resolution of the pericardial effusion and normal function and normal contraction of the right ventricle at this point. The patient tolerated the procedure. The patient's heart rate stayed in the 130s throughout the procedure. Blood pressure did improve from the systolic 80s to 105 systolic blood pressure at the termination of the procedure. The patient will be transferred to the ICU for further care. CONCLUSION: Successful ultrasound-guided emergency pericardiocentesis with 600 mL of serosanguineous fluid removed. PLAN: * Repeat ultrasound on 04/10/2025. * Consider removal of pericardial drain if indicated. * Follow up pericardial studies for malignancy. * Continue hemodynamic support per primary team. Ronen Dewitt MD CM/SUNDAY TID: [id number] RECEIPT: [id number]
[2025-04-09 18:41] LABS: Chloride 99 mmol/L (98-107)
[2025-04-09 18:42] LABS: Anion Gap 11 (5-15); Calcium 9.0 mg/dL (8.7-10.4); Carbon Dioxide 22 mmol/L (20-31)
[2025-04-09 18:46] LABS: Potassium 5.4 mmol/L (3.5-5.1); Sodium 132 mmol/L (136-145)
[2025-04-09 18:47] LABS: BUN/Creatinine Ratio 40.8 (10.0-20.0)
[2025-04-09 18:49] LABS: Glucose 119 mg/dL (74-106)
[2025-04-09 18:51] LABS: Blood Urea Nitrogen 80 mg/dL (9-23)
[2025-04-09] MEDS: VASOPRESSIN 20 UNIT/ML ONE (20:40)
[2025-04-09 21:40] LABS: Hematocrit 52.0 % (36.0-46.0); Hemoglobin 17.1 g/dL (12.2-16.2); Mean Corpuscular Hemoglobin 29.2 pg (28.0-32.0); Mean Corpuscular Volume 88.6 fL (80.0-100.0); Nucleated Red Blood Cells % 2.7 %
[2025-04-09 21:43] LABS: Base Excess -4.8 mmol/L (-2.0-3.0)
[2025-04-09 21:43] LABS: Anion Gap 12 (5-15); BUN/Creatinine Ratio 44.6 (10.0-20.0); Calcium 9.0 mg/dL (8.7-10.4); Carbon Dioxide 23 mmol/L (20-31); Chloride 99 mmol/L (98-107)
[2025-04-09 21:45] LABS: Alanine Aminotransferase 275 U/L (7-40); Albumin 3.1 g/dL (3.2-4.8); Alkaline Phosphatase 846 U/L (46-116); Bilirubin, Total 6.8 mg/dL (0.2-1.0); Glucose 117 mg/dL (74-106); Potassium 5.3 mmol/L (3.5-5.1); Sodium 134 mmol/L (136-145); Total Protein 5.3 g/dL (5.7-8.2)
[2025-04-09 21:47] LABS: Blood Urea Nitrogen 87 mg/dL (9-23); Lactic Acid w/Reflex 2.3 mmol/L (0.4-2.0)
[2025-04-09] MEDS: MEROPENEM 1GM IVPB 50 ML IV SCH (22:01)
--- NOTE | 2025-04-09 22:07 | DVHINCON2 ---
Date of service: Apr 08, 2025 Referring Physician DONAL Adan Reason for Consultation Acute hypoxic respiratory failure requiring mechanical ventilator, pleural effusions and pulmonary edema. History of Present Illness A 54-year-old woman with past medical history of stage IV breast cancer with mets to the lungs, UTIs, pleural and pericardial effusions who presented to the ED on 04/08/25 with complaint of shortness of breath. Patient reported symptoms started while she was undergoing a CT scan, unable to lie flat for the scan. Pt also noted worsening leg swelling over the past week, orthopnea, dyspnea on exertion, increased work of breathing, getting worse that prompted this visit. She is currently on chemotherapy ([facility]), underwent thoracentesis. Cardio logy recommended conservative management of the pericardial effusion. Patient was discharged from our facility on March 13 with similar symptoms. Workup in ED showed WBC 14.1, hemoglobin 16.8, hematocrit 51.0, platelets 103. Sodium 123, potassium 7.0, BUN 93, creatinine 2.47, glucose 116, calcium 10.7, troponin 133, lactic acid 3.8. Blood pressure 83/49, heart rate 148, temperature 99.2 F, O2 saturation 90% on simple mask. Chest x-ray revealing mild cardiomegaly, pulmonary vascular congestion, and small bilateral pleural effusions. Patient was admitted for further care and pulmonary consultation is requested for evaluation and management of acute hypoxic respiratory failure requiring mechanical ventilator, pleural effusions and pulmonary edema. Review of Systems: Unable to obtain d/t intubated status.. Past Medical History Cancer (Stage IV breast cancer with lung metastases, pleural and pericardial effusions), UTIs Past Surgical History Thoracentesis Medications: Reviewed. Allergies: cephalexin latex Family History No family history of premature CAD. No family history of lung disorders. Social History: Nonsmoker. No alcohol or illicit drug use. Family History: Arthritis G8 MOTHER Cardiovascular disease G8 MOTHER Diabetes mellitus G8 FATHER G8 BROTHER Hypertension G8 MOTHER Allergies: Coded Allergies: Cephalexin (Verified Allergy, Unknown, 03/09/25) Latex (Verified Allergy, Unknown, 03/09/25) Uncoded Allergies: HEAT (Allergy, Unknown, 03/09/25) SUNSHINE (Allergy, Unknown, 03/09/25) Home Meds Active Scripts Oxymetazoline Hcl (Nasal [place] Extra Moistur) 0.05 % Spr, 0.05 % NA TID for 30 Days, #2 SPRAY Prov:ROSE AGUILAR RESIDENT 03/13/25 Acetaminophen (Tylenol) 325 Mg Tb, 325 MG PO TID for 5 Days, #15 TAB Prov:ROSE AGUILAR RESIDENT 03/13/25 Levofloxacin Hemihydrate (LEVOFLOXACIN) 750 Mg Tab, 750 MG PO DAILY for 10 Days, #10 TAB Prov:ROSE AGUILAR 03/13/25 Current Medications Current Medications Medications (Trade) Dose Ordered Sig/Mitali Route PRN Reason Start Time Stop Time Status Last Admin Levalbuterol HCl (Xopenex Medneb) 1.25 mg Q6HR NEB 04/09/25 00:00 04/09/25 18:59 Famotidine (Pepcid Injection) 10 mg Q12HR IV 04/08/25 22:00 04/09/25 10:39 Vancomycin HCl 0 ml @ 0 mls/hr UD IV 04/08/25 22:00 Ceftriaxone Sodium 50 ml @ 100 mls/hr DAILY@09 IV 04/09/25 09:00 04/09/25 20:52 DC 04/09/25 10:33 Lorazepam (Ativan Inj) 1 mg Q6HP PRN IV ANXIETY 04/08/25 22:00 04/09/25 20:52 DC Furosemide (Lasix Injection) 40 mg DAILY IV 04/09/25 10:00 04/09/25 10:39 Ondansetron HCl (Zofran) 4 mg Q4HP PRN IV NAUSEA / VOMITING 04/08/25 22:00 04/09/25 20:52 DC Acetaminophen (Tylenol Suppository) 650 mg Q6HP PRN PA PAIN SCALE 1-3 OR TEMP>100.4 04/08/25 22:15 Nitroglycerin (Ntrostat Sublingual) 0.4 mg Q5MINP PRN SL FOR CHEST PAIN 04/08/25 22:30 04/09/25 20:52 DC Morphine Sulfate 2 mg Q30M PRN IV FOR CHEST PAIN 04/08/25 22:30 04/09/25 20:52 DC Phenylephrine HCl 250 ml @ 30 mls/hr Q8H20M IV 04/08/25 22:30 04/09/25 12:40 DC 04/09/25 05:42 Midazolam HCl 50 ml @ 1 mls/hr Q24H IV 04/08/25 22:30 04/09/25 03:28 Vasopressin 20 units/Sodium Chloride 100 ml @ 9 mls/hr Q11H7M IV 04/09/25 08:45 04/09/25 20:30 Phenylephrine HCl 80 mg/Sodium Chloride 250 ml @ 7.5 mls/hr Q24H IV 04/09/25 10:15 04/09/25 11:30 Norepinephrine Bitartrate 32 mg/ Sodium Chloride 250 ml @ 0.938 mls/ hr Q24H IV 04/09/25 10:15 04/09/25 11:30 Fentanyl Citrate 250 ml @ 2.5 mls/hr Q24H IV 04/09/25 20:30 Hydrocortisone Sodium Succinate (Solu-CORTEF INJECTION) 50 mg Q6HR IV 04/10/25 00:00 Meropenem 50 ml @ 17 mls/hr Q12HR IV 04/09/25 22:00 Vital Signs Vital Signs Date Time Temp Pulse Resp B/P (MAP) Pulse Ox O2 Delivery O2 Flow Rate FiO2 04/09/25 21:30 134 20 116/48 (70) 93 04/09/25 20:05 100 04/09/25 20:00 98.4 98.4 04/09/25 20:00 Mechanical Ventilator+ 04/08/25 20:16 10 Physical Exam Gen.: Patient lying in bed in medical ICU. Sedated, intubated on mechanical ventilator. Head: Normocephalic, atraumatic. Eyes: PERRLA. Ears: Normal external anatomy. Throat: Endotracheal tube and orogastric tube in place. Neck: Supple, trachea midline. Chest: Transmitted breath sounds bilaterally. Decreased air entry bilaterally. No wheezing. Bibasilar crackles. Cardiovascular: Positive S1, positive S2. Regular rate and rhythm. Abdomen: Positive bowel sounds in all 4 quadrants. Soft, nontender, nondistended. : Kim in place. Normal external genitalia. Rectal: Deferred. Skin: Warm, dry. Intact. Extremities: 2+ radial pulses bilaterally. No lower extremity edema. Neuro: Sedated. Labs/Diagnostic Data Labs Test 04/09/25 21:32 04/09/25 21:16 04/09/25 17:15 04/09/25 05:27 Range/Units Blood Gas Specimen Type Arterial Blood Gas Sample Site Left radial Blood Gas Patient Temperature 37.0 Arterial Blood Date Drawn [id number] Arterial Blood pH 7.328 L 7.350-7.450 Arterial Blood Partial Pressure CO2 40.6 32.0-45.0 mmHg Arterial Blood Partial Pressure O2 84.1 83.0-108.0 mmHg Arterial Blood HCO3 20.8 L 21.0-28.0 mmol/L Arterial Blood Oxygen Saturation 94.8 94.0-98.0 % Arterial Blood Base Excess -4.8 L -2.0-3.0 mmol/L Arterial Blood Oxyhemoglobin 93.6 L 94.0-98.0 % Arterial Blood Carboxyhemoglobin 0.8 0.5-1.5 % Arterial Blood Methemoglobin 0.5 0.0-1.5 % Joe Test Yes Blood Gas Total Hemoglobin 17.80 H 12.0-16.0 g/dL Blood Gas Set Respiration Rate 16.0 Blood Gas Modality Vent - ac FiO2 % 100.0 Blood Gas Tidal Volume 400.0 Blood Gas PEEP or CPAP 5.0 White Blood Count 20.5 #H 4.4-10.8 10^3/uL Red Blood Count 5.86 H 4.0-5.20 10^6/uL Hemoglobin 17.1 H 12.2-16.2 g/dL Hematocrit 52.0 H 36.0-46.0 % Mean Corpuscular Volume 88.6 80.0-100.0 fL Mean Corpuscular Hemoglobin 29.2 28.0-32.0 pg Mean Corpuscular Hemoglobin Concent 33.0 32.0-36.0 g/dL Red Cell Distribution Width 19.4 H 11.8-14.3 % Platelet Count 71 L 140-450 10^3/uL Mean Platelet Volume 8.1 6.9-10.8 fL Neutrophils (%) (Auto) 91.8 H 37.0-80.0 % Lymphocytes (%) (Auto) 0.9 L 10.0-50.0 % Monocytes (%) (Auto) 6.9 0.0-12.0 % Eosinophils (%) (Auto) 0.1 0.0-7.0 % Basophils (%) (Auto) 0.3 0.0-2.0 % Neutrophils # (Auto) 18.8 H 1.6-8.6 10 ^3/uL Lymphocytes # (Auto) 0.2 L 0.4-5.4 10 ^3/uL Monocytes # (Auto) 1.4 H 0-1.3 10 ^3/uL Eosinophils # (Auto) 0 0-0.8 10 ^3/uL Basophils # (Auto) 0.1 0-0.2 10 ^3/uL Nucleated Red Blood Cells 2.7 % Sodium Level 134 L 136-145 mmol/L Potassium Level 5.3 H 3.5-5.1 mmol/L Chloride Level 99 98-107 mmol/L Carbon Dioxide Level 23 20-31 mmol/L Anion Gap 12 5-15 Blood Urea Nitrogen 87 *H 9-23 mg/dL Creatinine 1.95 H 0.550-1.02 mg/dL Glomerular Filtration Rate Calc 30 >90 mL/min BUN/Creatinine Ratio 44.6 H 10.0-20.0 Serum Glucose 117 H 74-106 mg/dL Lactic Acid Level 2.3 *H 0.4-2.0 mmol/L Calcium Level 9.0 8.7-10.4 mg/dL Total Bilirubin 6.8 H 0.2-1.0 mg/dL Aspartate Amino Transferase (AST) 358 H 13-40 U/L Alanine Aminotransferase (ALT) 275 H 7-40 U/L Alkaline Phosphatase 846 H 46-116 U/L Total Protein 5.3 L 5.7-8.2 g/dL Albumin 3.1 L 3.2-4.8 g/dL Body Fluid Source Pericardial fluid Body Fluid WBC (Manual) 522 H 0-200 CUMM Body Fluid RBC (Manual) 509346 H 0-2000 CUMM Body Fluid Mononuclear Cells 69 % Body Fluid Polymorphonuclear Cells 31 H 0-25 % POC Glucose 116 H 70-106 mg/dl Test 04/09/25 02:12 04/08/25 23:38 04/08/25 23:20 04/08/25 21:38 Range/Units Prothrombin Time 15.2 H 9.3-11.8 sec Prothrombin Time INR 1.49 H 0.9-1.15 Activated Partial Thromboplast Time 31.5 24.5-34.5 SEC D-Dimer, Quantitative 14.67 H 0.0-0.49 mg/L FEU Blood Gas Spontaneous Rate 20 Blood Gas Spontaneous Tidal Volume 471 Blood Gas Inspiratory Pressure 27.0 Bl Gas Inspiratory/Expiratory Ratio 1:2 Troponin I High Sensitivity 416 *H </=34 ng/L Differential Total Cells Counted 100.0 100 Neutrophils % (Manual) 88 H 37.0-80.0 Band Neutrophils % (Manual) 2 Lymphocytes % (Manual) 2 L 10.0-50.0 Monocytes % (Manual) 8 0-12 Eosinophils % (Manual) 0 0-7 Basophils % (Manual) 0 0.0-2.0 Metamyelocytes % (manual) 0 Myelocytes % (Manual) 0 Promyelocytes % (Manual) 0 Blast Cells % (Manual) 0 Reactive Lymphocytes 0 Anisocytosis (manual) Moderate Jason Cells Moderate Test 04/08/25 21:12 04/08/25 20:15 04/08/25 19:42 Range/Units Urine Color Dark-yellow Yellow Urine Clarity Turbid H Clear Urine pH 5.0 5.0-9.0 Urine Specific [place] 1.017 1.001-1.035 Urine Protein 1+ H Negative Urine Ketones Trace Negative Urine Blood Negative Negative /uL Urine Nitrite Negative Negative Urine Bilirubin 1+ H Negative Urine Urobilinogen 2 H Negative mg/dL Urine Leukocyte Esterase Negative Negative /uL Urine RBC 2 0 - 4 /hpf Urine Microscopic WBC 3 0-5 /HPF Urine Squamous Epithelial Cells Few <5 /hpf Urine Amorphous Crystals Few None Seen /hpf Urine Bacteria None seen None Seen /hpf Urine Hyaline Casts Mod 0 - 2 /lpf Urine Mucus Few None Seen Urine Creatinine 179.41 H 30.0-125.0 mg/dL Urine Sodium < 10 L 40-220 mmol/L Urine Glucose Trace Normal mg/dL Blood Gas Liter Flow 4.00 Blood Gas Critical Value Read Back Yes Blood Gas Notified Whom catie Curry Blood Gas Notified Time [id number] Blood Gas Notified By elizabeth Cast B-Type Natriuretic Peptide 392.97 0-100 pg/mL Microbiology Date/Time Source Procedure Growth Status 04/08/25 22:35 Sputum Endotracheal Wash Gram Stain - Final Resulted 04/08/25 22:35 Sputum Endotracheal Wash Respiratory Culture Pending Resulted 04/08/25 19:42 Blood Blood Culture - Preliminary NO GROWTH AFTER 24 HOURS OF INCUBATION. Resulted Assessment Impression: Acute hypoxic respiratory failure On mechanical ventilator Septic shock Breast cancer with metastasis Atelectasis Pulmonary edema. Pleural effusions. Plan: s/p intubation on mechanical ventilator. CXR image and report reviewed. Devices in place. Cardiomegaly, pulmonary vascular congestion, perihilar opacities and small bilateral pleural effusions.. ABG reviewed, compensated. On AC mode; RR 20, VT 450, PEEP 5, FiO2 100% Titrate FIO2 to keep O2 saturation above 90%. VAP bundle. Daily ABG and CXR while intubated Sedate for ventilator synchrony Continue antibiotics. F/u cultures. Pressors as necessary for hemodynamic support Titrate to keep mean arterial pressure greater than 65 mmHg. Monitor renal function Monitor electrolytes. Supplement as necessary. Monitor ins and outs. GI prophylaxis. DVT prophylaxis. Prognosis: Poor given patient's multiple co-morbidities. Condition: Critical Rest of plan per hospitalist and other consultants. A total of 35 minutes of critical care time was spent reviewing the patient record, examining the patient, making a diagnostic and therapeutic plan, discussing this plan with the medical personnel, following up on diagnostic studies and following the patient for clinical stability excluding any and all procedures. At least 50% of this time was spent in direct, [id number] contact. Thank you, DONAL Adan, for allowing me to participate in this patient's care. Further recommendations will depend on the patient's clinical course. Please do not hesitate to contact me if you have any questions or concerns. This medical document was created using an electronic medical record system with [employer] dictation system. Although these documentations are being carefully reviewed, there may still be some phonetic and typographical changes. The errors are purely typographical, due to imperfection on the software program, and do not reflect any compromise in the patient's medical care. Plan discussed with: Son, Other (RN/DONAL Adan/) ROXY THAYER MD Apr 09, 2025 22:07
[2025-04-09 22:09] LABS: Anisocytosis Moderate
--- NOTE | 2025-04-09 22:11 | DVHPN2 ---
Progress Note - Dictate Date Seen: Apr 09, 2025 Medical Necessity Reason Pt with a Central, PICC or Fol: Yes The following are medically ne: Gant Catheter Reason for gant catheter: Strict I&O Subjective Patient seen and examined at bedside. Sedated, intubated on mechanical ventilator. Overnight events reviewed. vital signs Vital Sign Date Time Temp Pulse Resp B/P (MAP) Pulse Ox O2 Delivery O2 Flow Rate FiO2 04/09/25 21:30 134 20 116/48 (70) 93 04/09/25 20:05 100 04/09/25 20:00 98.4 98.4 04/09/25 20:00 Mechanical Ventilator+ 04/08/25 20:16 10 Total Intake and Output 04/08/25 04/08/25 04/09/25 14:59 22:59 06:59 Intake Total 417.35 ml Output Total 350 ml Balance 67.35 ml medications Current Medications Medications Dose Ordered Sig/Mitali Route Start Time Stop Time Status Last Admin Dose Admin Levalbuterol HCl 1.25 mg Q6HR NEB 04/09/25 00:00 04/09/25 18:59 Famotidine 10 mg Q12HR IV 04/08/25 22:00 04/09/25 10:39 Vancomycin HCl 0 ml @ 0 mls/hr UD IV 04/08/25 22:00 Furosemide 40 mg DAILY IV 04/09/25 10:00 04/09/25 10:39 Acetaminophen 650 mg Q6HP PRN MO 04/08/25 22:15 Midazolam HCl 50 ml @ 1 mls/hr Q24H IV 04/08/25 22:30 04/09/25 03:28 Vasopressin 20 units/Sodium Chloride 100 ml @ 9 mls/hr Q11H7M IV 04/09/25 08:45 04/09/25 20:30 Phenylephrine HCl 80 mg/Sodium Chloride 250 ml @ 7.5 mls/hr Q24H IV 04/09/25 10:15 04/09/25 11:30 Norepinephrine Bitartrate 32 mg/ Sodium Chloride 250 ml @ 0.938 mls/ hr Q24H IV 04/09/25 10:15 04/09/25 11:30 Fentanyl Citrate 250 ml @ 2.5 mls/hr Q24H IV 04/09/25 20:30 Hydrocortisone Sodium Succinate 50 mg Q6HR IV 04/10/25 00:00 Meropenem 50 ml @ 17 mls/hr Q12HR IV 04/09/25 22:00 objective Gen.: Patient lying in bed in medical ICU. Sedated, intubated on mechanical ventilator. Head: Normocephalic, atraumatic. Eyes: PERRLA. Ears: Normal external anatomy. Throat: Endotracheal tube and orogastric tube in place. Neck: Supple, trachea midline. Chest: Transmitted breath sounds bilaterally. Decreased air entry bilaterally. No wheezing. Bibasilar crackles. Cardiovascular: Positive S1, positive S2. Regular rate and rhythm. Abdomen: Positive bowel sounds in all 4 quadrants. Soft, nontender, nondistended. : Gant in place. Normal external genitalia. Rectal: Deferred. Skin: Warm, dry. Intact. Extremities: 2+ radial pulses bilaterally. No lower extremity edema. Neuro: Sedated. laboratory and microbiology Laboratory Tests 04/09/25 21:16 Test 04/09/25 21:16 Range/Units Serum Glucose 117 H 74-106 mg/dL Assessment/Plan Impression: Acute hypoxic respiratory failure On mechanical ventilator Septic shock Breast cancer with metastasis Atelectasis Pulmonary edema. Pleural effusions. Events: Remains on vent support On AC mode; RR 20-->16, VT 450, PEEP 5, FiO2 100-->55% Improved FiO2 requirements Sedated on Versed 3 mg/hr Pressors for hemodynamic support On Levophed 12 mcg/min and Richard-Synephrine 80 mcg/min Titrate to keep mean arterial pressure greater than 65 mmHg. IV fluids with NS at 125 ml/hr. Continue antibiotics Follow up cultures ABG reviewed, notable for alkalemia. CXR revealed multifocal airspace disease and small bilateral pleural effusions. Devices in place. Recommend higher level of care for pericardial window. Labs and imaging reviewed. Rest of plan as noted below. Plan: s/p intubation on mechanical ventilator. CXR image and report reviewed. Devices in place. Cardiomegaly, pulmonary vascular congestion, perihilar opacities and small bilateral pleural effusions.. ABG reviewed, compensated. On AC mode; RR 20, VT 450, PEEP 5, FiO2 100% Titrate FIO2 to keep O2 saturation above 90%. VAP bundle. Daily ABG and CXR while intubated Sedate for ventilator synchrony Continue antibiotics. F/u cultures. Pressors as necessary for hemodynamic support Titrate to keep mean arterial pressure greater than 65 mmHg. Follow up Oncology recommendations Monitor renal function Monitor electrolytes. Supplement as necessary. Monitor ins and outs. GI prophylaxis. DVT prophylaxis. Prognosis: Poor given patient's multiple co-morbidities. Condition: Critical Rest of plan per hospitalist and other consultants. A total of 35 minutes of critical care time was spent reviewing the patient record, examining the patient, making a diagnostic and therapeutic plan, discussing this plan with the medical personnel, following up on diagnostic studies and following the patient for clinical stability excluding any and all procedures. At least 50% of this time was spent in direct, [id number] contact. Thank you, DONAL Adan, for allowing me to participate in this patient's care. Further recommendations will depend on the patient's clinical course. Please do not hesitate to contact me if you have any questions or concerns. This medical document was created using an electronic medical record system with [employer] dictation system. Although these documentations are being carefully reviewed, there may still be some phonetic and typographical changes. The errors are purely typographical, due to imperfection on the software program, and do not reflect any compromise in the patient's medical care. Plan discussed with: Other (RN) Critical Care Time(min): 35 ROXY THAYER MD Apr 09, 2025 22:11
[2025-04-09] MEDS: HYDROCORTISONE SOD SUCC 100 MG/2ML INJ VIAL IV SCH (23:52)
[2025-04-10] VITALS (82 sets, daily range): BP systolic 23–162; BP diastolic 10–105; PULSE 59–158; RESP 9–29; TEMP 98.3–99.6; O2SAT 43–96
[2025-04-10] MEDS: fentaNYL Drip 2500mCg/250mlNS 250 ML IV SCH (00:51)
[2025-04-10 04:13] LABS: Hematocrit 52.9 % (36.0-46.0); Hemoglobin 17.7 g/dL (12.2-16.2); Mean Corpuscular Hemoglobin 30.1 pg (28.0-32.0); Mean Corpuscular Volume 90.3 fL (80.0-100.0); Nucleated Red Blood Cells % 3.0 %
[2025-04-10 04:18] LABS: Anion Gap 13 (5-15); BUN/Creatinine Ratio 41.8 (10.0-20.0); Calcium 9.3 mg/dL (8.7-10.4); Carbon Dioxide 21 mmol/L (20-31); Chloride 99 mmol/L (98-107)
[2025-04-10 04:36] LABS: Sodium 133 mmol/L (136-145)
[2025-04-10 04:37] LABS: Alanine Aminotransferase 278 U/L (7-40); Albumin 3.2 g/dL (3.2-4.8); Alkaline Phosphatase 875 U/L (46-116); Bilirubin, Direct 5.4 mg/dL (<0.3); Bilirubin, Total 7.3 mg/dL (0.2-1.0); Glucose 108 mg/dL (74-106); Total Protein 5.5 g/dL (5.7-8.2)
[2025-04-10 04:38] LABS: Blood Urea Nitrogen 82 mg/dL (9-23); Potassium 5.6 mmol/L (3.5-5.1)
--- NOTE | 2025-04-10 05:01 | DVH ---
CHEST RADIOGRAPH Indication: intvl Technique: Single frontal view of the chest was obtained COMPARISON: XY CHEST XRAY 1 VIEW on DOS: 04/08/25, XY CHEST XRAY 1 VIEW on DOS: 04/08/25, XY CHEST PORTAB LE on DOS: 04/08/25, XY CHEST PORTABLE on DOS: 03/12/25, XY CHEST PORTABLE on DOS: 03/10/25 FINDINGS: Lines and Tubes: Endotracheal tube, enteric catheter, right central venous catheter and pericardial d rain in satisfactory position. Lungs: Multifocal airspace disease Pleura: Small bilateral pleural effusions No pneumothorax. Cardiomediastinal contours: Cardiomegaly Bones: Unremarkable IMPRESSION: Lines and tubes in satisfactory position. No significant interval change.
[2025-04-10] MEDS: SODIUM ZIRCONIUM CYCL 10 GM PAK PO ONE (05:52)
[2025-04-10 06:41] LABS: Base Excess -9.9 mmol/L (-2.0-3.0)
[2025-04-10] MEDS: VASOPRESSIN 20 UNIT/ML ONE (06:55)
--- NOTE | 2025-04-10 10:24 | DVHPN2 ---
Progress Note Date Seen: Apr 10, 2025 Medical Necessity Reason Pt with a Central, PICC or Fol: No Subjective Other Systems: abg is worse -150 cc of fluid in drain repeat echo shows small effusion posterior, trivial near RV, much improved RV is hypokinetic Objective vital signs Vital Sign Date Time Temp Pulse Resp B/P (MAP) Pulse Ox O2 Delivery O2 Flow Rate FiO2 04/10/25 10:10 20 93 Mechanical Ventilator+ 100 100 04/10/25 09:30 136 04/10/25 08:45 90/68 (75) 04/10/25 00:00 98.3 98.3 04/08/25 20:16 10 Total Intake and Output 04/09/25 04/09/25 04/10/25 15:00 23:00 07:00 Intake Total 2188.5 ml 1233.696 ml 264.720 ml Output Total 1500 ml Balance 2188.5 ml 1233.696 ml -1235.280 ml medications Current Medications Medications Dose Ordered Sig/Mitali Route Start Time Stop Time Status Last Admin Dose Admin Levalbuterol HCl 1.25 mg Q6HR NEB 04/09/25 00:00 04/10/25 05:52 1.25 MG Famotidine 10 mg Q12HR IV 04/08/25 22:00 04/09/25 22:01 10 MG Vancomycin HCl 0 ml @ 0 mls/hr UD IV 04/08/25 22:00 Acetaminophen 650 mg Q6HP PRN ID 04/08/25 22:15 Midazolam HCl 50 ml @ 1 mls/hr Q24H IV 04/08/25 22:30 04/10/25 04:00 5 MLS/HR Vasopressin 20 units/Sodium Chloride 100 ml @ 9 mls/hr Q11H7M IV 04/09/25 08:45 04/09/25 20:30 9 MLS/HR Phenylephrine HCl 80 mg/Sodium Chloride 250 ml @ 7.5 mls/hr Q24H IV 04/09/25 10:15 04/10/25 03:30 7.5 MLS/HR Norepinephrine Bitartrate 32 mg/ Sodium Chloride 250 ml @ 0.938 mls/ hr Q24H IV 04/09/25 10:15 04/10/25 09:43 14.063 MLS/HR Fentanyl Citrate 250 ml @ 2.5 mls/hr Q24H IV 04/09/25 20:30 04/10/25 00:51 2.5 MLS/HR Hydrocortisone Sodium Succinate 50 mg Q6HR IV 04/10/25 00:00 04/10/25 05:52 50 MG Meropenem 50 ml @ 17 mls/hr Q12HR IV 04/09/25 22:00 04/09/25 22:01 17 MLS/HR Furosemide 40 mg BID IV 04/10/25 10:00 Examination: GENERAL:Abnormal, HEENT:Abnormal, LUNGS:Abnormal, CVS:Abnormal, ABDOMEN:Abnormal laboratory and microbiology Laboratory Tests 04/10/25 03:10 Test 04/10/25 03:10 Range/Units Serum Glucose 108 H 74-106 mg/dL Microbiology Date/Time Source Procedure Growth Status 04/08/25 22:35 Sputum Endotracheal Wash Gram Stain - Final Resulted 04/08/25 22:35 Sputum Endotracheal Wash Respiratory Culture Pending Resulted 04/08/25 19:42 Blood Blood Culture - Preliminary NO GROWTH AFTER 24 HOURS OF INCUBATION. Resulted Problem List/Assessment/Plan Problem List/Assessment/Plan stage IV metastatic breast cancer shock multiorgan failure persistent hyperkalemia Adelaida large pericardail effusion with thrombus sp emergency pericardiocentesis hypokinetic RV elevated D dimer resp failure will keep drain for 1 more day at this time, not a candidate for any anticoag at this time with drain in place cannot exclude PE in this pt/ however cannot be treated with anticoag given drain please try to correct acid /base --bicarb gtt or vent management per primary service iv lasix bid pressors as needed, sinus tachy her PLTs cont to drop her prognosis is very poor at this time r/o dvt with venous US 90 mins critical care time spent pt seen with dr real, RN and farm operations technical director at bedside Plan discussed with: Other (rn) My Orders My Orders Orders - TERESO CARDOSO MD Procedure Category Date Status Time C Arm Fluoroscopy Up XY 04/09/25 Taken To 60min 16:11 Cytology VASU 04/09/25 Transmitted 17:30 Body Fluid Culture W/ VASU 04/09/25 In Process GS 17:30 Amylase,Body Fluid LAB 04/09/25 In Process 17:30 Gram Stain VASU 04/09/25 In Process 17:30 Post Cath Vital Signs WANG 04/09/25 In Process Q 15min 17:25 Echo 2d Mode Cardiac US 04/10/25 Logged DOP Furosemide Injection PHA 04/10/25 In Process (Lasix Injection) 10:00 Date of Service: Apr 10, 2025 Billing Provider: TERESO CARDOSO MD Common Visit Codes: NOT BILLABLE TERESO CARDOSO MD Apr 10, 2025 10:24
[2025-04-10] MEDS: SODIUM BICARB 8.4% 50Meq/50ml SYR Vial IV ONE ×2 (11:29→12:37)
[2025-04-10] MEDS: EPINEPHrine HCL 250 ML IV ONE (11:41)
[2025-04-10] MEDS: EPINEPHrine HCL 250 ML IV SCH (11:41)
[2025-04-10] MEDS: FUROSEMIDE 40 MG/4 ML VIAL IV SCH (12:23)
[2025-04-10] MEDS: SODIUM BICARB 8.4% 50Meq/50ml SYR INJ ONE (12:37)
--- NOTE | 2025-04-10 12:52 | DVHNC2 ---
Arterial Puncture Indication: Assess ventilatory status, Assess acid-base status Procedure: Sterile Preparation, Arterial Punct Obtained Location: Right Femoral Informed consent obtained: Yes Risks/benefits/alt described: Yes Notes Requesting to placed arterial line by primary hospitalist. -ultrasound guidance used. CPT code 47981 -estimated blood loss: 5 mL Date of Service: Apr 10, 2025 Billing Provider: JOSÉ TANG NP Common Visit Codes: PROCEDURE ONLY Procedure Codes: [id number] LINE JOSÉ TANG NP Apr 10, 2025 12:52
[2025-04-10] MEDS ORDERED: VANCOMYCIN 750MG KIT 100 ML IV SCH (13:00)
--- NOTE | 2025-04-10 13:02 | DVHSR ---
APPROVED REPORT EXAM: Two-dimensional and M-mode echocardiogram with Doppler and color Doppler. Blood Pressure: 157/76 mmHg INDICATION Eval Pericardial Effusion RISK FACTORS Height: 4'11", Weight: 183 Conclusion lvef 55% RV enlarged, boggy and hypokinetic trivial pericardail effusion near RV, small near LV , no HD compromise
[2025-04-10] MEDS: VANCOMYCIN 750MG KIT 100 ML IV ONE (16:03)
--- NOTE | 2025-04-10 16:08 | DVHPN2 ---
Assessment/Plan Assessment/Plan ICU note 54 F w breast cancer (HER2+) s/p lumpectomy and LND on chemo in [facility], with brain mets s/p rad, intubated and mechanically ventilated for airway protection. patient was clinically worsening, increasing pressor requirements, further tachycardia. clinically in tamponade, she was given multiple rapid fluid boluses in the interim. transfor to [facility] for pericardial window, initially accepted by earth mover however declined by CT surgery. Discussed possible intervention with design engineering technician. informed family of high risk of during salvage procedure to attempt pericardiocenthesis while patient is coagulopathic, pericardial effusion likely from malignancy, and family declines blood product administration. Family decided to go through with procedure with understanding the risk. PAtient was brought to central lab technician and was successfuly placed pericardial drainage with clinical improvement however still in shock. Transfered to ICU, started on broad spectrum iv abx, stress dose steroid. planned for a line placement and possibly patient will be transfered for definitive treatment of pericardial window once more stable. seen today, patient was on 4 pressors. discussion with family, changed code s tatus to chemical code. patient is actively being resuscitated. a line placed. high suspicion of PE, however unable to get imaging to confir, and patient would not be a candidate for anticoagulation or thrombolytic agents too. physical exam intubated, sedated on mechanical vent mechanical breath sounds, coarse crackles distant heart sound abdomen soft no LE edema labs ekg imaging reviewed assessment and plan acute hypoxic RF req mech vent septic vs obstructive shock hyperkalemia SHELIA likely ATN transaminitis likely shock liver type 2 NM demand ischemia HFpEF? pericardial eff, cannot r/o tamponade PLEF breast cancer s/p lumpectomy, LND, chemorad likely liver, lung and pericardial mets pneumonia gp vs gn high likelyhood of PE c/w levophed, epi, phenyl, vaso, maintain MAP >65 c/w mechanical vent c/w empiric vanc and devang follow cultures trend cr, lft strict i/o pericardial drain in place diet hold dvt ppx hold gi ppx pepcid full code condition critical prognosis grim 90 minutes critical care time rendered Plan discussed with: Other My Orders Orders - KYLEIGH MONTERO MD Procedure Category Date Status Time Ventilator Orders RT 04/09/25 Transmitted 15:40 Fentanyl Drip PHA 04/09/25 In Process 2500mcg/250mlns 20:30 Chest Portable XY 04/09/25 Resulted 20:47 Hydrocortisone PHA 04/10/25 In Process Succinate Inj 00:00 Meropenem 1gm Ivpb PHA 04/09/25 In Process (Merrem 1gm/ Ns) 22:00 Communication Order ORDERS 04/09/25 Transmitted 20:51 Abg W/ Co-Ox RT 04/09/25 Logged 21:04 Us Guided Vascular US 04/10/25 Logged Access 09:14 Ventilator Orders RT 04/10/25 Transmitted 11:19 Abg W/ Co-Ox RT 04/11/25 Logged 04:00 Epinephrine Hcl PHA 04/10/25 In Process 11:30 Code Status CODE 04/10/25 Transmitted 16:02 Comprehensive LAB 04/11/25 Verified Metabolic Panel 04:00 Complete Blood Count LAB 04/11/25 Verified 04:00 Lactic Acid W/ Reflex LAB 04/11/25 Verified Order 04:00 Phosphorus LAB 04/11/25 Verified 04:00 Magnesium LAB 04/11/25 Verified 04:00 Abg W/ Co-Ox RT 04/10/25 Verified 16:04 Date of Service: Apr 10, 2025 Billing Provider: KYLEIGH MONTERO MD Common Visit Codes: 62737-PHGPRXTS CARE 30-74 MIN, 11601-GACIQFMC CARE-EACH +30MIN KYLEIGH MONTERO MD Apr 10, 2025 16:08
[2025-04-10 16:34] LABS: Base Excess -15.9 mmol/L (-2.0-3.0)
--- NOTE | 2025-04-10 18:03 | DVHPN2 ---
Progress Note Date Seen: Apr 10, 2025 Medical Necessity Reason Pt with a Central, PICC or Fol: Yes The following are medically ne: Gant Catheter Reason for gant catheter: Strict I&O Subjective Patient reports: Other (intubated) Review of Systems: Deferred Objective vital signs Vital Sign Date Time Temp Pulse Resp B/P (MAP) Pulse Ox O2 Delivery O2 Flow Rate FiO2 04/10/25 17:15 120 15 55/18 (30) 04/10/25 16:45 81 04/10/25 16:30 100 04/10/25 16:30 Mechanical Ventilator+ 04/10/25 16:00 99.2 99.2 04/08/25 20:16 10 Total Intake and Output 04/09/25 04/09/25 04/10/25 15:00 23:00 07:00 Intake Total 2188.5 ml 1233.696 ml 297.158 ml Output Total 1500 ml Balance 2188.5 ml 1233.696 ml -1202.842 ml medications Current Medications Medications Dose Ordered Sig/Mitali Route Start Time Stop Time Status Last Admin Dose Admin Levalbuterol HCl 1.25 mg Q6HR NEB 04/09/25 00:00 04/10/25 11:14 1.25 MG Famotidine 10 mg Q12HR IV 04/08/25 22:00 04/10/25 12:31 10 MG Vancomycin HCl 0 ml @ 0 mls/hr UD IV 04/08/25 22:00 Acetaminophen 650 mg Q6HP PRN NH 04/08/25 22:15 Midazolam HCl 50 ml @ 1 mls/hr Q24H IV 04/08/25 22:30 04/10/25 13:30 5 MLS/HR Vasopressin 20 units/Sodium Chloride 100 ml @ 9 mls/hr Q11H7M IV 04/09/25 08:45 04/10/25 16:44 9 MLS/HR Phenylephrine HCl 80 mg/Sodium Chloride 250 ml @ 7.5 mls/hr Q24H IV 04/09/25 10:15 04/10/25 03:30 7.5 MLS/HR Norepinephrine Bitartrate 32 mg/ Sodium Chloride 250 ml @ 0.938 mls/ hr Q24H IV 04/09/25 10:15 04/10/25 09:43 14.063 MLS/HR Fentanyl Citrate 250 ml @ 2.5 mls/hr Q24H IV 04/09/25 20:30 04/10/25 00:51 2.5 MLS/HR Hydrocortisone Sodium Succinate 50 mg Q6HR IV 04/10/25 00:00 04/10/25 12:35 50 MG Meropenem 50 ml @ 17 mls/hr Q12HR IV 04/09/25 22:00 04/10/25 12:31 17 MLS/HR Furosemide 40 mg BID IV 04/10/25 10:00 Epinephrine HCl 250 ml @ 7.5 mls/hr Q24H IV 04/10/25 11:30 04/10/25 16:43 37.5 MLS/HR Examination: GENERAL:Abnormal, LUNGS:Abnormal, CVS:Abnormal, MSK:Abnormal, NEURO:Abnormal laboratory and microbiology Laboratory Tests 04/10/25 03:10 Test 04/10/25 03:10 Range/Units Serum Glucose 108 H 74-106 mg/dL Microbiology Date/Time Source Procedure Growth Status 04/09/25 19:50 Nose MRSA Screen - Final Complete 04/09/25 17:15 Aspirate Gram Stain - Final Resulted 04/09/25 17:15 Aspirate Body Fluid Culture - Preliminary Resulted 04/08/25 22:35 Sputum Endotracheal Wash Gram Stain - Final Resulted 04/08/25 22:35 Sputum Endotracheal Wash Respiratory Culture - Preliminary Resulted 04/08/25 19:42 Blood Blood Culture - Preliminary NO GROWTH AFTER 24 HOURS OF INCUBATION. Resulted Problem List/Assessment/Plan Problem List/Assessment/Plan 1) Hemodynamically mediated SHELIA/VMN in setting of shock with multiorgan involvement. 2) CKD stage II, serum creatinine less than one approximately four weeks ago 3) stage IV breast cancer with metastatic disease to the lungs 4) hyperkalemia 5) acute hypoxemic respiratory failure 6) moderate to large pericardial effusion by CT imaging recs medical management of hyperkalemia as ordered on multiple vasopressors grave prognosis events noted d/w brother and sister Plan discussed with: Other My Orders My Orders Orders - BRITTNEY BELL MD Procedure Category Date Status Time Sodium Zirconium PHA 04/10/25 Logged Cyclosilicate 18:00 NS PHA 04/10/25 Transmitted 18:00 Dietary Evaluation Review Comments: 1. Intubated, pt's protein needs is based on her medical status of intubation and kidney function. 2. If EN/GI accesssible and NG in place, TF glucerna@ 35ml/hr providing 50g pro, 1008kcal, meeting pt's estimated needs @100% for energy and protein. 3. EN/GI unaccessible, offer TPN per pharmacy to meet at least 75% of her needs. 4. Reassess pt's est. needs when pt is off vent. Expected Outcomes/Goals: off vent, improved nutrition status with adequate nutrition support. Critical Care Time (mins): 42 BRITTNEY BELL MD Apr 10, 2025 18:03
[2025-04-10] MEDS: SODIUM CHLORIDE 0.9% 250 ML IV ONE (18:35)
[2025-04-10] MEDS: SODIUM ZIRCONIUM CYCL 10 GM PAK PO SCH (18:37)
--- NOTE | 2025-04-10 18:38 | DVH ---
Technique: Real-time ultrasound imaging, with color Doppler and compression of the bilateral common femoral vein, femoral vein, greater saphenous vein, and popliteal vein. Indication: elevated d-dimer, swollen legs Comparison: None Findings: There is normal compressibility and flow augmentation in all of the imaged deep veins. There are no f illing defects. There is bilateral lower extremity soft tissue edema. Impression: No evidence of DVT in the bilateral lower extremities
[2025-04-10] MEDS ORDERED: CALCIUM CHLOR(10%) 100MG/ML 10ML SYRINGE IV ONE (19:17)
--- NOTE | 2025-04-10 22:30 | DVHDS2 ---
Summary Date of Admission Apr 08, 2025 at 22:17 Date and Time of Expiration: Apr 09, 2025 19:18 Labs/Diagnostic Data: Laboratory Results Test 04/10/25 19:14 04/10/25 16:28 04/10/25 06:34 04/10/25 03:10 POC Glucose 16 mg/dl (70-106) Blood Gas Specimen Type Arterial Blood Gas Sample Site Right radial Blood Gas Patient Temperature 37.0 Arterial Blood Date Drawn [id number] Arterial Blood pH 7.123 (7.350-7.450) Arterial Blood Partial Pressure CO2 39.9 mmHg (32.0-45.0) Arterial Blood Partial Pressure O2 72.2 mmHg (83.0-108.0) Arterial Blood HCO3 12.8 mmol/L (21.0-28.0) Arterial Blood Oxygen Saturation 89.1 % (94.0-98.0) Arterial Blood Base Excess -15.9 mmol/L (-2.0-3.0) Arterial Blood Oxyhemoglobin 88.3 % (94.0-98.0) Arterial Blood Carboxyhemoglobin 0.4 % (0.5-1.5) Arterial Blood Methemoglobin 0.5 % (0.0-1.5) Joe Test Modified Blood Gas Total Hemoglobin 16.90 g/dL (12.0-16.0) Blood Gas Set Respiration Rate 20.0 Blood Gas Modality Vent - ac FiO2 % 100.0 Blood Gas Tidal Volume 400.0 Blood Gas Critical Value Read Back yes Blood Gas Notified Whom Blood Gas Notified Time [id number] Blood Gas Notified By stone rubber julio c Blood Gas PEEP or CPAP 5.0 White Blood Count 18.4 10^3/uL (4.4-10.8) Red Blood Count 5.86 10^6/uL (4.0-5.20) Hemoglobin 17.7 g/dL (12.2-16.2) Hematocrit 52.9 % (36.0-46.0) Mean Corpuscular Volume 90.3 fL (80.0-100.0) Mean Corpuscular Hemoglobin 30.1 pg (28.0-32.0) Mean Corpuscular Hemoglobin Concent 33.4 g/dL (32.0-36.0) Red Cell Distribution Width 19.5 % (11.8-14.3) Platelet Count 81 10^3/uL (140-450) Mean Platelet Volume 8.4 fL (6.9-10.8) Neutrophils (%) (Auto) 94.6 % (37.0-80.0) Lymphocytes (%) (Auto) 0.6 % (10.0-50.0) Monocytes (%) (Auto) 4.5 % (0.0-12.0) Eosinophils (%) (Auto) 0.0 % (0.0-7.0) Basophils (%) (Auto) 0.3 % (0.0-2.0) Neutrophils # (Auto) 17.4 10 ^3/uL (1.6-8.6) Lymphocytes # (Auto) 0.1 10 ^3/uL (0.4-5.4) Monocytes # (Auto) 0.8 10 ^3/uL (0-1.3) Eosinophils # (Auto) 0 10 ^3/uL (0-0.8) Basophils # (Auto) 0.1 10 ^3/uL (0-0.2) Nucleated Red Blood Cells 3.0 % Sodium Level 133 mmol/L (136-145) Potassium Level 5.6 mmol/L (3.5-5.1) Chloride Level 99 mmol/L (98-107) Carbon Dioxide Level 21 mmol/L (20-31) Anion Gap 13 (5-15) Blood Urea Nitrogen 82 mg/dL (9-23) Creatinine 1.96 mg/dL (0.550-1.02) Glomerular Filtration Rate Calc 30 mL/min (>90) BUN/Creatinine Ratio 41.8 (10.0-20.0) Serum Glucose 108 mg/dL (74-106) Calcium Level 9.3 mg/dL (8.7-10.4) Phosphorus Level 5.0 mg/dL (2.4-5.1) Total Bilirubin 7.3 mg/dL (0.2-1.0) Direct Bilirubin 5.4 mg/dL (<0.3) Aspartate Amino Transferase (AST) 344 U/L (13-40) Alanine Aminotransferase (ALT) 278 U/L (7-40) Alkaline Phosphatase 875 U/L (46-116) Total Protein 5.5 g/dL (5.7-8.2) Albumin 3.2 g/dL (3.2-4.8) Random Vancomycin Level 9.9 ug/mL (5-10) Test 04/09/25 21:16 04/09/25 17:15 04/09/25 02:12 04/08/25 23:38 Platelet Estimate Decreased Anisocytosis (manual) Moderate Lactic Acid Level 2.3 mmol/L (0.4-2.0) Body Fluid Source Pericardial fluid Body Fluid WBC (Manual) 522 CUMM (0-200) Body Fluid RBC (Manual) 354208 CUMM (0-2000) Body Fluid Mononuclear Cells 69 % Body Fluid Polymorphonuclear Cells 31 % (0-25) Prothrombin Time 15.2 sec (9.3-11.8) Prothrombin Time INR 1.49 (0.9-1.15) Activated Partial Thromboplast Time 31.5 SEC (24.5-34.5) D-Dimer, Quantitative 14.67 mg/L FEU (0.0-0.49) Blood Gas Spontaneous Rate 20 Blood Gas Spontaneous Tidal Volume 471 Blood Gas Inspiratory Pressure 27.0 Bl Gas Inspiratory/Expiratory Ratio 1:2 Test 04/08/25 23:20 04/08/25 21:38 04/08/25 21:12 04/08/25 20:15 Troponin I High Sensitivity 416 ng/L (</=34) Differential Total Cells Counted 100.0 (100) Neutrophils % (Manual) 88 (37.0-80.0) Band Neutrophils % (Manual) 2 Lymphocytes % (Manual) 2 (10.0-50.0) Monocytes % (Manual) 8 (0-12) Eosinophils % (Manual) 0 (0-7) Basophils % (Manual) 0 (0.0-2.0) Metamyelocytes % (manual) 0 Myelocytes % (Manual) 0 Promyelocytes % (Manual) 0 Blast Cells % (Manual) 0 Reactive Lymphocytes 0 Jason Cells Moderate Urine Color Dark-yellow (Yellow) Urine Clarity Turbid (Clear) Urine pH 5.0 (5.0-9.0) Urine Specific [place] 1.017 (1.001-1.035) Urine Protein 1+ (Negative) Urine Ketones Trace (Negative) Urine Blood Negative /uL (Negative) Urine Nitrite Negative (Negative) Urine Bilirubin 1+ (Negative) Urine Urobilinogen 2 mg/dL (Negative) Urine Leukocyte Esterase Negative /uL (Negative) Urine RBC 2 /hpf (0 - 4) Urine Microscopic WBC 3 /HPF (0-5) Urine Squamous Epithelial Cells Few /hpf (<5) Urine Amorphous Crystals Few /hpf (None Seen) Urine Bacteria None seen /hpf (None Seen) Urine Hyaline Casts Mod /lpf (0 - 2) Urine Mucus Few (None Seen) Urine Creatinine 179.41 mg/dL (30.0-125.0) Urine Sodium < 10 mmol/L (40-220) Urine Glucose Trace mg/dL (Normal) Blood Gas Liter Flow 4.00 Test 04/08/25 19:42 B-Type Natriuretic Peptide 392.97 pg/mL (0-100) Other Laboratory Tests 04/10/25 03:10 Brief Hx & Hospital Course: 54 F w breast cancer (HER2+) s/p lumpectomy and LND on chemo in [facility] [place], with brain mets s/p rad, intubated and mechanically ventilated for airway protection. patient was clinically worsening, increasing pressor requirements, further tachycardia. clinically in tamponade, she was given multiple rapid fluid boluses in the interim. transfor to [place] for pericardial window, initially accepted by gasoline finisher however declined by CT surgery. Discussed possible intervention with appliance fixer. informed family of high risk of during salvage procedure to attempt pericardiocenthesis while patient is coagulopathic, pericardial effusion likely from malignancy, and family declines blood product administration. Family decided to go through with procedure with understanding the risk. PAtient was brought to laboratory animal care veterinarian and was successfuly placed pericardial drainage with clinical improvement however still in shock. Transfered to ICU, started on broad spectrum iv abx, stress dose steroid. planned for a line placement and possibly patient will be transfered for definitive treatment of pericardial window once more stable. worsening shock patient was on 4 pressors. discussion with family, changed code status to chemical code. patient is actively being resuscitated. a line placed. high suspicion of PE, however unable to get imaging to confir, and patient would not be a candidate for anticoagulation or thrombolytic agents too. not maintaining perfusion with 4 pressors. code was called, patient at 19.[address] Mauro Final Diagnosis/Problems List acute [facility] vs [facility] shock hyperkalemia SHELIA likely ATN transaminitis likely shock liver type 2 GA demand ischemia HFpEF? pericardial eff, cannot r/o tamponade PLEF breast cancer s/p lumpectomy, LND, chemorad likely liver, lung and pericardial mets pneumonia gp vs gn high likelyhood of PE Discharge Disposition: at Hospital KYLEIGH MONTERO MD Apr 10, 2025 22:30
--- NOTE | 2025-04-10 23:49 | RESUS ---
CODE BLUE ASSESSSMENT History of Events History of Events: 54 year old female history of stage IV breast cancer with lung mets, pleural and pericardial effusions brought in by EMS from home complaining of shortness of breath that started today while she was undergoing a CT scan. Patient states she could not lie flat for the scan. Patient also notes worsening leg edema over the past week, orthopnea and dyspnea on exertion. Patient is on 2 L nasal cannula oxygen at baseline, and was found by EMS to be hypoxic on 2 L. She is currently saturating 94% on 5 L nasal cannula. She denies fever, cough or chest pain. Patient was discharged from our facility March 13 with diagnoses of #Acute hypoxic respiratory failure likely due to right-sided pleural effusion and pericardial effusion, #Right-sided pleural effusion likely due to malignancy, #Acute pericardial effusion likely due to malignancy, #Possible acute multifocal pneumonia, #pneumonia gram+/gram-, #Acute urinary tract infection, #History of breast cancer diagnosed in 2017, currently on chemotherapy ([facility]). Patient underwent thoracentesis. Cardiology recommended conservative management of the pericardial effusion. ON 04/09 PT HAD AN Ultrasound-guided pericardiocentesis and implantation of pericardial drain with fluid removal and sedation. TONIGHT PT BECAME BRADICARDIC AND LOST PULSES, CHEMICAL CODE DONE PER FAMILY Initial Information Date: Apr 10, 2025 Time: 19:10 Location of Arrest: ICU ([place]) Arrest Witnessed: Yes CPR started initial time: 19:10 CPR started by whom: Hospital Staff Last seen well: PRIOR TO ARREST Pre-Hospital Care: ACLS Type of arrest: Cardiac, Respiratory, Adult, Witnessed Spontaneous Respirations: No Pulse Present: No Monitoring: ECG, Pulse Oximetry, Apnea, Telemetry Crash Cart Opened and Supplies: Yes Airway Ventilation Breathing at Onset: Apneic O2 Sat by Pulse Oximetry: 0 Oxygen Delivery Method: Mechanical Ventilator Intubation Size: 8.0 cuffed Intubated orally: Yes Tube secured at: 24 Comments: PREVIOUSLY INTUBATED Circulation Circulation : Time: 19:11 Pulse Rate (adult): 0 Blood Pressure Systolic: 0 Blood Pressure Diastolic: 0 Temperature (Fahrenheit): 99.2 Medications & Response Medications and Responses #1: Medication Time: 19:11 ADULT Medications Given ADULT: Epinephrine 1 mg, Sodium Bacarbinate 50 meq Route of Administration: IV Heart Rate: 0 EKG Rhythm: PEA Blood Pressure Systolic: 0 Blood Pressure Diastolic: 0 Respiratory Rate: 0 O2 Sat by Pulse Oximetry: 0 EKG Rhythm: PEA Comment NO PULSE 1913 Medications and Responses #2: Medication Time: 19:14 ADULT Medications Given ADULT: Epinephrine 1 mg, 2 Amps Na Bicarb, D50 (amp), Calcium Chloride 10 mL Route of Administration: IV Heart Rate: 0 EKG Rhythm: PEA Blood Pressure Systolic: 0 Blood Pressure Diastolic: 0 Respiratory Rate: 0 O2 Sat by Pulse Oximetry: 0 EKG Rhythm: PEA Comment 2016 NO PULSE TO2017 Pacing Pacer Pads Applied and Pacing: Yes Procedure - Central Venous Cat Central venous catheter site: RIGHT IJ T Comment: PLACED PREVIOUSLY Procedure - Kim Catheter Comment: PREVIOUSLY PLACED Nurses Notes Wingo Coma Scale Eye Opening: None (1) Wingo Coma Scale Verbal: None (1) [place]ingo Coma Scale Motor: None (1) Glascow Total: 3 Time Code Ended Time Code Ended: 20:18 Post Arrest Status: Outcome of code: Unsuccessful Patient pronounced by: DR. THAYER Time patient pronounced: 20:18 Family notified: Yes Attending called: Yes Code Team Present: DR. THAYER, JF PEOPLES, DR BENÍTEZ RN HS, YARY RN, SEVERINO RN, DES RN, HOLLY RN STETATERT, EMILY RT. Post Resuscitation Neurologica Pupil Size: 4 Comment: JEVON CHERRY Apr 10, 2025 23:49
--- NOTE | 2025-04-10 23:49 | DVHPN2 ---
Progress Note - Dictate Date Seen: Apr 10, 2025 Medical Necessity Reason Pt with a Central, PICC or Fol: Yes The following are medically ne: Gant Catheter Reason for gant catheter: Strict I&O Subjective Patient seen and examined at bedside. Sedated, intubated on mechanical ventilator. Overnight events reviewed. vital signs Vital Sign Date Time Temp Pulse Resp B/P (MAP) Pulse Ox O2 Delivery O2 Flow Rate FiO2 04/10/25 19:09 59 28 23/13 (16) 43 100 04/10/25 18:30 Mechanical Ventilator+ 04/10/25 16:00 99.2 99.2 04/08/25 20:16 10 Total Intake and Output 04/09/25 04/09/25 04/10/25 15:00 23:00 07:00 Intake Total 2188.5 ml 1233.696 ml 297.158 ml Output Total 1500 ml Balance 2188.5 ml 1233.696 ml -1202.842 ml objective Gen.: Patient lying in bed in medical ICU. Sedated, intubated on mechanical ventilator. Head: Normocephalic, atraumatic. Eyes: PERRLA. Ears: Normal external anatomy. Throat: Endotracheal tube and orogastric tube in place. Neck: Supple, trachea midline. Chest: Transmitted breath sounds bilaterally. Decreased air entry bilaterally. No wheezing. Bibasilar crackles. Cardiovascular: Positive S1, positive S2. Regular rate and rhythm. Abdomen: Positive bowel sounds in all 4 quadrants. Soft, nontender, nondistended. : Gant in place. Normal external genitalia. Rectal: Deferred. Skin: Warm, dry. Intact. Extremities: 2+ radial pulses bilaterally. No lower extremity edema. Neuro: Sedated. laboratory and microbiology Laboratory Tests 04/10/25 03:10 Test 04/10/25 03:10 Range/Units Serum Glucose 108 H 74-106 mg/dL Assessment/Plan Impression: Acute hypoxic respiratory failure On mechanical ventilator Septic shock Breast cancer with metastasis Atelectasis Pulmonary edema. Pleural effusions. Multiorgan failure Events: Remains on vent support On AC mode; RR 28, VT 400-->450, PEEP 5, FiO2 100% Obtain ABG in 1 hour. Sedated on Versed 3 mg/hr On multiple pressors for hemodynamic support On Levophed 30 mcg/min, Richard-Synephrine 180 mcg/min, epinephrine 10 mcg/min and vasopressin 0.03 units/min Titrate to keep mean arterial pressure greater than 65 mmHg. Increased pressor requirements ABG reviewed, notable for acidemia Bicarb pushes given. Continue antibiotics Chemical code. Labs and imaging reviewed. Note, patient is s/p multiorgan failure. Poor prognosis Patient coded at bedside. Time of pronounced 1918 hours. Please see Code Blue sheet for full details. Plan: s/p intubation on mechanical ventilator. On AC mode; RR 28, VT 450, PEEP 5, FiO2 100% Titrate FIO2 to keep O2 saturation above 90%. VAP bundle. Daily ABG and CXR while intubated Sedate for ventilator synchrony Continue antibiotics. F/u cultures. Pressors as necessary for hemodynamic support Titrate to keep mean arterial pressure greater than 65 mmHg. Follow up Oncology recommendations Monitor renal function Monitor electrolytes. Supplement as necessary. Monitor ins and outs. GI prophylaxis. DVT prophylaxis. Prognosis: Poor given patient's multiple co-morbidities. Condition: Critical Rest of plan per hospitalist and other consultants. A total of 35 minutes of critical care time was spent reviewing the patient record, examining the patient, making a diagnostic and therapeutic plan, discussing this plan with the medical personnel, following up on diagnostic studies and following the patient for clinical stability excluding any and all procedures. At least 50% of this time was spent in direct, [id number] contact. Thank you, DONAL Adan, for allowing me to participate in this patient's care. Further recommendations will depend on the patient's clinical course. Please do not hesitate to contact me if you have any questions or concerns. This medical document was created using an electronic medical record system with [employer] dictation system. Although these documentations are being carefully reviewed, there may still be some phonetic and typographical changes. The errors are purely typographical, due to imperfection on the software program, and do not reflect any compromise in the patient's medical care. Dietary Evaluation Review Comments: 1. Intubated, pt's protein needs is based on her medical status of intubation and kidney function. 2. If EN/GI accesssible and NG in place, TF glucerna@ 35ml/hr providing 50g pro, 1008kcal, meeting pt's estimated needs @100% for energy and protein. 3. EN/GI unaccessible, offer TPN per pharmacy to meet at least 75% of her needs. 4. Reassess pt's est. needs when pt is off vent. Expected Outcomes/Goals: off vent, improved nutrition status with adequate nutrition support. Plan discussed with: Other (CLARY Howard) Critical Care Time(min): 35 ROXY THAYER MD Apr 10, 2025 23:49
== END 2025-04-10 19:18 | DRG 871 ==
LOC: EDUNIT# 19:13 → EDBD 19:13 → ER 19:17 → OVERFLOW 22:17 → ICU WEST 04-09 19:42
PROVIDERS: ADMIT Student in an Organized Health Care Education/Training Program; ATTEND Student in an Organized Health Care Education/Training Program
PROC: 02H633Z Insertion of Infusion Device into Right Atrium, Percutaneous Approach (ICD-10-PCS; principal; 2025-04-08)
PROC: 0BH17EZ Insertion of Endotracheal Airway into Trachea, Via Natural or Artificial Opening (ICD-10-PCS; 2025-04-08)
PROC: 5A1945Z Respiratory Ventilation, 24-96 Consecutive Hours (ICD-10-PCS; 2025-04-08)
PROC: 5A09357 Assistance with Respiratory Ventilation, Less than 24 Consecutive Hours, Continuous Positive Airway Pressure (ICD-10-PCS; 2025-04-08)
PROC: 0W9D30Z Drainage of Pericardial Cavity with Drainage Device, Percutaneous Approach (ICD-10-PCS; 2025-04-09)
PROC: 04HY32Z Insertion of Monitoring Device into Lower Artery, Percutaneous Approach (ICD-10-PCS; 2025-04-10)
DX: A41.9 Sepsis, unspecified organism (principal); I21.A1 Myocardial infarction type 2; J96.01 Acute respiratory failure with hypoxia; K72.00 Acute and subacute hepatic failure without coma; N17.0 Acute kidney failure with tubular necrosis; R65.21 Severe sepsis with septic shock; J15.69 Pneumonia due to other Gram-negative bacteria; J15.9 Unspecified bacterial pneumonia; I31.39 Other pericardial effusion (noninflammatory); J81.1 Chronic pulmonary edema; I50.32 Chronic diastolic (congestive) heart failure; I47.19 Other supraventricular tachycardia; J91.8 Pleural effusion in other conditions classified elsewhere; N18.2 Chronic kidney disease, stage 2 (mild); E87.5 Hyperkalemia; I49.9 Cardiac arrhythmia, unspecified; E66.9 Obesity, unspecified; Z85.3 Personal history of malignant neoplasm of breast; Z83.3 Family history of diabetes mellitus; Z82.49 Family history of ischemic heart disease and other diseases of the circulatory system; Z92.3 Personal history of irradiation; Z88.1 Allergy status to other antibiotic agents; Z91.040 Latex allergy status; Z91.048 Other nonmedicinal substance allergy status; Z68.34 Body mass index [BMI] 34.0-34.9, adult; Z79.899 Other long term (current) drug therapy
CPT/HCPCS: 31500; 33010; 33016; 36415; 36556; 36600; 36620; 70450; 71045; 74176; 80048; 80053; 80076; 80202; 81001; 82150; 82570; 82805; 82962; 83605; 83880; 84100; 84300; 84484; 85007; 85025; 85027; 85379; 85610; 85730; 87040; 87070; 87077; 87081; 87186; 87205; 89051; 93005; 93306; 93970; 94002; 94003; 94640; 94644; 94660; 96365; 96375; 99152; 99291; 99292; G0378; J0171; J0330; J1815; J2185; J3430; J3490